=== PATIENT | male | born 1955 | race Caucasian/White ===

== ENCOUNTER 2017-02-17 11:46 | Emergency (ER) | payer BC ==
[2017-02-17 12:13] VITALS: BP 126/76
--- NOTE | 2017-02-17 12:43 | EDM.PDOC ---
ED HPI Trauma - General Chief Complaint: Upper Extremity Injury/Pain Stated Complaint: Thumb swelling Time Seen by Provider: 02/17/17 12:25 Source: Reports: Patient, RN notes reviewed History Limitations: Reports: No limitations - History of Present Illness INITIAL COMMENTS - FREE TEXT/NARRATIVE: 61 year old male presents to the ED with 1 day history of left thumb swelling, redness, and pain. He has a history of an amptuation to the thumb and says these symptoms are similar to when he required an amputation. He also has amputations to his 3rd and 4th fingers as a result of a table saw accident. He also has a history of gout. He's had gout in his foot but never in his hands. He 's had no injury or skin lesions to the thumb. No fever or chills. Allergies/ADRs: Allergies cephalexin [From Keflex] Allergy (Verified 11/25/16 22:26) Rash codeine Allergy (Verified 11/25/16 22:26) Rash Penicillins Allergy (Verified 11/25/16 22:26) Rash Home Medications: Ambulatory Orders Aspirin [Halfprin] 81 mg PO DAILY 05/08/15 [Confirmed 11/25/16] Levothyroxine 75 mcg PO DAILY 05/08/15 [Confirmed 11/25/16] Cholecalciferol (Vitamin D3) [Vitamin D3] 1,000 mg PO DAILY 11/25/16 [Confirmed 11/25/16] Cyanocobalamin (Vitamin B12) [Vitamin B12] 2,000 mg PO DAILY 11/25/16 [ Confirmed 11/25/16] Diltiazem HCl [Dilt-Xr] 180 mg PO DAILY 11/25/16 [Confirmed 11/25/16] Garlic 1 each PO DAILY 11/25/16 [Confirmed 11/25/16] Krill/Om-3/DHA/EPA/Phospho/Ast [Krill Oil 1,000 mg Softgel] 2 tab PO DAILY 11/25 [Confirmed 11/25/16] Loratadine [Claritin] 10 mg PO DAILY 11/25/16 [Confirmed 11/25/16] Methylphenidate [Ritalin] 5 mg PO ASDIRECTED PRN 11/25/16 [Confirmed 11/25/16] Multivitamin [Multivitamins] 1 tab PO DAILY 11/25/16 [Confirmed 11/25/16] Policos/Inositol Niac/Garlic [Arnhajlshpt-Nfdwfn-Ypbhps] 1 tab PO DAILY [Confirmed 11/25/16] Psyllium Husk [Psyllium] 0.4 gm PO DAILY 11/25/16 [Confirmed 11/25/16] Saw/Vit E/Sod Sandie/Lyc/Beta/Pyg [Prostate Health Caplet] 1 tab PO DAILY 11/25/16 [Confirmed 11/25/16] Ubidecarenone [COQ-10] 100 mg PO DAILY 11/25/16 [Confirmed 11/25/16] Rosuvastatin [Crestor] 5 mg PO BEDTIME #30 tablet 11/26/16 Past Medical History Other HEENT History: Lasik Cardiovascular History: Reports: Afib, High cholesterol, [place] Respiratory History: Reports: Sleep apnea Other Respiratory History: Not using CPAP anymore at this time - Has an allergic reaction to it. Currently uses 2L oxygen at night for sleep apnea Musculoskeletal History: Reports: Gout, Other (see below) Other Musculoskeletal History: Low back surgery x2. herniated disc 1986. discs were pinching spinal cord 2016 Endocrine/Metabolic History: Reports: Hypothyroidism Other Dermatologic History: Has had a few moles and areas of skin removed in case it is cancerous. 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 Implant in upper right to hold in 4 teeth. GI Surgical History: Reports: Hernia repair/other Other GI Surgeries/Procedures: 3 hernia repairs. colonoscopy a few years ago Neurological Surgical History: Reports: Lumbar spine Musculoskeletal Surgical History: Reports: Amputation Other Musculoskeletal Surgeries/Procedures:: left hand 3rd and 4th and thumb, index finger was reattached Social & Family History - Family History Neurological: Reports: Alzheimers disease Other Oncologic Family History: father had cancer - Tobacco Use Smoking Status *Q: Former Smoker Years of Tobacco use: 5 Packs/Tins Daily: 0.1 Used Tobacco, but Quit: No Month Tobacco Last Used: 7 - Caffeine Use Caffeine Use: Reports: Soda - Alcohol Use Days Per Week of Alcohol Use: 7 Number of Drinks Per Day: 2 Total Drinks Per Week: 14 - Recreational Drug Use Recreational Drug Use: No Drug Use in Last 12 Months: No Other Recreational Drug Type: pot when he was young - Living Situation & Occupation Living situation: Reports: , with spouse 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 Denies: Shortness of Breath Cardiovascular: Reports: no symptoms. Denies: chest pain Musculoskeletal: Reports: other (left thumb pain) Skin: Reports: erythema (left thumb) Neurological: Reports: No Symptoms. Denies: Numbness, Tingling Trauma Exam - Physical Exam Exam: See Below Exam Limited By: No limitations General Appearance: Reports: alert, WD/WN, no apparent distress Respiratory Exam: Reports: no respiratory distress, lungs clear Cardiovascular: Reports: regular rate, rhythm Extremities: Reports: other (swelling and tenderness to left thumb, mild erythema. No increased warmth. No skin lesions. No drainage. Amptuations noted to left thumb, 3rd and 4th fingers. Deformity noted to left index finger which is chronic.) Neurologic: Reports: no motor/sensory deficits, alert, normal mood/affect Course - Vital Signs Last Recorded V/S: Last Vital Signs Temp 98.0 F 02/17/17 12:11 Pulse 62 02/17/17 12:11 Resp 20 02/17/17 12:11 BP 126/76 02/17/17 12:11 Pulse Ox 94 L 02/17/17 12:11 - Re-Assessments/Exams Free Text/Narrative Re-Assessment/Exam: Differential includes infection versus gout. Patient has no fever or signs of systemic illness, therefore labs are not indicated at this time. Will start on doxycycline 100mg PO BID x10 days (sent to [facility]). Also will have him take 3 day course of Naproxyn. Cautioned about prolonged use of NSAIDs while on cardiac mediations. 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
== END 2017-02-17 12:55 | disposition home or self-care (01) ==
LOC: JD.ED 11:46
DX: M19.042 Primary osteoarthritis, left hand (principal); I10 Essential (primary) hypertension; E78.00 Pure hypercholesterolemia, unspecified; G47.30 Sleep apnea, unspecified; E03.9 Hypothyroidism, unspecified; Z98.890 Other specified postprocedural states; Z79.899 Other long term (current) drug therapy; Z87.891 Personal history of nicotine dependence; Z79.82 Long term (current) use of aspirin; Z88.0 Allergy status to penicillin; Z88.1 Allergy status to other antibiotic agents; Z88.5 Allergy status to narcotic agent
CPT/HCPCS: 99283

== ENCOUNTER 2017-03-15 03:57 | Emergency (ER) | payer BC ==
[2017-03-15 04:06] VITALS: BP 121/90
[2017-03-15] MEDS ORDERED: Sodium Chloride 0.9% 10 ML Syringe FLUSH PRN (04:19)
[2017-03-15] MEDS ORDERED: Diltiazem 25 MG/5 ML SDV IVPUSH ONE (04:20)
--- NOTE | 2017-03-15 04:38 | EDM.PDOC ---
ED HPI GENERAL MEDICAL PROBLEM - General Chief Complaint: Back Pain or Injury Stated Complaint: BACK PAIN Time Seen by Provider: 03/15/17 04:06 Source of Information: Reports: Patient History Limitations: Reports: No Limitations - History of Present Illness INITIAL COMMENTS - FREE TEXT/NARRATIVE: The patient presents with left upper back pain and left scapula pain. This started last night before he went to bed. He did not lift anything, twist or fall. He has no recollection of an injury. He has a history of an [place] and A- fib. He did not need a stent and he is no on any blood thinners. He has no pain in his chest. He has no fever, chills, cough, congestion or runny nose. He has no shortness of breath. His back hurts more when taking a deep breath. He has no abdominal pain, nausea or vomiting. Onset: gradual Duration: Day(s): (Last night before bed) Location: Reports: back (Left upper back) Quality: Reports: Sharp Severity: moderate Improves with: Reports: None Worsens with: Reports: Breathing, Movement Associated Symptoms: Denies: chest pain, cough, fever/chills, nausea/vomiting, shortness of breath Left Middle Back Pain Score (Numeric/FACES): 8 - Related Data Allergies Allergy/AdvReac Type Severity Reaction Status Date / Time cephalexin [From Keflex] Allergy Rash Verified 03/15/17 04:06 codeine Allergy Rash Verified 03/15/17 04:06 Penicillins Allergy Rash Verified 03/15/17 04:06 Home Meds: Home Meds Aspirin [Halfprin] 81 mg PO DAILY 05/08/15 [History] Levothyroxine 75 mcg PO DAILY 05/08/15 [History] Cholecalciferol (Vitamin D3) [Vitamin D3] 1,000 mg PO DAILY 11/25/16 [History] Cyanocobalamin (Vitamin B12) [Vitamin B12] 2,000 mg PO DAILY 11/25/16 [History] Diltiazem HCl [Dilt-Xr] 180 mg PO DAILY 11/25/16 [History] Garlic 1 each PO DAILY 11/25/16 [History] Krill/Om-3/DHA/EPA/Phospho/Ast [Krill Oil 1,000 mg Softgel] 2 tab PO DAILY 11/25 [History] Loratadine [Claritin] 10 mg PO DAILY 11/25/16 [History] Methylphenidate [Ritalin] 5 mg PO ASDIRECTED PRN 11/25/16 [History] Multivitamin [Multivitamins] 1 tab PO DAILY 11/25/16 [History] Policos/Inositol Niac/Garlic [Mlsoilcfnqn-Dahcwi-Gsrmac] 1 tab PO DAILY [History] Psyllium Husk [Psyllium] 0.4 gm PO DAILY 11/25/16 [History] Saw/Vit E/Sod Sandie/Lyc/Beta/Pyg [Prostate Health Caplet] 1 tab PO DAILY 11/25/16 [History] Ubidecarenone [COQ-10] 100 mg PO DAILY 11/25/16 [History] Rosuvastatin [Crestor] 5 mg PO BEDTIME #30 tablet 11/26/16 [Rx] Past Medical History Other HEENT History: Lasik Cardiovascular History: Reports: Afib, High cholesterol, [place] Respiratory History: Reports: Sleep apnea Other Respiratory History: Not using CPAP anymore at this time - Has an allergic reaction to it. Currently uses 2L oxygen at night for sleep apnea Musculoskeletal History: Reports: Gout, Other (see below) Other Musculoskeletal History: Low back surgery x2. herniated disc 1986. discs were pinching spinal cord 2016 Endocrine/Metabolic History: Reports: Hypothyroidism Other Dermatologic History: Has had a few moles and areas of skin removed in case it is cancerous. 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 Implant in upper right to hold in 4 teeth. GI Surgical History: Reports: Hernia repair/other Other GI Surgeries/Procedures: 3 hernia repairs. colonoscopy a few years ago Neurological Surgical History: Reports: Lumbar spine Musculoskeletal Surgical History: Reports: Amputation Other Musculoskeletal Surgeries/Procedures:: left hand 3rd and 4th and thumb, index finger was reattached Social & Family History - Family History Neurological: Reports: Alzheimers disease Other Oncologic Family History: father had cancer - Tobacco Use Smoking Status *Q: Unknown Ever Smoked Years of Tobacco use: 5 Packs/Tins Daily: 0.1 Used Tobacco, but Quit: No Month Tobacco Last Used: 7 - Caffeine Use Caffeine Use: Reports: Soda - Alcohol Use Days Per Week of Alcohol Use: 7 Number of Drinks Per Day: 2 Total Drinks Per Week: 14 - Recreational Drug Use Recreational Drug Use: No Drug Use in Last 12 Months: No Other Recreational Drug Type: pot when he was young - Living Situation & Occupation Living situation: Reports: , with spouse 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) ED ROS GENERAL - Review of Systems Review Of Systems: See Below Constitutional: Reports: No Symptoms HEENT: Reports: No Symptoms Respiratory: Reports: No Symptoms Cardiovascular: Reports: No Symptoms Endocrine: Reports: No Symptoms GI/Abdominal: Reports: No Symptoms : Reports: No Symptoms Musculoskeletal: Reports: Back Pain (Upper left back pain) Skin: Reports: No Symptoms Neurological: Reports: No Symptoms ED EXAM, UPPER BACK/NECK PAIN - Physical Exam Exam: See Below Exam Limited By: No Limitations General Appearance: Alert, No Apparent Distress Ears Exam: Normal External Exam Nose Exam: Normal Inspection Head Exam: Atraumatic, Normocephalic Neck Exam: Non-Tender, Normal Alignment, Normal Inspection Cardiovascular/Respiratory: No M/R/G, Normal Breath Sounds, No Respiratory Distress, Irregularly Irregular GI/Abdominal: Soft, Non-Tender, No Organomegaly Back Exam: Other (No pain upon palpation) Extremities: Normal Inspection Neurologic: No Motor/Sensory Deficits, Alert, Oriented x 3 EKG INTERPRETATION EKG Date: 03/15/17 Time: 04:12 Rhythm: a-fib Rate (beats/min): 92 [place]: normal QRS: normal ST-T: normal QT: normal Course - Vital Signs Last Recorded V/S: Last Vital Signs Temp 98.5 F 03/15/17 04:03 Pulse 100 03/15/17 04:03 Resp 18 03/15/17 04:03 BP 121/90 03/15/17 04:03 Pulse Ox 95 03/15/17 04:03 - Orders/Labs/Meds Orders: Active Orders 24 hr Category Date Time Status Cardiac Monitoring [RC] . DIRECTED Care 03/15/17 04:19 Active EKG 12 Lead [EKG Documentation Completion] [RC] STAT Care 03/15/17 04:12 Active Oxygen Therapy [RC] PRN Care 03/15/17 04:19 Active Peripheral IV Care [RC] . DIRECTED Care 03/15/17 04:20 Active Ang Chest [CT] Stat Exams 03/15/17 05:26 Taken Chest 1V Frontal [CR] Stat Exams 03/15/17 04:19 Taken Sodium Chloride 0.9% [Normal Saline] 100 ml Med 03/15/17 05:45 Active IV ASDIRECTED Sodium Chloride 0.9% [Saline Flush] Med 03/15/17 04:19 Active 10 ml FLUSH ASDIRECTED PRN Peripheral IV Insertion Adult [OM.PC] Stat Oth 03/15/17 04:19 Ordered Medication Orders Sodium Chloride (Normal Saline) 100 mls @ 4 mls/sec IV ASDIRECTED JOHNNIE Last Admin: 03/15/17 06:13 Dose: 4 mls/sec Sodium Chloride (Saline Flush) 10 ml FLUSH ASDIRECTED PRN PRN Reason: Keep Vein Open Last Admin: 03/15/17 04:27 Dose: 10 ml Labs: Laboratory Tests 03/15/17 03/15/17 03/15/17 Range/Units 04:43 04:43 04:43 WBC 10.73 H (4.23-9.07) K/mm3 RBC 5.09 (4.63-6.08) M/mm3 Hgb 14.9 (13.7-17.5) gm/L Hct 43.7 (40.1-51.0) % MCV 85.9 (79.0-92.2) fl MCH 29.3 (25.7-32.2) pg MCHC 34.1 (32.2-35.5) g/dl RDW Std Deviation 41.7 (35.1-43.9) fL Plt Count 250 (163-337) K/mm3 MPV 10.2 (9.4-12.3) fl Neut % (Auto) 59.0 (34.0-67.9) % Lymph % (Auto) 28.7 (21.8-53.1) % [place] % (Auto) 10.2 (5.3-12.2) % Eos % (Auto) 0.7 L (0.8-7.0) Baso % (Auto) 0.8 (0.1-1.2) % Neut # (Auto) 6.33 H (1.78-5.38) K/mm3 Lymph # (Auto) 3.08 (1.32-3.57) K/mm3 [place] # (Auto) 1.09 H (0.30-0.82) K/mm3 Eos # (Auto) 0.08 (0.04-0.54) K/mm3 Baso # (Auto) 0.09 H (0.01-0.08) K/mm3 D-Dimer, Quantitative 1.06 H (0.19-0.59) mg/L Sodium 140 (136-145) mEq/L Potassium 3.8 (3.5-5.1) mEq/L Chloride 106 (98-107) mEq/L Carbon Dioxide 26 (21-32) mEq/L Anion Gap 11.8 (5-15) BUN 18 (7-18) mg/dL Creatinine 1.3 (0.7-1.3) mg/dL Est Cr Clr Drug Dosing TNP Estimated GFR (MDRD) 56 (>60) mL/min BUN/Creatinine Ratio 13.8 L (14-18) Glucose 101 (80-115) mg/dL Calcium 8.4 L (8.5-10.1) mg/dL Total Bilirubin 0.6 (0.2-1.0) mg/dL AST 25 (15-37) U/L ALT 47 (16-63) U/L Alkaline Phosphatase 106 (46-116) U/L Troponin I < 0.017 (0.00-0.056) ng/mL Total Protein 6.7 (6.4-8.2) g/dl Albumin 3.3 L (3.4-5.0) g/dl Globulin 3.4 gm/dL Albumin/Globulin Ratio 1.0 (1-2) Meds: Medications Generic Name Dose Route Start Last Admin Trade Name Freq PRN Reason Stop Dose Admin Sodium Chloride 100 mls @ 4 mls/sec 03/15/17 05:45 03/15/17 06:13 Normal Saline IV 4 mls/sec ASDIRECTED JOHNNIE Administration Sodium Chloride 10 ml 03/15/17 04:19 03/15/17 04:27 Saline Flush FLUSH 10 ml ASDIRECTED PRN Administration Keep Vein Open Discontinued Medications Generic Name Dose Route Start Last Admin Trade Name Freq PRN Reason Stop Dose Admin Diltiazem HCl 10 mg 03/15/17 04:20 03/15/17 04:27 Diltiazem IVPUSH 03/15/17 04:21 10 mg ONETIME ONE Administration Iopamidol 100 ml 03/15/17 05:38 03/15/17 06:12 [id number] (76%) IVPUSH 03/15/17 05:39 100 ml ONETIME ONE Administration Iopamidol 40 ml 03/15/17 05:38 03/15/17 06:12 Isovue-370 (76%) IVPUSH 03/15/17 05:39 40 ml ONETIME ONE Administration - Re-Assessments/Exams Free Text/Narrative Re-Assessment/Exam: 03/15/17 04:39 I ordered an IV saline lock, EKG, CXR, labs, and cardizem 10mg IV. 03/15/17 05:38 His EKG shows A-fib at a rate of 92 with no acute changes. His CXR looks good. His WBC was slightly elevated at 10.73. His D-dimer was elevated at 1.06. His creatinine was normal at 1.3. His troponin was negative. I have ordered a CT angio of his chest. 03/15/17 06:[address] angio of his chest shows no pulmonary embolus identified, mildly aneutysmal ascending aorta at 4.5cm, coronary artery calcifications, mild bilateral dependent ground glass opacities, likely microatelectasis, mild mediastinal lymphadenopathy, nonspecific, mildly prominent caliber of some upper abdominal small bowel loops nonspecific. I do not think that mild aneurysm is causing the pain. I feel it is his upper back. I will give him a dose of flexeril 10mg now. He does not want a prescription. I will have him follow up with Adela Parra. Departure - Departure Time of Disposition: 07:05 Disposition: Home, Self-Care 01 Condition: good Clinical Impression: Aortic aneurysm Qualifiers: Aortic location: thoracic aorta Presence of rupture: without rupture Qualified Code(s): I71.2 - Thoracic aortic aneurysm, without rupture Thoracic back pain Qualifiers: Chronicity: acute Back pain laterality: left Qualified Code(s): M54.6 - Pain in thoracic spine - Discharge Information Referrals: Adela Parra PA-C [Primary Care Provider] - 1 Week Forms: ED Department Discharge Additional Instructions: Take motrin or aleve for the pain. Try ice or heat for your back which every feels better. You have a 4.5cm aneurysm of your aorta in your chest. Follow up with Adela Parra. This will need to be followed. Please return if you are worse. - My Orders Last 24 Hours: My Active Orders 03/15/17 04:12 EKG 12 Lead [EKG Documentation Completion] [RC] STAT 03/15/17 04:19 Cardiac Monitoring [RC] . DIRECTED Oxygen Therapy [RC] PRN Chest 1V Frontal [CR] Stat Sodium Chloride 0.9% [Saline Flush] 10 ml FLUSH ASDIRECTED PRN Peripheral IV Insertion Adult [OM.PC] Stat 03/15/17 04:20 Peripheral IV Care [RC] . DIRECTED 03/15/17 05:26 Ang Chest [CT] Stat 03/15/17 05:45 Sodium Chloride 0.9% [Normal Saline] 100 ml IV ASDIRECTED - Assessment/Plan Last 24 Hours: My Active Orders 03/15/17 04:12 EKG 12 Lead [EKG Documentation Completion] [RC] STAT 03/15/17 04:19 Cardiac Monitoring [RC] . DIRECTED Oxygen Therapy [RC] PRN Chest 1V Frontal [CR] Stat Sodium Chloride 0.9% [Saline Flush] 10 ml FLUSH ASDIRECTED PRN Peripheral IV Insertion Adult [OM.PC] Stat 03/15/17 04:20 Peripheral IV Care [RC] . DIRECTED 03/15/17 05:26 Ang Chest [CT] Stat 03/15/17 05:45 Sodium Chloride 0.9% [Normal Saline] 100 ml IV ASDIRECTED
[2017-03-15] MEDS ORDERED: Iopamidol 755 Mg/ML 100 ML Bottle IVPUSH ONE (05:38)
[2017-03-15] MEDS ORDERED: Iopamidol 755 MG/ML 50 ML Bottle IVPUSH ONE (05:38)
[2017-03-15] MEDS ORDERED: Sodium Chloride 0.9% 100 ML IV SCH (05:45)
[2017-03-15] MEDS ORDERED: Cyclobenzaprine 10 MG Tab PO ONE (06:58)
--- NOTE | 2017-03-15 07:02 | CT ---
CT chest Technique: Multiple axial sections were obtained from above the lung apices inferiorly through the lung bases. Intravenous contrast was utilized. Study has been performed as a pulmonary angiogram protocol. Comparison: No previous chest CT, previous chest x-ray of 11/25/16. Findings: Pulmonary arteries are well-opacified. No filling defects are identified to indicate pulmonary embolism. Ascending aorta is mildly aneurysmal with AP dimension of 4.5 cm. Mediastinum and hilar regions show lymph nodes which are felt to be benign. No further follow-up is felt to be needed. Mild coronary artery calcification is seen. No pericardial thickening is identified. Visualized upper abdominal structures shows a loop is slightly prominent small bowel within the left upper abdomen. This is likely incidental if patient has no abdominal symptoms, please correlate. Patchy groundglass appearance is seen within the chest. Lungs otherwise are clear. Bone window settings were reviewed which appears within normal limits for the patient's age. Impression: 1. Mild groundglass appearance throughout the chest. Differential includes pneumonitis, subsegmental atelectasis as well as fibrosis if patient is a smoker or has chronic chemical exposure. 2. No findings of pulmonary embolism are seen. 3. Slightly aneurysmal ascending aorta at 4.5 cm. 4. Other findings as described above, most likely incidental. Diagnostic code #3 I agree with preliminary report issued by [facility]ank (preliminary report dictated on 03/15/17, 7:38 AM Central Time)
--- NOTE | 2017-03-15 13:41 | CR ---
Chest: Portable view of the chest was obtained. Comparison: Previous chest x-ray of 11/25/16. Heart size appears within normal limits for portable technique. Tortuous thoracic aorta is seen. Lungs are clear. Bony structures are grossly intact. Impression: 1. Nothing acute is identified on portable chest x-ray. Diagnostic code #1
== END 2017-03-15 07:20 | disposition home or self-care (01) ==
LOC: JD.ED 03:57
DX: I71.2 Thoracic aortic aneurysm, without rupture (principal); M54.6 Pain in thoracic spine; I25.2 Old myocardial infarction; E78.00 Pure hypercholesterolemia, unspecified; G47.30 Sleep apnea, unspecified; E03.9 Hypothyroidism, unspecified; Z98.890 Other specified postprocedural states; Z79.82 Long term (current) use of aspirin; Z79.899 Other long term (current) drug therapy; Z88.0 Allergy status to penicillin; Z88.5 Allergy status to narcotic agent; Z88.1 Allergy status to other antibiotic agents
CPT/HCPCS: 36415; 71010; 71275; 80053; 84484; 85025; 85379; 93005; 96374; 99284; A9270; J7030; J7050; Q9967; J3490

== ENCOUNTER 2017-07-13 15:05 | Emergency (ER) | payer BC ==
--- NOTE | 2017-07-13 15:23 | EDM.PDOC ---
ED HPI GENERAL MEDICAL PROBLEM - General Chief Complaint: Cardiovascular Problem Stated Complaint: AFIB Time Seen by Provider: 07/13/17 15:22 - History of Present Illness INITIAL COMMENTS - FREE TEXT/NARRATIVE: 62-year-old male presents to the emergency room with an irregular rapid heart rate. Patient has a history of atrial fibrillation he is not on blood thinners he is scheduled for ablation in August in is due to start eloquis here in another week. The patient noticed irregular faster than normal fluttering heart rate several hours ago he took an extra Cardizem he usually takes once a day. He did this a couple hours ago with no relief. Patient denies any chest pain chest pressure no breathing difficulties no shortness of breath no worsening lower extremity edema. The patient is on diltiazem daily as well as his Rythmol twice daily. The patient does state that he was drinking more heavily than normal last night he had 11 or 12 shots. - Related Data Allergies Allergy/AdvReac Type Severity Reaction Status Date / Time cephalexin [From Keflex] Allergy Rash Verified 07/13/17 15:14 codeine Allergy Rash Verified 07/13/17 15:14 Home Meds: Home Meds Aspirin [Halfprin] 81 mg PO DAILY 05/08/15 [History] Levothyroxine 75 mcg PO DAILY 05/08/15 [History] Cholecalciferol (Vitamin D3) [Vitamin D3] 1,000 mg PO DAILY 11/25/16 [History] Cyanocobalamin (Vitamin B12) [Vitamin B12] 2,000 mg PO DAILY 11/25/16 [History] Diltiazem HCl [Dilt-Xr] 180 mg PO DAILY 11/25/16 [History] Garlic 1 each PO DAILY 11/25/16 [History] Krill/Om-3/DHA/EPA/Phospho/Ast [Krill Oil 1,000 mg Softgel] 2 tab PO DAILY 11/25 [History] Loratadine [Claritin] 10 mg PO DAILY 11/25/16 [History] Methylphenidate [Ritalin] 10 mg PO ASDIRECTED PRN 11/25/16 [History] Multivitamin [Multivitamins] 1 tab PO DAILY 11/25/16 [History] Policos/Inositol Niac/Garlic [Mrtgkpyffzk-Iutuzo-Ifokuu] 1 tab PO DAILY [History] Ubidecarenone [COQ-10] 100 mg PO DAILY 11/25/16 [History] Rosuvastatin [Crestor] 5 mg PO BEDTIME #30 tablet 11/26/16 [Rx] Beta-Glucan, (1-3) (1-4) [Beta Glucan] 1 gm PO DAILY 07/13/17 [History] Propafenone HCl [Propafenone HCl ER] 1 cap PO BID 07/13/17 [History] Past Medical History Other HEENT History: Lasik Cardiovascular History: Reports: Afib, Aneurysm, High Cholesterol, [place] Other Cardiovascular History: 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 Currently uses 2L oxygen at night for sleep apnea Musculoskeletal History: Reports: Gout, Other (See Below) Other Musculoskeletal History: Low back surgery x2. herniated disc 1986. discs were pinching spinal cord 2015 Neurological History: Reports: None Endocrine/Metabolic History: Reports: Hypothyroidism Other Dermatologic History: Has had a few moles and areas of skin removed in case it is cancerous. 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 - Past Surgical History HEENT Surgical History: Reports: Eye Surgery, Tonsillectomy Cardiovascular Surgical History: Reports: Other (See Below) Other Cardiovascular Surgeries/Procedures: Ablation scheduled in 2016 GI Surgical History: Reports: Hernia Repair/Other Neurological Surgical History: Reports: Lumbar Spine Social & Family History - Family History Neurological: Reports: Alzheimers Disease Other Oncologic Family History: father had cancer - Tobacco Use Smoking Status *Q: Former Smoker Years of Tobacco use: 5 Packs/Tins Daily: 0.1 Used Tobacco, but Quit: Yes Month Tobacco Last Used: 07/13/2010 - Caffeine Use Caffeine Use: Reports: Soda - Alcohol Use Days Per Week of Alcohol Use: 7 Number of Drinks Per Day: 2 Total Drinks Per Week: 14 - Recreational Drug Use Recreational Drug Use: No Drug Use in Last 12 Months: No Other Recreational Drug Type: pot when he was young - Living Situation & Occupation Living situation: Reports: , with Spouse Occupation: Employed ED ROS GENERAL - Review of Systems Review Of Systems: See Below Constitutional: Reports: No Symptoms HEENT: Reports: No Symptoms Respiratory: Reports: No Symptoms Cardiovascular: Reports: Palpitations. Denies: Chest Pain, Edema, Lightheadedness, Orthopnea GI/Abdominal: Reports: No Symptoms Neurological: Reports: No Symptoms Psychiatric: Reports: No Symptoms ED EXAM, GENERAL - Physical Exam Exam: See Below Exam Limited By: No Limitations General Appearance: Alert, No Apparent Distress Head: Atraumatic, Normocephalic Neck: Normal Inspection, Full Range of Motion. No: Carotid Bruit, Lymphadenopathy (L), Lymphadenopathy (R) Respiratory/Chest: No Respiratory Distress, Lungs Clear, Normal Breath Sounds Cardiovascular: No Edema, No Murmur, Tachycardia, Irregularly Irregular GI/Abdominal: Normal Bowel Sounds, Soft, No Mass Extremities: Normal Inspection, No Pedal Edema Course - Vital Signs Last Recorded V/S: Last Vital Signs Temp 36.4 C 07/13/17 15:09 Pulse 117 H 07/13/17 15:09 Resp 18 07/13/17 15:09 BP 131/86 07/13/17 15:09 Pulse Ox 93 L 07/13/17 15:09 - Orders/Labs/Meds Orders: Active Orders 24 hr Category Date Time Status EKG Documentation Completion [RC] STAT Care 07/13/17 15:21 Active EKG Documentation Completion [RC] STAT Care 07/13/17 16:37 Active Chest 1V Frontal [CR] Stat Exams 07/13/17 15:21 Taken Lactated Ringers [Ringers, Lactated] 1,000 ml Med 07/13/17 15:45 Active IV ASDIRECTED Medication Orders Lactated Ringer's (Ringers, Lactated) 1,000 mls @ 50 mls/hr IV ASDIRECTED JOHNNIE Last Admin: 07/13/17 15:44 Dose: 50 mls/hr Labs: Laboratory Tests 07/13/17 07/13/17 07/13/17 Range/Units 15:25 15:25 15:25 WBC 7.84 (4.23-9.07) K/mm3 RBC 5.01 (4.63-6.08) M/mm3 Hgb 14.6 (13.7-17.5) gm/L Hct 43.2 (40.1-51.0) % MCV 86.2 (79.0-92.2) fl MCH 29.1 (25.7-32.2) pg MCHC 33.8 (32.2-35.5) g/dl RDW Std Deviation 42.1 (35.1-43.9) fL Plt Count 238 (163-337) K/mm3 MPV 10.8 (9.4-12.3) fl Neutrophils % (Manual) 64 H (40-60) % Band Neutrophils % 0 (0-10) % Lymphocytes % (Manual) 28 (20-40) % Atypical Lymphs % 0 % Monocytes % (Manual) 5 (2-10) % Eosinophils % (Manual) 3 (0.8-7.0) % Basophils % (Manual) 0 L (0.2-1.2) Platelet Estimate Adequate RBC Morph Comment Normal PT 10.7 (8.0-13.0) SECONDS INR 0.98 APTT 27 (22-36) SECONDS Sodium 141 (136-145) mEq/L Potassium 3.9 (3.5-5.1) mEq/L Chloride 106 (98-107) mEq/L Carbon Dioxide 27 (21-32) mEq/L Anion Gap 11.9 (5-15) BUN 20 H (7-18) mg/dL Creatinine 1.3 (0.7-1.3) mg/dL Est Cr Clr Drug Dosing 61.00 mL/min Estimated GFR (MDRD) 56 (>60) mL/min BUN/Creatinine Ratio 15.4 (14-18) Glucose 99 (80-115) mg/dL Calcium 9.3 (8.5-10.1) mg/dL Phosphorus (2.6-4.7) mg/dL Magnesium (1.8-2.4) mg/dl Total Bilirubin 0.4 (0.2-1.0) mg/dL AST 35 (15-37) U/L ALT 37 (16-63) U/L Alkaline Phosphatase 87 (46-116) U/L Troponin I < 0.017 (0.00-0.056) ng/mL Total Protein 7.0 (6.4-8.2) g/dl Albumin 3.7 (3.4-5.0) g/dl Globulin 3.3 gm/dL Albumin/Globulin Ratio 1.1 (1-2) Ethyl Alcohol (0.00) gm% 07/13/17 Range/Units 15:25 WBC (4.23-9.07) K/mm3 RBC (4.63-6.08) M/mm3 Hgb (13.7-17.5) gm/L Hct (40.1-51.0) % MCV (79.0-92.2) fl MCH (25.7-32.2) pg MCHC (32.2-35.5) g/dl RDW Std Deviation (35.1-43.9) fL Plt Count (163-337) K/mm3 MPV (9.4-12.3) fl Neutrophils % (Manual) (40-60) % Band Neutrophils % (0-10) % Lymphocytes % (Manual) (20-40) % Atypical Lymphs % % Monocytes % (Manual) (2-10) % Eosinophils % (Manual) (0.8-7.0) % Basophils % (Manual) (0.2-1.2) Platelet Estimate RBC Morph Comment PT (8.0-13.0) SECONDS INR APTT (22-36) SECONDS Sodium (136-145) mEq/L Potassium (3.5-5.1) mEq/L Chloride (98-107) mEq/L Carbon Dioxide (21-32) mEq/L Anion Gap (5-15) BUN (7-18) mg/dL Creatinine (0.7-1.3) mg/dL Est Cr Clr Drug Dosing mL/min Estimated GFR (MDRD) (>60) mL/min BUN/Creatinine Ratio (14-18) Glucose (80-115) mg/dL Calcium (8.5-10.1) mg/dL Phosphorus 4.0 (2.6-4.7) mg/dL Magnesium 1.9 (1.8-2.4) mg/dl Total Bilirubin (0.2-1.0) mg/dL AST (15-37) U/L ALT (16-63) U/L Alkaline Phosphatase (46-116) U/L Troponin I (0.00-0.056) ng/mL Total Protein (6.4-8.2) g/dl Albumin (3.4-5.0) g/dl Globulin gm/dL Albumin/Globulin Ratio (1-2) Ethyl Alcohol 0.00 (0.00) gm% Meds: Medications Generic Name Dose Route Start Last Admin Trade Name Freq PRN Reason Stop Dose Admin Lactated Ringer's 1,000 mls @ 50 mls/hr 07/13/17 15:45 07/13/17 15:44 Ringers, Lactated IV 50 mls/hr ASDIRECTED JOHNNIE Administration Discontinued Medications Generic Name Dose Route Start Last Admin Trade Name Donte PRN Reason Stop Dose Admin Diltiazem HCl 10 mg 07/13/17 15:40 07/13/17 15:45 Diltiazem IVPUSH 07/13/17 15:41 10 mg ONETIME ONE Administration - Re-Assessments/Exams Free Text/Narrative Re-Assessment/Exam: 07/13/17 17:13 Labs unremarkable chest x-ray shows mild rotation no acute cardiopulmonary changes. Patient was given 10 mg of IV diltiazem his rate slowed into the 80s and he converted into a sinus rhythm EKG was obtained which shows normal sinus rhythm intraventricular conduction delay no acute ST-T wave changes axis and intervals otherwise normal. No change from November of this year other than rhythm changes she was in atrial fib then now is in sinus. His initial EKG was fib flutter rate 120s Patient has done well and would like to go home did offer her repeat troponin prior to going home he would just like to go home at this point. Departure - Departure Time of Disposition: 17:22 Disposition: Home, Self-Care 01 Clinical Impression: Paroxysmal atrial fibrillation with rapid ventricular response Referrals: Adela Parra PA-C [Primary Care Provider] - Forms: ED Department Discharge Additional Instructions: Return to the emergency room with any questions problems or worsening symptoms. Follow-up with your physicians with your upcoming ablation and other medical problems as already scheduled. Continue your routine medications as directed. - My Orders Last 24 Hours: My Active Orders 07/13/17 15:21 EKG Documentation Completion [RC] STAT Chest 1V Frontal [CR] Stat 07/13/17 15:45 Lactated Ringers [Ringers, Lactated] 1,000 ml IV ASDIRECTED 07/13/17 16:37 EKG Documentation Completion [RC] STAT - Assessment/Plan Last 24 Hours: My Active Orders 07/13/17 15:21 EKG Documentation Completion [RC] STAT Chest 1V Frontal [CR] Stat 07/13/17 15:45 Lactated Ringers [Ringers, Lactated] 1,000 ml IV ASDIRECTED 07/13/17 16:37 EKG Documentation Completion [RC] STAT
[2017-07-13] MEDS ORDERED: Diltiazem 25 MG/5 ML SDV IVPUSH ONE (15:40)
[2017-07-13] MEDS ORDERED: Lactated Ringers 1,000 ML IV SCH (15:45)
[2017-07-13 17:51] VITALS: BP 120/63
--- NOTE | 2017-07-15 08:58 | CR ---
Chest: Portable view of the chest was obtained. Comparison: Previous chest x-ray of 03/15/[address] of 03/15/17. Heart size is within normal limits for portable technique. Tortuous thoracic aorta is seen. Lungs are clear. Bony structures are grossly intact. Impression: 1. Nothing acute is appreciated on portable chest x-ray. Diagnostic code #1
== END 2017-07-13 17:45 | disposition home or self-care (01) ==
LOC: JD.ED 15:05
DX: I48.0 Paroxysmal atrial fibrillation (principal); E78.00 Pure hypercholesterolemia, unspecified; I25.2 Old myocardial infarction; E03.9 Hypothyroidism, unspecified; Z88.5 Allergy status to narcotic agent; Z79.82 Long term (current) use of aspirin; Z79.899 Other long term (current) drug therapy; Z98.890 Other specified postprocedural states; Z87.891 Personal history of nicotine dependence
CPT/HCPCS: 36415; 71010; 80053; 83735; 84100; 84484; 85025; 85610; 85730; 93005; 96361; 96374; 99285; G0480; J3490; J7120; 99284

== ENCOUNTER 2017-07-18 19:41 | Emergency (ER) | payer BC ==
[2017-07-18] MEDS ORDERED: Nitroglycerin 0.4 MG Tab.SL SL PRN (19:57)
[2017-07-18] MEDS ORDERED: Aspirin 81 MG Tab.Chew PO ONE (19:57)
[2017-07-18] MEDS ORDERED: Sodium Chloride 0.9% 1,000 ML IV SCH (20:00)
--- NOTE | 2017-07-18 20:05 | EDM.PDOC ---
ED HPI GENERAL MEDICAL PROBLEM - General Chief Complaint: Back Pain or Injury Stated Complaint: CP Time Seen by Provider: 07/18/17 19:41 - History of Present Illness INITIAL COMMENTS - FREE TEXT/NARRATIVE: 62-year-old male presents emergency room chest pain. Pain is subscapular on the right side. This pain started yesterday and is progressively getting worse it kind of comes and goes in a spasm-like fashion. Patient has significant history of paroxysmal atrial fibrillation he is going to start his novel anticoagulant tomorrow anticipating ablation in the near future. This pain is progressively been getting worse the patient tried ibuprofen 800 mg about 30 minutes ago. Patient's been taking his aspirin 81 mg every morning. Patient states change of position makes this worse but he's not sure exactly how to reproduce it. When he has the pain is difficult for him to catch big breath. The patient was seen here on Saturday with a tachyarrhythmia he is doing better with regards to this he has not had any more alcohol however he's drinking some diet Coke. Middle Back Pain Score (Numeric/FACES): 10 - Related Data Allergies Allergy/AdvReac Type Severity Reaction Status Date / Time cephalexin [From Keflex] Allergy Rash Verified 07/18/17 19:52 codeine Allergy Rash Verified 07/18/17 19:52 Home Meds: Home Meds Aspirin [Halfprin] 81 mg PO DAILY 05/08/15 [History] Levothyroxine 75 mcg PO DAILY 05/08/15 [History] Cholecalciferol (Vitamin D3) [Vitamin D3] 1,000 mg PO DAILY 11/25/16 [History] Cyanocobalamin (Vitamin B12) [Vitamin B12] 2,000 mg PO DAILY 11/25/16 [History] Diltiazem HCl [Dilt-Xr] 180 mg PO DAILY 11/25/16 [History] Garlic 1 each PO DAILY 11/25/16 [History] Krill/Om-3/DHA/EPA/Phospho/Ast [Krill Oil 1,000 mg Softgel] 2 tab PO DAILY 11/25 [History] Loratadine [Claritin] 10 mg PO DAILY 11/25/16 [History] Methylphenidate [Ritalin] 10 mg PO ASDIRECTED PRN 11/25/16 [History] Multivitamin [Multivitamins] 1 tab PO DAILY 11/25/16 [History] Policos/Inositol Niac/Garlic [Vcktsortonn-Ljkbah-Wmyonr] 1 tab PO DAILY [History] Ubidecarenone [COQ-10] 100 mg PO DAILY 11/25/16 [History] Rosuvastatin [Crestor] 5 mg PO BEDTIME #30 tablet 11/26/16 [Rx] Beta-Glucan, (1-3) (1-4) [Beta Glucan] 1 gm PO DAILY 07/13/17 [History] Propafenone HCl [Propafenone HCl ER] 1 cap PO BID 07/13/17 [History] Hydrocodone/Acetaminophen [Tangier 5-325 Tablet] 1 each PO Q4H PRN #15 tablet [Rx] Past Medical History Other HEENT History: Lasik Cardiovascular History: Reports: Afib, Aneurysm, High Cholesterol, [place] Other Cardiovascular History: 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 Currently uses 2L oxygen at night for sleep apnea Musculoskeletal History: Reports: Gout, Other (See Below) Other Musculoskeletal History: Low back surgery x2. herniated disc 1986. discs were pinching spinal cord 2015 Neurological History: Reports: None Endocrine/Metabolic History: Reports: Hypothyroidism Other Dermatologic History: Has had a few moles and areas of skin removed in case it is cancerous. 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 - Past Surgical History HEENT Surgical History: Reports: Eye Surgery, Tonsillectomy Cardiovascular Surgical History: Reports: Other (See Below) Other Cardiovascular Surgeries/Procedures: Ablation scheduled in 2016 GI Surgical History: Reports: Hernia Repair/Other Neurological Surgical History: Reports: Lumbar Spine Social & Family History - Family History Neurological: Reports: Alzheimers Disease Other Oncologic Family History: father had cancer - Tobacco Use Smoking Status *Q: Former Smoker Years of Tobacco use: 5 Packs/Tins Daily: 0.1 Used Tobacco, but Quit: Yes Month Tobacco Last Used: 7 years ago - Caffeine Use Caffeine Use: Reports: None - Alcohol Use Days Per Week of Alcohol Use: 7 Number of Drinks Per Day: 2 Total Drinks Per Week: 14 - Recreational Drug Use Recreational Drug Use: No Drug Use in Last 12 Months: No Other Recreational Drug Type: pot when he was young - Living Situation & Occupation Living situation: Reports: , with Spouse Occupation: Employed ED ROS GENERAL - Review of Systems Review Of Systems: See Below Constitutional: Reports: No Symptoms HEENT: Reports: No Symptoms Respiratory: Reports: Pleuritic Chest Pain. Denies: Cough, Sputum Cardiovascular: Reports: Chest Pain, Edema. Denies: Dyspnea on Exertion Endocrine: Reports: No Symptoms GI/Abdominal: Reports: No Symptoms : Reports: No Symptoms Neurological: Reports: No Symptoms ED EXAM, GENERAL - Physical Exam Exam: See Below Exam Limited By: No Limitations General Appearance: Alert, No Apparent Distress Head: Atraumatic, Normocephalic Neck: Normal Inspection, Supple, Non-Tender, Full Range of Motion. No: Lymphadenopathy (R) Respiratory/Chest: No Respiratory Distress, Lungs Clear, Normal Breath Sounds Cardiovascular: Regular Rate, Rhythm, No Murmur, Other (He is not interested at this time he has scant pitting edema this is normal for him) GI/Abdominal: Normal Bowel Sounds, Soft, Non-Tender, No Organomegaly, No Distention, No Abnormal Bruit, No Mass Back Exam: Normal Inspection. No: CVA Tenderness (L), CVA Tenderness (R), Paraspinal Tenderness, Vertebral Tenderness Neurological: Alert, Oriented, Normal Cognition EKG INTERPRETATION EKG Date: 07/18/17 Rhythm: NSR [place]: Normal P-Wave: Present QRS: Other (Interventricular conduction delay) ST-T: Other (Nonspecific nondiagnostic changes) QT: Normal Comparison: No Change (No change from recent EKG) EKG Interpretation Comments: Abnormal but stable Course - Vital Signs Last Recorded V/S: Last Vital Signs Temp 36.8 C 07/18/17 19:46 Pulse 57 L 07/18/17 21:36 Resp 16 07/18/17 21:36 BP 97/59 L 07/18/17 21:36 Pulse Ox 97 07/18/17 21:36 - Orders/Labs/Meds Orders: Active Orders 24 hr Category Date Time Status EKG Documentation Completion [RC] STAT Care 07/18/17 20:00 Active Ang Chest [CT] Stat Exams 07/18/17 21:27 Taken Chest 1V Frontal [CR] Stat Exams 07/18/17 19:56 Taken Nitroglycerin [Nitrostat] Med 07/18/17 19:57 Active 0.4 mg SL Q5M PRN Sodium Chloride 0.9% [Normal Saline] 1,000 ml Med 07/18/17 20:00 Active IV ASDIRECTED Medication Orders Sodium Chloride (Normal Saline) 1,000 mls @ 50 mls/hr IV ASDIRECTED JOHNNIE Last Admin: 07/18/17 20:09 Dose: 50 mls/hr Nitroglycerin (Nitrostat) 0.4 mg SL Q5M PRN PRN Reason: Chest Pain Last Admin: 07/18/17 20:09 Dose: 0.4 mg Labs: Laboratory Tests 07/18/17 07/18/17 07/18/17 Range/Units 20:02 20:02 20:02 WBC 9.59 H (4.23-9.07) K/mm3 RBC 4.73 (4.63-6.08) M/mm3 Hgb 13.9 (13.7-17.5) gm/L Hct 40.6 (40.1-51.0) % MCV 85.8 (79.0-92.2) fl MCH 29.4 (25.7-32.2) pg MCHC 34.2 (32.2-35.5) g/dl RDW Std Deviation 41.9 (35.1-43.9) fL Plt Count 229 (163-337) K/mm3 MPV 10.6 (9.4-12.3) fl Neutrophils % (Manual) 61 H (40-60) % Band Neutrophils % 0 (0-10) % Lymphocytes % (Manual) 26 (20-40) % Atypical Lymphs % 0 % Monocytes % (Manual) 7 (2-10) % Eosinophils % (Manual) 6 (0.8-7.0) % Basophils % (Manual) 0 L (0.2-1.2) Platelet Estimate Adequate RBC Morph Comment Normal PT 10.8 (8.0-13.0) SECONDS INR 0.99 APTT 28 (22-36) SECONDS D-Dimer, Quantitative 0.97 H (0.19-0.59) mg/L Sodium 139 (136-145) mEq/L Potassium 3.6 (3.5-5.1) mEq/L Chloride 106 (98-107) mEq/L Carbon Dioxide 26 (21-32) mEq/L Anion Gap 10.6 (5-15) BUN 23 H (7-18) mg/dL Creatinine 1.3 (0.7-1.3) mg/dL Est Cr Clr Drug Dosing 61.00 mL/min Estimated GFR (MDRD) 56 (>60) mL/min BUN/Creatinine Ratio 17.7 (14-18) Glucose 127 H (80-115) mg/dL Calcium 9.1 (8.5-10.1) mg/dL Total Bilirubin 0.4 (0.2-1.0) mg/dL AST 28 (15-37) U/L ALT 35 (16-63) U/L Alkaline Phosphatase 81 (46-116) U/L Troponin I < 0.017 (0.00-0.056) ng/mL Total Protein 6.8 (6.4-8.2) g/dl Albumin 3.6 (3.4-5.0) g/dl Globulin 3.2 gm/dL Albumin/Globulin Ratio 1.1 (1-2) 07/18/17 Range/Units 22:35 WBC (4.23-9.07) K/mm3 RBC (4.63-6.08) M/mm3 Hgb (13.7-17.5) gm/L Hct (40.1-51.0) % MCV (79.0-92.2) fl MCH (25.7-32.2) pg MCHC (32.2-35.5) g/dl RDW Std Deviation (35.1-43.9) fL Plt Count (163-337) K/mm3 MPV (9.4-12.3) fl Neutrophils % (Manual) (40-60) % Band Neutrophils % (0-10) % Lymphocytes % (Manual) (20-40) % Atypical Lymphs % % Monocytes % (Manual) (2-10) % Eosinophils % (Manual) (0.8-7.0) % Basophils % (Manual) (0.2-1.2) Platelet Estimate RBC Morph Comment PT (8.0-13.0) SECONDS INR APTT (22-36) SECONDS D-Dimer, Quantitative (0.19-0.59) mg/L Sodium (136-145) mEq/L Potassium (3.5-5.1) mEq/L Chloride (98-107) mEq/L Carbon Dioxide (21-32) mEq/L Anion Gap (5-15) BUN (7-18) mg/dL Creatinine (0.7-1.3) mg/dL Est Cr Clr Drug Dosing mL/min Estimated GFR (MDRD) (>60) mL/min BUN/Creatinine Ratio (14-18) Glucose (80-115) mg/dL Calcium (8.5-10.1) mg/dL Total Bilirubin (0.2-1.0) mg/dL AST (15-37) U/L ALT (16-63) U/L Alkaline Phosphatase (46-116) U/L Troponin I < 0.017 (0.00-0.056) ng/mL Total Protein (6.4-8.2) g/dl Albumin (3.4-5.0) g/dl Globulin gm/dL Albumin/Globulin Ratio (1-2) Meds: Medications Generic Name Dose Route Start Last Admin Trade Name Freq PRN Reason Stop Dose Admin Sodium Chloride 1,000 mls @ 50 mls/hr 07/18/17 20:00 07/18/17 20:09 Normal Saline IV 50 mls/hr ASDIRECTED JOHNNIE Administration Nitroglycerin 0.4 mg 07/18/17 19:57 07/18/17 20:09 Nitrostat SL 0.4 mg Q5M PRN Administration Chest Pain Discontinued Medications Generic Name Dose Route Start Last Admin Trade Name Freq PRN Reason Stop Dose Admin Aspirin 324 mg 07/18/17 19:57 07/18/17 20:08 Aspirin PO 07/18/17 19:58 324 mg ONETIME ONE Administration Fentanyl 25 mcg 07/18/17 21:06 07/18/17 21:26 Sublimaze IVPUSH 07/18/17 21:07 25 mcg ONETIME ONE Administration Sodium Chloride 500 mls @ 999 mls/hr 07/18/17 21:26 Normal Saline IV 07/18/17 21:56 .BOLUS ONE Sodium Chloride 100 mls @ 4 mls/sec 07/18/17 22:40 07/18/17 23:02 Normal Saline IV 07/18/17 22:41 4 mls/sec ONETIME ONE Administration Iopamidol 50 ml 07/18/17 22:40 07/18/17 23:02 Isovue-370 (76%) IVPUSH 07/18/17 22:41 50 ml ONETIME ONE Administration Iopamidol 100 ml 07/18/17 22:40 07/18/17 23:02 Isovue-370 (76%) IVPUSH 07/18/17 22:41 100 ml ONETIME ONE Administration - Re-Assessments/Exams Free Text/Narrative Re-Assessment/Exam: 07/18/17 21:56 Labs were ordered his well's score for PE was 3 because no other definitive cause can be identified this is still low probability d-dimer was checked which was elevated troponin negative we'll give the patient some fluids and follow-up with the CT angiogram. 07/18/17 23:59 CTA was negative for PE no acute changes seen in the aorta no acute changes seen in the pleural space lungs. Patient's heart score is 31 point for his age 2.4 risk factors. He's had 2 negative troponins here in the emergency room. 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 His last stress test was for 5 years ago. He has follow-up with his airplane first officer early this next week he needs to discuss cardiac stress testing with his airplane first officer at that appointment. Departure - Departure Time of Disposition: 00:02 Disposition: Home, Self-Care 01 Clinical Impression: Chest pain - Discharge Information Prescriptions: Hydrocodone/Acetaminophen [Tangier 5-325 Tablet] 1 each PO Q4H PRN #15 tablet PRN Reason: Pain Referrals: Adela Parra PA-C [Primary Care Provider] - Forms: ED Department Discharge Additional Instructions: Return to the emergency room with any questions problems or worsening symptoms. Follow up with your airplane first officer next week as scheduled. Discuss the need for cardiac stress test. Start your eloquis as scheduled tomorrow. Do not take ibuprofen or Aleve while on blood thinners. - My Orders Last 24 Hours: My Active Orders 07/18/17 19:56 Chest 1V Frontal [CR] Stat 07/18/17 19:57 Nitroglycerin [Nitrostat] 0.4 mg SL Q5M PRN 07/18/17 20:00 EKG Documentation Completion [RC] STAT Sodium Chloride 0.9% [Normal Saline] 1,000 ml IV ASDIRECTED 07/18/17 21:27 Ang Chest [CT] Stat - Assessment/Plan Last 24 Hours: My Active Orders 07/18/17 19:56 Chest 1V Frontal [CR] Stat 07/18/17 19:57 Nitroglycerin [Nitrostat] 0.4 mg SL Q5M PRN 07/18/17 20:00 EKG Documentation Completion [RC] STAT Sodium Chloride 0.9% [Normal Saline] 1,000 ml IV ASDIRECTED 07/18/17 21:27 Ang Chest [CT] Stat
[2017-07-18] MEDS ORDERED: fentaNYL 100 MCG/2 ML SDV IVPUSH ONE (21:06)
[2017-07-18] MEDS ORDERED: Sodium Chloride 0.9% 500 ML IV ONE (21:26)
[2017-07-18 21:37] VITALS: BP 97/59
[2017-07-18] MEDS ORDERED: Iopamidol 755 MG/ML 50 ML Bottle IVPUSH ONE (22:40)
[2017-07-18] MEDS ORDERED: Sodium Chloride 0.9% 100 ML IV ONE (22:40)
[2017-07-18] MEDS ORDERED: Iopamidol 755 Mg/ML 100 ML Bottle IVPUSH ONE (22:40)
[2017-07-18] MEDS ORDERED: Acetaminophen/HYDROcodone 325-5 MG Tab PO ONE (23:58)
--- NOTE | 2017-07-19 10:06 | CT ---
CT chest Technique: Multiple axial sections through the chest were obtained. Study performed as a pulmonary angiogram protocol. Intravenous contrast was therefore utilized. Comparison: Previous chest x-ray performed earlier on the same day. Previous chest CT of 03/15/17. Findings: Pulmonary arteries are well-opacified. No filling defects are seen to indicate pulmonary embolism. Mild coronary artery calcification is seen. Mediastinum and hilar regions show no adenopathy or mass. No pericardial thickening is seen. Small portion of the visualized upper abdominal structures are within normal limits. Mild dependent atelectasis is incidentally noted. Lungs otherwise are clear. Impression: 1. No findings of pulmonary embolism. 2. Nothing acute is seen on CT study of the chest. Diagnostic code #1 Agree with preliminary report issued by [facility] ([facility] preliminary report dictated on 07/19/17, 12:30 AM Central Time)
--- NOTE | 2017-07-19 10:07 | CR ---
Chest: Frontal view of the chest was obtained. Comparison: Previous chest x-ray of 07/13/17. Heart size is normal. Tortuous thoracic aorta is seen. Lungs are clear. Bony structures are grossly intact. Impression: 1. Nothing acute is identified on frontal chest x-ray. Diagnostic code #1
== END 2017-07-19 00:15 | disposition home or self-care (01) ==
LOC: JD.ED 19:41
DX: R07.9 Chest pain, unspecified (principal); I48.91 Unspecified atrial fibrillation; I25.2 Old myocardial infarction; E03.9 Hypothyroidism, unspecified; E78.00 Pure hypercholesterolemia, unspecified; Z88.5 Allergy status to narcotic agent; Z88.6 Allergy status to analgesic agent; Z79.82 Long term (current) use of aspirin; Z79.899 Other long term (current) drug therapy; Z98.890 Other specified postprocedural states; Z87.891 Personal history of nicotine dependence
CPT/HCPCS: 36415; 71010; 71275; 80053; 84484; 85025; 85379; 85610; 85730; 93005; 96361; 96374; 99284; A9270; J3010; J7030; J7040; Q9967

== ENCOUNTER 2017-07-20 09:24 | Emergency (ER) | payer BC ==
[2017-07-20] MEDS ORDERED: Sodium Chloride 0.9% 10 ML Syringe FLUSH PRN (09:44)
[2017-07-20] MEDS: Diltiazem 25 MG/5 ML SDV IVPUSH ONE ×2 (09:50→10:00)
[2017-07-20] MEDS ORDERED: Sodium Chloride 0.9% 500 ML IV ONE ×2 (11:15→11:47)
--- NOTE | 2017-07-20 11:40 | EDM.PDOC ---
ED HPI GENERAL MEDICAL PROBLEM - General Chief Complaint: Cardiovascular Problem Stated Complaint: A FIB Time Seen by Provider: 07/20/17 09:35 Source of Information: Reports: Patient, Family, RN Notes Reviewed - History of Present Illness INITIAL COMMENTS - FREE TEXT/NARRATIVE: 62-year-old male comes in with palpitations, rapid heart rate. He does have history of recent onset atrial fib or flutter. He is on Cardizem for that. He apparently has had prior episodes of "going in and out of the atrial fib. Shortly after awakening this morning he became aware of palpitations of his chest and could feel his "pulse pounding up in the forehead". When he checked his blood pressure and heart rate with a blood pressure cuff his heart rate was in the 130s. He had taken his morning meds. He did take an extra dose of his diltiazem 180 mg. This was about one hour ago. The palpitations and rapid heart continuing he felt he better come in to the ED to be evaluated and treated. No chest pain or shortness of breath. He was started on one of the newer blood thinner medications yesterday with anticipation of ablation treatment around 10 days from now. 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: Other (see below) Other Treatments [employer] SALESPERSON: cardizem Right Shoulder Pain Score (Numeric/FACES): 3 - Related Data Allergies Allergy/AdvReac Type Severity Reaction Status Date / Time cephalexin [From Keflex] Allergy Rash Verified 07/20/17 09:30 codeine Allergy Rash Verified 07/20/17 09:30 Home Meds: Home Meds Aspirin [Halfprin] 81 mg PO DAILY 05/08/15 [History] Levothyroxine 75 mcg PO DAILY 05/08/15 [History] Cholecalciferol (Vitamin D3) [Vitamin D3] 1,000 mg PO DAILY 11/25/16 [History] Cyanocobalamin (Vitamin B12) [Vitamin B12] 2,000 mg PO DAILY 11/25/16 [History] Diltiazem HCl [Dilt-Xr] 180 mg PO DAILY 11/25/16 [History] Garlic 1 each PO DAILY 11/25/16 [History] Krill/Om-3/DHA/EPA/Phospho/Ast [Krill Oil 1,000 mg Softgel] 2 tab PO DAILY 11/25 [History] Loratadine [Claritin] 10 mg PO DAILY 11/25/16 [History] Methylphenidate [Ritalin] 10 mg PO ASDIRECTED PRN 11/25/16 [History] Multivitamin [Multivitamins] 1 tab PO DAILY 11/25/16 [History] Policos/Inositol Niac/Garlic [Dzynmemgyog-Mrstkv-Ijwytu] 1 tab PO DAILY [History] Ubidecarenone [COQ-10] 100 mg PO DAILY 11/25/16 [History] Rosuvastatin [Crestor] 5 mg PO BEDTIME #30 tablet 11/26/16 [Rx] Beta-Glucan, (1-3) (1-4) [Beta Glucan] 1 gm PO DAILY 07/13/17 [History] Propafenone HCl [Propafenone HCl ER] 1 cap PO BID 07/13/17 [History] Hydrocodone/Acetaminophen [Barry 5-325 Tablet] 1 each PO Q4H PRN #15 tablet [Rx] Past Medical History Other HEENT History: Lasik Cardiovascular History: Reports: Afib, Aneurysm, High Cholesterol, [place] Other Cardiovascular History: 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 Currently uses 2L oxygen at night for sleep apnea Musculoskeletal History: Reports: Gout, Other (See Below) Other Musculoskeletal History: Low back surgery x2. herniated disc 1986. discs were pinching spinal cord 2016 Neurological History: Reports: None Endocrine/Metabolic History: Reports: Hypothyroidism Other Dermatologic History: Has had a few moles and areas of skin removed in case it is cancerous. 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 - Past Surgical History HEENT Surgical History: Reports: Eye Surgery, Tonsillectomy Cardiovascular Surgical History: Reports: Other (See Below) Other Cardiovascular Surgeries/Procedures: Ablation scheduled in 2016 GI Surgical History: Reports: Hernia Repair/Other Neurological Surgical History: Reports: Lumbar Spine Social & Family History - Family History Neurological: Reports: Alzheimers Disease Other Oncologic Family History: father had cancer - Tobacco Use Smoking Status *Q: Former Smoker Years of Tobacco use: 5 Packs/Tins Daily: 0.1 Used Tobacco, but Quit: Yes Month Tobacco Last Used: 7 years ago - Caffeine Use Caffeine Use: Reports: Coffee, Soda - Alcohol Use Days Per Week of Alcohol Use: 7 Number of Drinks Per Day: 2 Total Drinks Per Week: 14 - Recreational Drug Use Recreational Drug Use: No Drug Use in Last 12 Months: No Other Recreational Drug Type: pot when he was young - Living Situation & Occupation Living situation: Reports: , with Spouse Occupation: Employed ED ROS GENERAL - Review of Systems Review Of Systems: See Below Constitutional: Denies: Fever, Chills, Diaphoresis HEENT: Denies: Throat Pain Respiratory: Denies: Shortness of Breath, Wheezing, Pleuritic Chest Pain Cardiovascular: Reports: Palpitations. Denies: Chest Pain GI/Abdominal: Denies: Abdominal Pain, Nausea, Vomiting Musculoskeletal: Denies: Neck Pain, Shoulder Pain, Back Pain, Leg Pain Skin: Reports: No Symptoms Neurological: Reports: No Symptoms ED EXAM, GENERAL - Physical Exam Exam: See Below General Appearance: Alert, No Apparent Distress Throat/Mouth: Normal Inspection, Normal Oropharynx Head: Atraumatic. No: Facial Swelling Neck: Supple, Full Range of Motion, Other Respiratory/Chest: No Respiratory Distress (No JVD), Lungs Clear, Normal Breath Sounds Cardiovascular: Tachycardia, Irregularly Irregular GI/Abdominal: Soft, Non-Tender Extremities: Normal Inspection. No: Pedal Edema, Leg Pain Neurological: Alert, Oriented, No Motor/Sensory Deficits Skin Exam: Warm, Dry, Normal Color EKG INTERPRETATION EKG Date: 07/20/17 Rhythm: A-Flutter Rate (Beats/Min): 142 Justin: Normal P-Wave: Present QRS: Other (Mild conduction delay QRS) ST-T: Other (None specific T-wave inversion inferior leads) Course - Vital Signs Last Recorded V/S: Last Vital Signs Temp 97.4 F 07/20/17 09:31 Pulse 142 H 07/20/17 09:31 Resp 22 H 07/20/17 09:31 BP 108/79 07/20/17 09:31 Pulse Ox 93 L 07/20/17 09:31 - Orders/Labs/Meds Orders: Active Orders 24 hr Category Date Time Status EKG 12 Lead [EKG Documentation Completion] [RC] STAT Care 07/20/17 09:30 Active Peripheral IV Care [RC] . DIRECTED Care 07/20/17 09:44 Active Sodium Chloride 0.9% [Saline Flush] Med 07/20/17 09:44 Active 10 ml FLUSH ASDIRECTED PRN Peripheral IV Insertion Adult [OM.PC] Stat Oth 07/20/17 09:43 Ordered Medication Orders Sodium Chloride (Saline Flush) 10 ml FLUSH ASDIRECTED PRN PRN Reason: Keep Vein Open Last Admin: 07/20/17 09:35 Dose: 10 ml Labs: Laboratory Tests 07/20/17 07/20/17 Range/Units 09:35 09:35 WBC 9.27 H (4.23-9.07) K/mm3 RBC 5.49 (4.63-6.08) M/mm3 Hgb 16.0 (13.7-17.5) gm/L Hct 47.5 (40.1-51.0) % MCV 86.5 (79.0-92.2) fl MCH 29.1 (25.7-32.2) pg MCHC 33.7 (32.2-35.5) g/dl RDW Std Deviation 43.3 (35.1-43.9) fL Plt Count 233 (163-337) K/mm3 MPV 11.0 (9.4-12.3) fl Neut % (Auto) 69.3 H (34.0-67.9) % Lymph % (Auto) 20.8 L (21.8-53.1) % [place] % (Auto) 6.9 (5.3-12.2) % Eos % (Auto) 2.3 (0.8-7.0) Baso % (Auto) 0.4 (0.1-1.2) % Neut # (Auto) 6.42 H (1.78-5.38) K/mm3 Lymph # (Auto) 1.93 (1.32-3.57) K/mm3 [place] # (Auto) 0.64 (0.30-0.82) K/mm3 Eos # (Auto) 0.21 (0.04-0.54) K/mm3 Baso # (Auto) 0.04 (0.01-0.08) K/mm3 Sodium 137 (136-145) mEq/L Potassium 4.1 (3.5-5.1) mEq/L Chloride 104 (98-107) mEq/L Carbon Dioxide 23 (21-32) mEq/L Anion Gap 14.1 (5-15) BUN 14 (7-18) mg/dL Creatinine 1.2 (0.7-1.3) mg/dL Est Cr Clr Drug Dosing 67.11 mL/min Estimated GFR (MDRD) > 60 (>60) mL/min BUN/Creatinine Ratio 11.7 L (14-18) Glucose 163 H (80-115) mg/dL Calcium 8.8 (8.5-10.1) mg/dL Total Bilirubin 0.6 (0.2-1.0) mg/dL AST 25 (15-37) U/L ALT 31 (16-63) U/L Alkaline Phosphatase 77 (46-116) U/L Total Protein 7.1 (6.4-8.2) g/dl Albumin 3.4 (3.4-5.0) g/dl Globulin 3.7 gm/dL Albumin/Globulin Ratio 0.9 L (1-2) Meds: Medications Generic Name Dose Route Start Last Admin Trade Name Freq PRN Reason Stop Dose Admin Sodium Chloride 10 ml 07/20/17 09:44 07/20/17 09:35 Saline Flush FLUSH 10 ml ASDIRECTED PRN Administration Keep Vein Open Discontinued Medications Generic Name Dose Route Start Last Admin Trade Name Freq PRN Reason Stop Dose Admin Diltiazem HCl 20 mg 07/20/17 09:44 07/20/17 10:00 Diltiazem IVPUSH 07/20/17 09:45 10 mg ONETIME ONE Administration Sodium Chloride 500 mls @ 999 mls/hr 07/20/17 11:15 07/20/17 11:23 Normal Saline IV 07/20/17 11:45 999 mls/hr .BOLUS ONE Administration Sodium Chloride 500 mls @ 999 mls/hr 07/20/17 11:47 07/20/17 12:06 Normal Saline IV 07/20/17 12:17 999 mls/hr .BOLUS ONE Administration - Re-Assessments/Exams Free Text/Narrative Re-Assessment/Exam: 07/20/17 11:00. We did give diltiazem 20 mg IV. With that his rate did slow down into the 80s, 90s up to around 100. However when I did go and visit with him planning for discharge his most recent blood pressure drop down to about 97/ 60. therefore We are going to go ahead and give IV fluid prior to discharge. 07/20/17 12:37. Have given a full liter of fluid, blood pressures been running in the low 100s, upper 90s. He does feel up to going home at this time. Rate Control tremendously better, rate running in the 80s at this time. Discharge instructions as documented Departure - Departure Time of Disposition: 12:38 Disposition: Home, Self-Care 01 Condition: Fair Clinical Impression: Atrial fibrillation with rapid ventricular response Referrals: Adela Parra PA-C [Primary Care Provider] - Forms: ED Department Discharge Additional Instructions: Drink plenty of water to maintain hydration, continue current medications as prescribed, diltiazem 60 mg short acting dosage if needed for heart rate greater than 110 on 2 separate checks at least 5 or 10 minutes apart, follow-up with your regular medical provider as needed, ablation therapy as scheduled. Return to ED as needed. - My Orders Last 24 Hours: My Active Orders 07/20/17 09:30 EKG 12 Lead [EKG Documentation Completion] [RC] STAT 07/20/17 09:43 Peripheral IV Insertion Adult [OM.PC] Stat 07/20/17 09:44 Peripheral IV Care [RC] . DIRECTED Sodium Chloride 0.9% [Saline Flush] 10 ml FLUSH ASDIRECTED PRN - Assessment/Plan Last 24 Hours: My Active Orders 07/20/17 09:30 EKG 12 Lead [EKG Documentation Completion] [RC] STAT 07/20/17 09:43 Peripheral IV Insertion Adult [OM.PC] Stat 07/20/17 09:44 Peripheral IV Care [RC] . DIRECTED Sodium Chloride 0.9% [Saline Flush] 10 ml FLUSH ASDIRECTED PRN
[2017-07-20 13:32] VITALS: BP 98/71
== END 2017-07-20 13:00 | disposition home or self-care (01) ==
LOC: JD.ED 09:24
DX: I48.91 Unspecified atrial fibrillation (principal); E78.00 Pure hypercholesterolemia, unspecified; I25.2 Old myocardial infarction; E03.9 Hypothyroidism, unspecified; Z88.5 Allergy status to narcotic agent; Z88.6 Allergy status to analgesic agent; Z79.82 Long term (current) use of aspirin; Z79.899 Other long term (current) drug therapy; Z98.890 Other specified postprocedural states; Z87.891 Personal history of nicotine dependence
CPT/HCPCS: 36415; 80053; 85025; 93005; 96361; 96374; 99285; J3490; J7040; J7050; 99284

== ENCOUNTER 2017-07-26 01:35 | Emergency (ER) | payer BC ==
[2017-07-26 01:43] VITALS: BP 129/96
[2017-07-26] MEDS ORDERED: Adenosine 12 MG/4 ML SDV IVPUSH ONE (01:46)
[2017-07-26] MEDS ORDERED: Adenosine 12 MG/4 ML SDV ONE (01:51)
[2017-07-26] MEDS ORDERED: Orphenadrine 100 MG Tab.ER PO STA (03:48)
--- NOTE | 2017-07-26 03:55 | EDM.PDOC ---
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 The patient is scheduled for a cardiac ablation on 08/05/[address] Espinosa. The patient is not able to tell when he is atrial fibrillation, therefore he checks his pulse with a finger monitor several times a day. He states that his heart rate was in the 130s tonight. As usual, the patient is asymptomatic, except for feeling a little warm and a little sweaty. The patient is also complaining of right parascapular muscle spasm for the past several weeks. Right Shoulder Pain Score (Numeric/FACES): 5 - Related Data Allergies Allergy/AdvReac Type Severity Reaction Status Date / Time cephalexin [From Keflex] Allergy Rash Verified 07/26/17 01:40 codeine Allergy Rash Verified 07/26/17 01:40 Home Meds: Home Meds Aspirin [Halfprin] 81 mg PO DAILY 05/08/15 [History] Levothyroxine 75 mcg PO DAILY 05/08/15 [History] Cholecalciferol (Vitamin D3) [Vitamin D3] 1,000 mg PO DAILY 11/25/16 [History] Cyanocobalamin (Vitamin B12) [Vitamin B12] 2,000 mg PO DAILY 11/25/16 [History] Diltiazem HCl [Dilt-Xr] 180 mg PO DAILY 11/25/16 [History] Garlic 1 each PO DAILY 11/25/16 [History] Krill/Om-3/DHA/EPA/Phospho/Ast [Krill Oil 1,000 mg Softgel] 2 tab PO DAILY 11/25 [History] Loratadine [Claritin] 10 mg PO DAILY 11/25/16 [History] Methylphenidate [Ritalin] 10 mg PO ASDIRECTED PRN 11/25/16 [History] Multivitamin [Multivitamins] 1 tab PO DAILY 11/25/16 [History] Policos/Inositol Niac/Garlic [Fqpdbjdjung-Fcgjlx-Qffkph] 1 tab PO DAILY [History] Ubidecarenone [COQ-10] 100 mg PO DAILY 11/25/16 [History] Rosuvastatin [Crestor] 5 mg PO BEDTIME #30 tablet 11/26/16 [Rx] Beta-Glucan, (1-3) (1-4) [Beta Glucan] 1 gm PO DAILY 07/13/17 [History] Propafenone HCl [Propafenone HCl ER] 1 cap PO BID 07/13/17 [History] Hydrocodone/Acetaminophen [Bivalve 5-325 Tablet] 1 each PO Q4H PRN #15 tablet [Rx] Orphenadrine [Norflex] 1 tab PO Q12H #20 tab.er 07/26/17 [Rx] Past Medical History Cardiovascular History: Reports: Afib, Aneurysm (AAA), High Cholesterol Respiratory History: Reports: Sleep Apnea (Noncompliant with CPAP. Currently uses 2L oxygen at night.) Neurological History: Reports: Other (See Below) (Narcolepsy) Endocrine/Metabolic History: Reports: Hypothyroidism, Obesity/BMI 30+ - Past Surgical History HEENT Surgical History: Reports: LASIK, Oral Surgery ([place] teeth extraction), Tonsillectomy GI Surgical History: Reports: Appendectomy, Hernia Repair/Other (x 3) Neurological Surgical History: Reports: Lumbar Spine (microdiscectomy, laminectomy) Musculoskeletal Surgical History: Reports: Amputation (left fingers), ORIF ( left ankle) Social & Family History - Family History Neurological: Reports: Alzheimers Disease Other Oncologic Family History: father had cancer - Tobacco Use Smoking Status *Q: Former Smoker Years of Tobacco use: 19 Packs/Tins Daily: 0.5 Month Tobacco Last Used: Quit 2007 Second Hand Smoke Exposure: Yes 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 - Caffeine Use Caffeine Use: Reports: Coffee, Soda - Alcohol Use Alcohol Use History: Yes Days Per Week of Alcohol Use: 7 Number of Drinks Per Day: 2 Total Drinks Per Week: 14 Alcohol Use Frequency: Daily - Recreational Drug Use Recreational Drug Use: No Other Recreational Drug Type: pot when he was young - Living Situation & Occupation Living situation: Reports: , with Spouse Occupation: Employed ([employer]) ED [facility] GENERAL - Review of Systems Review Of Systems: See Below Constitutional: Reports: No Symptoms HEENT: Reports: No Symptoms Respiratory: Reports: Cough (x 2 weeks) Cardiovascular: Reports: No Symptoms Endocrine: Reports: No Symptoms GI/Abdominal: Reports: No Symptoms : Reports: No Symptoms Musculoskeletal: Reports: No Symptoms Skin: Reports: No Symptoms Neurological: Reports: No Symptoms Psychiatric: Reports: No Symptoms Hematologic/Lymphatic: Reports: No Symptoms Immunologic: Reports: No Symptoms ED EXAM, GENERAL - Physical Exam Exam: See Below Exam Limited By: No Limitations General Appearance: Alert, WD/WN, No Apparent Distress Eye Exam: Bilateral Eye: Normal Inspection Ears: Normal External Exam, Hearing Grossly Normal Nose: Normal Inspection, No Blood Throat/Mouth: Normal Inspection, Normal Lips, Normal Voice, No Airway Compromise Head: Atraumatic, Normocephalic Neck: Normal Inspection, Full Range of Motion Respiratory/Chest: No Respiratory Distress, Lungs Clear, Normal Breath Sounds, No Accessory Muscle Use Cardiovascular: Normal Peripheral Pulses, Regular Rate, Rhythm, No Gallop, No JVD, No Murmur, No Rub, Tachycardia Peripheral Pulses: 4+: Radial (L), Radial (R) GI/Abdominal: Normal Bowel Sounds, Soft, Non-Tender, No Organomegaly, No Distention, No Abnormal Bruit, No Mass, Other (Obese) (Male) Exam: Deferred Rectal (Males) Exam: Deferred Back Exam: Normal Inspection, Full Range of Motion, NT Extremities: Normal Range of Motion, No Pedal Edema, Normal Capillary Refill, Other (Numerous left fingers partially agitated) Neurological: Alert, Oriented, Normal Cognition, No Motor/Sensory Deficits Psychiatric: Normal Affect Skin Exam: Warm, Intact, Normal Color, No Rash, Diaphoretic (mild) EKG INTERPRETATION EKG Date: 07/26/17 Time: 01:39 Rhythm: A-Flutter Rate (Beats/Min): 127 [place]: Other (unable to determine) P-Wave: Present QRS: RBBB ST-T: Normal QT: Prolonged (QTc 550 ms) Comparison: No Change (07/20/2017) Course - Vital Signs Last Recorded V/S: Last Vital Signs Temp 36.1 C 07/26/17 01:41 Pulse 128 H 07/26/17 01:41 Resp 15 07/26/17 01:41 BP 129/96 H 07/26/17 01:41 Pulse Ox 95 07/26/17 01:56 - Orders/Labs/Meds Orders: Active Orders 24 hr Category Date Time Status EKG 12 Lead [EK] Stat Ther 07/26/17 01:46 Ordered EKG 12 Lead [EK] Stat Ther 07/26/17 01:47 Ordered Meds: Medications Discontinued Medications Generic Name Dose Route Start Last Admin Trade Name Donte PRN Reason Stop Dose Admin Adenosine 12 mg 07/26/17 01:46 Adenocard IVPUSH 07/26/17 01:47 NOW ONE Adenosine Confirm 07/26/17 01:51 07/26/17 04:10 Adenocard Administered 07/26/17 01:52 Not Given Dose 12 mg .ROUTE .STK-MED ONE Orphenadrine Citrate 100 mg 07/26/17 03:48 07/26/17 04:01 Norflex PO 07/26/17 03:49 100 mg ONETIME STA Administration - Re-Assessments/Exams Free Text/Narrative Re-Assessment/Exam: 07/26/17 03:48 When the patient initially arrived, his heart rate was 127 and regular. His ECG appeared to be atrial flutter with 2:1 conduction. The plan was to give him adenosine to determine the underlying rhythm, however, before that could be done , the patient converted to an irregularly irregular rhythm. A repeat ECG finds the patient in atrial fibrillation at 81 BPM. The patient is already on Cardizem, and already on Eliquis. As the patient is hemodynamically stable, there is no medical indication for emergency cardioversion. Further, the patient is scheduled for an ablation on 08/15/2017. No further treatment of his atrial fibrillation is required tonight. I offered to check some blood work, but the patient declined, which I agree with, as he has had similar workups numerous times the past, without finding any significant abnormalities. The patient is also complaining of right parascapular muscle spasm. I was able to palpate the spasmed muscle. He states that he is currently being treated with Flexeril and Bivalve per his PCP. I am recommending that he discontinue the Bivalve, as one of the side effects of opioids is muscle spasm, and I am recommending that we switch him from Flexeril to Norflex, which is more effective as a muscle relaxant, and does not cause drowsiness. Departure - Departure Time of Disposition: 03:51 Disposition: Home, Self-Care 01 Condition: Fair Clinical Impression: Atrial fibrillation and flutter, Trapezius muscle spasm Prescriptions: Orphenadrine [Norflex] 1 tab PO Q12H #20 tab.er Instructions: Muscle Cramps and Spasms, [id number], Atrial Fibrillation, Easy -to-Read Referrals: Samantha Barnes PA-C [Primary Care Provider] - Pérez Espinosa [Ordering Only Provider] - Forms: ED Department Discharge Additional Instructions: You were seen in the emergency room for an elevated heart rate. Your initial ECG showed atrial flutter at 127 bpm, however, you converted to atrial fibrillation at 81 bpm without any treatment. As your heart rate is below 100, and you are already anticoagulated, no further treatment is required. There was no medical indication to try to intentionally cardiovert you. Blood work was offered, but declined. You also have a muscle spasm by your right shoulder blade. You have been started on the muscle relaxant Norflex. Take one tablet every 12 hours, as prescribed. If you take Norflex, DO NOT also take Flexeril (cyclobenzaprine). We recommend that you NOT take Bivalve for your muscle spasm, as one of the side effects of opioids is itself muscle spasm. We recommend that you notify the office of Dr. Espinosa of your ER visit. If any other problems, please do not hesitate to return to the ER. - My Orders Last 24 Hours: My Active Orders 07/26/17 01:46 EKG 12 Lead [EK] Stat 07/26/17 01:47 EKG 12 Lead [EK] Stat - Assessment/Plan Last 24 Hours: My Active Orders 07/26/17 01:46 EKG 12 Lead [EK] Stat 07/26/17 01:47 EKG 12 Lead [EK] Stat
== END 2017-07-26 04:07 | disposition home or self-care (01) ==
LOC: JD.ED 01:35
DX: I48.91 Unspecified atrial fibrillation (principal); I48.92 Unspecified atrial flutter; M62.838 Other muscle spasm; E66.9 Obesity, unspecified; E03.9 Hypothyroidism, unspecified; Z87.891 Personal history of nicotine dependence; Z88.6 Allergy status to analgesic agent; Z88.5 Allergy status to narcotic agent; Z79.82 Long term (current) use of aspirin; Z79.899 Other long term (current) drug therapy; Z68.34 Body mass index [BMI] 34.0-34.9, adult
CPT/HCPCS: 93005; 99285; A9270; 99283

== ENCOUNTER 2017-09-28 20:05 | Emergency (ER) | payer BC ==
[2017-09-28 20:13] VITALS: BP 114/76
[2017-09-28] MEDS ORDERED: Diltiazem 25 MG/5 ML SDV IVPUSH ONE (20:34)
[2017-09-28] MEDS ORDERED: Sodium Chloride 0.9% 10 ML Syringe FLUSH PRN (20:34)
[2017-09-28] MEDS ORDERED: Diltiazem 125 MG in Sodium Chloride 0.9% 100 ML IV SCH (20:45)
[2017-09-28] MEDS ORDERED: Magnesium Sulfate/Water 2 GM in Premix Bag 1 BAG IV ONE (20:55)
[2017-09-28] MEDS ORDERED: Sodium Chloride 0.9% 1,000 ML IV SCH (21:00)
--- NOTE | 2017-09-28 21:04 | EDM.PDOC ---
ED HPI GENERAL MEDICAL PROBLEM - General Chief Complaint: Cardiovascular Problem Stated Complaint: RAPID HEART BEATS Time Seen by Provider: 09/28/17 20:23 Source of Information: Reports: Patient History Limitations: Reports: No Limitations - History of Present Illness INITIAL COMMENTS - FREE TEXT/NARRATIVE: Patient is 62-year-old male who presents to the ED complaining of A. fib with RVR. Patient states at approximately 3:00 this morning he awoke with atrial fibrillation. Thus took 60 mg of Cardizem SA at 4:00, 180 mg of long-acting cardizem at 6:00, and another 180 mg of Cardizem long-acting at 9:00. States throughout the course today he was feeling okay up until approximately 1600 this afternoon when he felt like he had a fast heart rate. Checked it with his SPO2 monitor which indicated 153. At 1700 hrs. took another 60 mg of short acting Cardizem and 180 mg of long-acting Cardizem. Presents to the ED with a heart rate 150s. States he became mildly short of breath with exertion and clammy. Upon admission to the ED denies any chest pain, shortness of breath at rest, nausea/vomiting, diaphoresis, back pain, dizziness, or any stroke like symptoms. Patient states approximately 3 wks ago underwent cardiac ablation by Dr. Jesús ALBRIGHT at [facility]. States he has been on Cardizem 180 mg long-acting every day and rhythmol 225mg twice a day In addition he is taking eliquis 5mg twice a day. States he has had no episodes of atrial fibrillation since the cardiac ablation. Prior to the cardiac ablation he was on Cardizem 180 mg long-acting 3 times a day with intermittent use with short acting Cardizem 60 mg. He was also taking Rythmol 225 mg twice a day as well. He does have a history of hypothyroidism and states they recently increased his levothyroxine from 75 g every day to 125 g every day. - Related Data Allergies Allergy/AdvReac Type Severity Reaction Status Date / Time cephalexin [From Keflex] Allergy Rash Verified 09/28/17 20:13 codeine Allergy Rash Verified 09/28/17 20:13 Home Meds: Home Meds Aspirin [Halfprin] 81 mg PO DAILY 05/08/15 [History] Levothyroxine 125 mcg PO DAILY 05/08/15 [History] Cholecalciferol (Vitamin D3) [Vitamin D3] 1,000 mg PO DAILY 11/25/16 [History] Cyanocobalamin (Vitamin B12) [Vitamin B12] 2,000 mg PO DAILY 11/25/16 [History] Diltiazem HCl [Dilt-Xr] 180 mg PO DAILY 11/25/16 [History] Garlic 1 each PO DAILY 11/25/16 [History] Krill/Om-3/DHA/EPA/Phospho/Ast [Krill Oil 1,000 mg Softgel] 2 tab PO DAILY 11/25 [History] Loratadine [Claritin] 10 mg PO DAILY 11/25/16 [History] Multivitamin [Multivitamins] 1 tab PO DAILY 11/25/16 [History] Policos/Inositol Niac/Garlic [Nzfgorqezkk-Obhujm-Yjhtaf] 1 tab PO DAILY [History] Ubidecarenone [COQ-10] 100 mg PO DAILY 11/25/16 [History] Rosuvastatin [Crestor] 5 mg PO BEDTIME #30 tablet 11/26/16 [Rx] Beta-Glucan, (1-3) (1-4) [Beta Glucan] 1 gm PO DAILY 07/13/17 [History] Propafenone HCl [Propafenone HCl ER] 1 cap PO BID 07/13/17 [History] Apixaban [Eliquis] 5 mg PO BID 09/28/17 [History] Diltiazem HCl [Cardizem] 60 mg PO DAILY 09/28/17 [History] Past Medical History Other HEENT History: [place] Cardiovascular History: Reports: Afib, Aneurysm, High Cholesterol Other Cardiovascular History: 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 Currently uses 2L oxygen at night for sleep apnea Musculoskeletal History: Reports: Gout, Other (See Below) Other Musculoskeletal History: Low back surgery x2. herniated disc 1986. discs were pinching spinal cord 2016 Neurological History: Reports: Other (See Below) Endocrine/Metabolic History: Reports: Hypothyroidism, Obesity/BMI 30+ Other Dermatologic History: Has had a few moles and areas of skin removed in case it is cancerous. 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 - Past Surgical History HEENT Surgical History: Reports: LASIK, Oral Surgery, Tonsillectomy Cardiovascular Surgical History: Reports: Other (See Below) Other Cardiovascular Surgeries/Procedures: ablation GI Surgical History: Reports: Appendectomy, Hernia Repair/Other Neurological Surgical History: Reports: Lumbar Spine Musculoskeletal Surgical History: Reports: Amputation, ORIF Social & Family History - Family History Neurological: Reports: Alzheimers Disease Other Oncologic Family History: father had cancer - Tobacco Use Smoking Status *Q: Former Smoker Years of Tobacco use: 19 Packs/Tins Daily: 0.5 Used Tobacco, but Quit: Yes Month Tobacco Last Used: 2009 Second Hand Smoke Exposure: Yes - Caffeine Use Caffeine Use: Reports: Coffee, Soda - Alcohol Use Days Per Week of Alcohol Use: 7 Number of Drinks Per Day: 2 Total Drinks Per Week: 14 - Recreational Drug Use Recreational Drug Use: No Drug Use in Last 12 Months: No Other Recreational Drug Type: pot when he was young - Living Situation & Occupation Living situation: Reports: , with Spouse Occupation: Employed ([email or web address]) ED ROS GENERAL - Review of Systems Review Of Systems: See Below Constitutional: Reports: No Symptoms Respiratory: Reports: No Symptoms Cardiovascular: Reports: No Symptoms Musculoskeletal: Reports: No Symptoms Neurological: Denies: Dizziness, Headache ED EXAM, GENERAL - Physical Exam Exam: See Below Exam Limited By: No Limitations General Appearance: Alert, WD/WN, No Apparent Distress Ears: Hearing Grossly Normal Nose: Normal Inspection Throat/Mouth: Normal Voice, No Airway Compromise Neck: Normal Inspection, Supple Respiratory/Chest: No Respiratory Distress, Lungs Clear, Normal Breath Sounds, No Accessory Muscle Use Cardiovascular: Normal Peripheral Pulses, Tachycardia, Systolic Murmur, Irregularly Irregular Peripheral Pulses: 3+: Radial (L), Radial (R) Extremities: Normal Inspection, Normal Range of Motion, Non-Tender, No Pedal Edema, Normal Capillary Refill Neurological: Alert, Oriented, CN II-XII Intact, Normal Cognition, No Motor/ Sensory Deficits Psychiatric: Normal Affect, Normal Mood Skin Exam: Warm, Dry, Intact, Normal Color Course - Vital Signs Last Recorded V/S: Last Vital Signs Temp 98.1 F 09/28/17 20:09 Pulse 150 H 09/28/17 20:09 Resp 16 09/28/17 20:09 BP 114/76 09/28/17 20:09 Pulse Ox 93 L 09/28/17 20:09 - Orders/Labs/Meds Orders: Active Orders 24 hr Category Date Time Status EKG Documentation Completion [RC] STAT Care 09/28/17 20:25 Active EKG Documentation Completion [RC] STAT Care 09/28/17 21:30 Active Peripheral IV Care [RC] . DIRECTED Care 09/28/17 20:34 Active Chest 1V Frontal [CR] Stat Exams 09/28/17 20:34 Taken Peripheral IV Insertion Adult [OM.PC] Stat Oth 09/28/17 20:33 Ordered Labs: Laboratory Tests 09/28/17 09/28/17 09/28/17 Range/Units 20:15 20:15 20:15 WBC 10.08 H (4.23-9.07) K/mm3 RBC 5.13 (4.63-6.08) M/mm3 Hgb 14.9 (13.7-17.5) gm/L Hct 43.3 (40.1-51.0) % MCV 84.4 (79.0-92.2) fl MCH 29.0 (25.7-32.2) pg MCHC 34.4 (32.2-35.5) g/dl RDW Std Deviation 40.5 (35.1-43.9) fL Plt Count 319 (163-337) K/mm3 MPV 10.5 (9.4-12.3) fl Neut % (Auto) 54.3 (34.0-67.9) % Lymph % (Auto) 29.9 (21.8-53.1) % Clay % (Auto) 8.5 (5.3-12.2) % Eos % (Auto) 6.3 (0.8-7.0) Baso % (Auto) 0.6 (0.1-1.2) % Neut # (Auto) 5.48 H (1.78-5.38) K/mm3 Lymph # (Auto) 3.01 (1.32-3.57) K/mm3 Clay # (Auto) 0.86 H (0.30-0.82) K/mm3 Eos # (Auto) 0.63 H (0.04-0.54) K/mm3 Baso # (Auto) 0.06 (0.01-0.08) K/mm3 PT 11.3 (8.0-13.0) SECONDS INR 1.03 APTT 30 (22-36) SECONDS Sodium 142 (136-145) mEq/L Potassium 3.6 (3.5-5.1) mEq/L Chloride 105 (98-107) mEq/L Carbon Dioxide 27 (21-32) mEq/L Anion Gap 13.6 (5-15) BUN 21 H (7-18) mg/dL Creatinine 1.5 H (0.7-1.3) mg/dL Est Cr Clr Drug Dosing 52.05 mL/min Estimated GFR (MDRD) 47 (>60) mL/min BUN/Creatinine Ratio 14.0 (14-18) Glucose 154 H (80-115) mg/dL Calcium 8.9 (8.5-10.1) mg/dL Magnesium (1.8-2.4) mg/dl Total Bilirubin 0.3 (0.2-1.0) mg/dL AST 22 (15-37) U/L ALT 36 (16-63) U/L Alkaline Phosphatase 89 (46-116) U/L Troponin I < 0.017 (0.00-0.056) ng/mL Total Protein 6.7 (6.4-8.2) g/dl Albumin 3.4 (3.4-5.0) g/dl Globulin 3.3 gm/dL Albumin/Globulin Ratio 1.0 (1-2) TSH 3rd Generation 8.005 H (0.358-3.74) uIU/mL 09/28/17 Range/Units 20:15 WBC (4.23-9.07) K/mm3 RBC (4.63-6.08) M/mm3 Hgb (13.7-17.5) gm/L Hct (40.1-51.0) % MCV (79.0-92.2) fl MCH (25.7-32.2) pg MCHC (32.2-35.5) g/dl RDW Std Deviation (35.1-43.9) fL Plt Count (163-337) K/mm3 MPV (9.4-12.3) fl Neut % (Auto) (34.0-67.9) % Lymph % (Auto) (21.8-53.1) % Clay % (Auto) (5.3-12.2) % Eos % (Auto) (0.8-7.0) Baso % (Auto) (0.1-1.2) % Neut # (Auto) (1.78-5.38) K/mm3 Lymph # (Auto) (1.32-3.57) K/mm3 Clay # (Auto) (0.30-0.82) K/mm3 Eos # (Auto) (0.04-0.54) K/mm3 Baso # (Auto) (0.01-0.08) K/mm3 PT (8.0-13.0) SECONDS INR APTT (22-36) SECONDS Sodium (136-145) mEq/L Potassium (3.5-5.1) mEq/L Chloride (98-107) mEq/L Carbon Dioxide (21-32) mEq/L Anion Gap (5-15) BUN (7-18) mg/dL Creatinine (0.7-1.3) mg/dL Est Cr Clr Drug Dosing mL/min Estimated GFR (MDRD) (>60) mL/min BUN/Creatinine Ratio (14-18) Glucose (80-115) mg/dL Calcium (8.5-10.1) mg/dL Magnesium 1.9 (1.8-2.4) mg/dl Total Bilirubin (0.2-1.0) mg/dL AST (15-37) U/L ALT (16-63) U/L Alkaline Phosphatase (46-116) U/L Troponin I (0.00-0.056) ng/mL Total Protein (6.4-8.2) g/dl Albumin (3.4-5.0) g/dl Globulin gm/dL Albumin/Globulin Ratio (1-2) TSH 3rd Generation (0.358-3.74) uIU/mL Meds: Medications Discontinued Medications Generic Name Dose Route Start Last Admin Trade Name Freq PRN Reason Stop Dose Admin Diltiazem HCl 20 mg 09/28/17 20:34 09/28/17 21:05 Diltiazem IVPUSH 09/28/17 20:35 20 mg ONETIME ONE Administration Diltiazem HCl 125 mg/ Sodium 125 mls @ 5 mls/hr 09/28/17 20:45 Chloride IV TITRATE JOHNNIE Protocol 5 MG/HR Magnesium Sulfate 2 gm/ Premix 50 mls @ 25 mls/hr 09/28/17 20:55 09/28/17 21: 00 IV 09/28/17 22:54 25 mls/hr ONETIME ONE Administration Sodium Chloride 1,000 mls @ 100 mls/hr 09/28/17 21:00 09/28/17 21:01 Normal Saline IV 100 mls/hr ASDIRECTED JOHNNIE Administration Sodium Chloride 10 ml 09/28/17 20:34 09/28/17 21:06 Saline Flush FLUSH 10 ml ASDIRECTED PRN Administration Keep Vein Open - Re-Assessments/Exams Free Text/Narrative Re-Assessment/Exam: Patient remains in atrial fibrillation at a variable heart rate of 124. Blood pressure is normotensive. Patient has no chest pain or or shortness of breath on examination. EKG A. fib/A flutter at a rate of 124 with incomplete right bundle branch block. No acute ST changes noted. IV established with diltiazem 20 mg IV bolus, 2 g of magnesium IV, and normal saline 100 mils per hour. Cardizem drip has been ordered as well to be started if has not converted. Initial labs and studies include CBC, chem 14, coag studies, troponin, TSH, and chest x-ray. 09/28/17 21:26 Assessment, patients heart rate 100 appears to be regular. EKG ordered. BP 79/systolic, 250ml bolus started. Patient is receiving mag 2 grams IV. EKG revealed atrial flutter with a predominant 41 AV block. Incomplete right bundle branch block. Q waves in leads 3 and aVF. Labs reviewed: White blood cell count 10.08, platelet count 319, hemoglobin 14.9 , sodium 142, potassium 3.6, AG 13.6, creatinine 1.5, glucose 154, troponin less than 0.017, and TSH 8.005. Per patient they adjusted his levothyroxine from 75 g to 125g yesterday. 2229 Discussed labs and studies with the patient. He is requesting to be discharged home once able. His plan is to follow-up with Dr. Espinosa this week. He will call and make an appointment to be seen this coming Saturday. He is currently asymptomatic. 09/28/17 23:15 Reassessment, patient walked to the bathroom with no issues. Denies any dizziness, chest pain, shortness of breath. Blood pressure was 112/ 60. He is asymptomatic. We'll discharge home with instructions as documented. Plan is increases Cardizem long-acting 180 mg once a day to twice a day. He'll continue on all his other home medications as prescribed. Contact Dr. Espinosa's Saturday for this appointment. He'll return if he has any new or worsening symptoms. Departure - Departure Time of Disposition: 23:16 Disposition: Home, Self-Care 01 Clinical Impression: Atrial fibrillation with rapid ventricular response, Atrial flutter by electrocardiogram Instructions: Atrial Fibrillation, [id number] Referrals: Samantha Barnes PA-C [Primary Care Provider] - Pérez Espinosa [Ordering Only Provider] - Forms: ED Department Discharge Additional Instructions: As discussed will increase your Cardizem LA 180 mg from once a day to twice a day. Continue taking all other home medications as prescribed. Call Dr. Espinosa' s office Saturday for earliest appointment. Return to the ED if you develop any new or worsening symptoms. - My Orders Last 24 Hours: My Active Orders 09/28/17 20:25 EKG Documentation Completion [RC] STAT 09/28/17 20:33 Peripheral IV Insertion Adult [OM.PC] Stat 09/28/17 20:34 Peripheral IV Care [RC] . DIRECTED Chest 1V Frontal [CR] Stat 09/28/17 21:30 EKG Documentation Completion [RC] STAT - Assessment/Plan Last 24 Hours: My Active Orders 09/28/17 20:25 EKG Documentation Completion [RC] STAT 09/28/17 20:33 Peripheral IV Insertion Adult [OM.PC] Stat 09/28/17 20:34 Peripheral IV Care [RC] . DIRECTED Chest 1V Frontal [CR] Stat 09/28/17 21:30 EKG Documentation Completion [RC] STAT
--- NOTE | 2017-10-01 11:41 | CR ---
Chest: Portable view of the chest was obtained. Comparison: Prior chest x-ray of 07/18/17. Heart size is normal. Mild tortuosity of the thoracic aorta is seen. Lungs are clear. Bony structures are grossly intact. Impression: 1. Nothing acute is identified on portable chest x-ray. Diagnostic code #1
== END 2017-09-28 23:30 | disposition home or self-care (01) ==
LOC: JD.ED 20:05
DX: I48.91 Unspecified atrial fibrillation (principal); I48.92 Unspecified atrial flutter; E78.00 Pure hypercholesterolemia, unspecified; Z88.8 Allergy status to other drugs, medicaments and biological substances; Z88.5 Allergy status to narcotic agent; Z79.899 Other long term (current) drug therapy; Z79.82 Long term (current) use of aspirin; Z87.891 Personal history of nicotine dependence
CPT/HCPCS: 36415; 71010; 80053; 83735; 84443; 84484; 85025; 85610; 85730; 93005; 96365; 96366; 96375; 99285; J3490; J7040; J7050; 93010; 99284-25; J3475

== ENCOUNTER 2019-01-23 08:47 | Emergency (ER) | payer BC ==
[2019-01-23 09:02] VITALS: BP 136/82
[2019-01-23] MEDS ORDERED: traMADol 50 MG Tab PO ONE (09:23)
--- NOTE | 2019-01-23 09:32 | EDM.PDOC ---
ED HPI GENERAL MEDICAL PROBLEM - General Chief Complaint: Lower Extremity Injury/Pain Stated Complaint: ISSUES WITH L ANKLE Time Seen by Provider: 01/23/19 09:09 Source of Information: Reports: Patient, RN Notes Reviewed - History of Present Illness INITIAL COMMENTS - FREE TEXT/NARRATIVE: 63-year-old male had onset of pain swelling medial aspect of left ankle a few days ago. He has been resting it with elevation, discomfort continues. Had prior gout involving his great toe but has not had ankle gout in the past. He is not aware of any recent injury to the ankle. No other unusual symptoms. There is pain at rest, worse with weightbearing. Left Ankle Pain Score (Numeric/FACES): 7 - Related Data Allergies Allergy/AdvReac Type Severity Reaction Status Date / Time cephalexin [From Keflex] Allergy Rash Verified 01/23/19 09:01 chlorhexidine Allergy Rash Verified 01/23/19 09:01 codeine Allergy Rash Verified 01/23/19 09:01 Home Meds: Home Meds Aspirin [Halfprin] 81 mg PO DAILY 05/08/15 [History] Krill/Om-3/DHA/EPA/Phospho/Ast [Krill Oil 1,000 mg Softgel] 2 tab PO DAILY 11/25 [History] Loratadine [Claritin] 10 mg PO DAILY 11/25/16 [History] Multivitamin [Multivitamins] 1 tab PO DAILY 11/25/16 [History] Rosuvastatin [Crestor] 5 mg PO BEDTIME #30 tablet 11/26/16 [Rx] Meloxicam 1 - 2 tab PO DAILY PRN 08/14/18 [History] Levothyroxine [Synthroid] 100 mcg PO DAILY 09/17/18 [History] Methylphenidate [Ritalin] 10 mg PO DAILY PRN 09/17/18 [History] traMADol [Ultram] 50 - 100 mg PO Q6H PRN #10 tab 10/16/18 [Rx] traMADol [Ultram] 50 mg PO Q4H PRN #20 tab 01/23/19 [Rx] Past Medical History Other HEENT History: [place] Cardiovascular History: Reports: Afib, Aneurysm, High Cholesterol, [place] Other Cardiovascular History: 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 Currently uses 2L oxygen at night for sleep apnea Genitourinary History: Reports: Other (See Below) Other Genitourinary History: [employer] History: Reports: None Musculoskeletal History: Reports: Gout, Other (See Below) Other Musculoskeletal History: Low back surgery x2. herniated disc 1986. discs were pinching spinal cord 2016 Neurological History: Reports: Other (See Below) Other Neuro History: dizziness, intervetebral disc stenosis Psychiatric History: Reports: Other (See Below) Other Psychiatric History: narcolepsy Endocrine/Metabolic History: Reports: Hypothyroidism, Obesity/BMI 30+ Hematologic History: Reports: None Immunologic History: Reports: None Oncologic (Cancer) History: Reports: None Dermatologic History: Reports: Cellulitis Other Dermatologic History: Has had a few moles and areas of skin removed in case it is cancerous. 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 Implant in upper right to hold in 4 teeth. Cardiovascular Surgical History: Reports: Other (See Below) Other Cardiovascular Surgeries/Procedures: ablationx2, defibrillation Respiratory Surgical History: Reports: None GI Surgical History: Reports: Appendectomy, Hernia Repair/Other Other GI Surgeries/Procedures: 3 hernia repairs. colonoscopy a few years ago Male Surgical History: Reports: None Endocrine Surgical History: Reports: None Neurological Surgical History: Reports: Lumbar Spine Musculoskeletal Surgical History: Reports: Amputation, Other (See Below) Other Musculoskeletal Surgeries/Procedures:: torn bicep tendon Oncologic Surgical History: Reports: None Dermatological Surgical History: Reports: Skin Biopsy Social & Family History - Family History Family Medical History: Noncontributory Neurological: Reports: Alzheimers Disease Other Oncologic Family History: father had cancer - Tobacco Use Smoking Status *Q: Never Smoker - Caffeine Use Caffeine Use: Reports: Coffee, Soda - Recreational Drug Use Recreational Drug Use: No - Living Situation & Occupation Living situation: Reports: , with Spouse Occupation: Employed ([employer]) Review of Systems - Review of Systems Review Of Systems: See Below Constitutional: Denies: Chills, Fever Mouth/Throat: Reports: No Symptoms Respiratory: Denies: Shortness of Breath Cardiovascular: Denies: Chest Pain GI/Abdominal: Denies: Abdominal Pain, Nausea, Vomiting Musculoskeletal: Reports: Joint Pain (Left ankle, medial aspect) Skin: Reports: Erythema (Mild erythema medial aspect left ankle) Neurological: Denies: Numbness, Tingling ED EXAM, GENERAL - Physical Exam Exam: See Below General Appearance: Alert, No Apparent Distress Throat/Mouth: Normal Inspection Head: Atraumatic Neck: Supple Respiratory/Chest: No Respiratory Distress, Lungs Clear Cardiovascular: Regular Rate, Rhythm Extremities: Joint Swelling (Very mild swelling of the medial aspect left ankle with mild erythema, very mildly warm, lateral ankle nontender, not warm or erythematous), Other (Remainder of foot unremarkable) Neurological: No Motor/Sensory Deficits Skin Exam: Warm, Dry Course - Vital Signs Last Recorded V/S: Last Vital Signs Temp 97.6 F 01/23/19 08:59 Pulse 76 01/23/19 08:59 Resp 17 01/23/19 08:59 BP 136/82 01/23/19 08:59 Pulse Ox 94 L 01/23/19 08:59 - Orders/Labs/Meds Meds: Medications Discontinued Medications Generic Name Dose Route Start Last Admin Trade Name Freq PRN Reason Stop Dose Admin Tramadol HCl 50 mg 01/23/19 09:23 01/23/19 09:32 Ultram PO 01/23/19 09:24 50 mg ONETIME ONE Administration Departure - Departure Time of Disposition: 09:28 Disposition: Home, Self-Care 01 Condition: Fair Clinical Impression: Gout attack Qualifiers: Gout site: ankle Gout etiology: unspecified cause Laterality: left Qualified Code(s): M10.9 - Gout, unspecified - Discharge Information Prescriptions: traMADol [Ultram] 50 mg PO Q4H PRN #20 tab PRN Reason: Pain Instructions: Gout, [id number] Referrals: Samantha Barnse PA-C [Primary Care Provider] - Forms: ED Department Discharge Additional Instructions: Prednisone 60 mg or 3 tablets this morning and tomorrow morning, 20 mg or one tablet this evening and tomorrow evening. Then 60 mg every morning for the next 2 days and then 40 mg every morning for the following 2 days. You may take Tylenol up to 3 times daily for discomfort and tramadol in between doses of Tylenol for extra pain relief as needed. Continue to rest and elevate foot and ankle is much as possible until pain resolving. Follow up clinic if symptoms not resolving over the next few days as expected.
== END 2019-01-23 09:41 | disposition home or self-care (01) ==
LOC: JD.ED 08:47
DX: M10.9 Gout, unspecified (principal); I48.91 Unspecified atrial fibrillation; E78.00 Pure hypercholesterolemia, unspecified; I25.2 Old myocardial infarction; E03.9 Hypothyroidism, unspecified; Z79.899 Other long term (current) drug therapy; Z79.82 Long term (current) use of aspirin; Z88.5 Allergy status to narcotic agent; Z88.1 Allergy status to other antibiotic agents; Z88.8 Allergy status to other drugs, medicaments and biological substances
CPT/HCPCS: 99283; A9270

== ENCOUNTER 2019-04-26 00:40 | Emergency (ER) | payer MEDICARE, BC ==
[2019-04-26 00:49] VITALS: BP 129/78
--- NOTE | 2019-04-26 02:05 | EDM.PDOC ---
ED HPI GENERAL MEDICAL PROBLEM - General Chief Complaint: Upper Extremity Injury/Pain Stated Complaint: LEFT ARM PAIN Time Seen by Provider: 04/26/19 01:18 Source of Information: Reports: Patient History Limitations: Reports: No Limitations - History of Present Illness INITIAL COMMENTS - FREE TEXT/NARRATIVE: This is a 64-year-old male. He states for the last couple of days his left elbow has been extremely painful. He says today that he is been, aching all over as well low back pain but his left elbow he is not able to extend it completely and keeps it at a 90 mostly in a neutral position. He denies any history of having hit it forearm it poked it or scraped it. He does have a history of gout but he hasn't had in quite some time. The he doesn't really have any marked swelling of the elbow there is some mild erythema and warmth to it. He denies any other acute symptoms no fever no chills. Left Upper Arm Pain Score (Numeric/FACES): 8 - Related Data Allergies Allergy/AdvReac Type Severity Reaction Status Date / Time cephalexin [From Keflex] Allergy Rash Verified 04/26/19 00:49 chlorhexidine Allergy Rash Verified 04/26/19 00:49 codeine Allergy Rash Verified 04/26/19 00:49 Home Meds: Home Meds Aspirin [Halfprin] 81 mg PO DAILY 05/08/15 [History] Krill/Om-3/DHA/EPA/Phospho/Ast [Krill Oil 1,000 mg Softgel] 2 tab PO DAILY 11/25 [History] Loratadine [Claritin] 10 mg PO DAILY 11/25/16 [History] Multivitamin [Multivitamins] 1 tab PO DAILY 11/25/16 [History] Rosuvastatin [Crestor] 5 mg PO BEDTIME #30 tablet 11/26/16 [Rx] Meloxicam 1 - 2 tab PO DAILY PRN 08/14/18 [History] Levothyroxine [Synthroid] 100 mcg PO DAILY 09/17/18 [History] Methylphenidate [Ritalin] 10 mg PO DAILY PRN 09/17/18 [History] traMADol [Ultram] 50 mg PO Q4H PRN #20 tab 01/23/19 [Rx] Acetaminophen/oxyCODONE [Percocet 325-5 MG] 1 each PO Q6HR PRN #15 tab 04/26/19 [Rx] Past Medical History Other HEENT History: Lasik Cardiovascular History: Reports: Afib, Aneurysm, High Cholesterol, [place] Other Cardiovascular History: 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 Currently uses 2L oxygen at night for sleep apnea Genitourinary History: Reports: Other (See Below) Other Genitourinary History: ED [employer] History: Reports: None Musculoskeletal History: Reports: Gout, Other (See Below) Other Musculoskeletal History: Low back surgery x2. herniated disc 1986. discs were pinching spinal cord 2015. rib fractures Neurological History: Reports: Other (See Below) Other Neuro History: dizziness, intervetebral disc stenosis Psychiatric History: Reports: Other (See Below) Other Psychiatric History: narcolepsy Endocrine/Metabolic History: Reports: Hypothyroidism, Obesity/BMI 30+ Hematologic History: Reports: None Immunologic History: Reports: None Oncologic (Cancer) History: Reports: None Dermatologic History: Reports: Cellulitis Other Dermatologic History: Has had a few moles and areas of skin removed in case it is cancerous. 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 Implant in upper right to hold in 4 teeth. Cardiovascular Surgical History: Reports: Other (See Below) Other Cardiovascular Surgeries/Procedures: ablationx2, defibrillation Respiratory Surgical History: Reports: None GI Surgical History: Reports: Appendectomy, Hernia Repair/Other Other GI Surgeries/Procedures: 3 hernia repairs. colonoscopy a few years ago Male Surgical History: Reports: None Endocrine Surgical History: Reports: None Neurological Surgical History: Reports: Lumbar Spine Musculoskeletal Surgical History: Reports: Amputation, Other (See Below) Other Musculoskeletal Surgeries/Procedures:: torn bicep tendon, bone spurs in neck removed, finger amputation Oncologic Surgical History: Reports: None Dermatological Surgical History: Reports: Skin Biopsy Social & Family History - Family History Family Medical History: Noncontributory Neurological: Reports: Alzheimers Disease Other Oncologic Family History: father had cancer - Tobacco Use Smoking Status *Q: Never Smoker - Caffeine Use Caffeine Use: Reports: Energy Drinks - Recreational Drug Use Recreational Drug Use: No - Living Situation & Occupation Living situation: Reports: , with Spouse Occupation: Employed ([employer]) Review of Systems - Review of Systems Review Of Systems: See Below Constitutional: Denies: Chills, Fever Eyes: Reports: No Symptoms Ears: Reports: No Symptoms Nose: Reports: No Symptoms Mouth/Throat: Reports: No Symptoms Respiratory: Reports: No Symptoms Cardiovascular: Reports: No Symptoms GI/Abdominal: Reports: No Symptoms Genitourinary: Reports: No Symptoms Musculoskeletal: Reports: Other (Left elbow pain) Skin: Reports: Erythema Neurological: Reports: No Symptoms Psychiatric: Reports: No Symptoms ED EXAM, GENERAL - Physical Exam Exam: See Below Exam Limited By: No Limitations General Appearance: Alert, WD/WN, No Apparent Distress Eye Exam: Bilateral Eye: Normal Inspection Ears: Normal External Exam Nose: Normal Inspection Throat/Mouth: Normal Inspection, Normal Lips, Normal Voice, No Airway Compromise Head: Normocephalic Neck: Supple Respiratory/Chest: No Respiratory Distress Back Exam: Full Range of Motion Extremities: Increased Warmth, Other (Left elbow does have some slight swelling and erythema noted on the posterior area, he can extend it to about 135 and then he can't straighten it any further, he keeps his elbow flexed at 90 the hand in a neutral position where it feels better, there is no evidence of trauma to that elbow) Neurological: Alert, Oriented Psychiatric: Normal Affect, Normal Mood Skin Exam: Warm, Dry Course - Vital Signs Last Recorded V/S: Last Vital Signs Temp 98.9 F 04/26/19 00:46 Pulse 74 04/26/19 00:46 Resp 16 04/26/19 00:46 BP 129/78 04/26/19 00:46 Pulse Ox 92 L 04/26/19 00:46 - Orders/Labs/Meds Orders: Active Orders 24 hr Category Date Time Status Communication Order [RC] STAT Care 04/26/19 03:30 Active Elbow Min 3V Lt [CR] Stat Exams 04/26/19 02:00 Taken Acetaminophen/oxyCODONE [Percocet 325-5 MG] Med 04/26/19 03:32 Once 1 tab PO ONETIME ONE Labs: Laboratory Tests 04/26/19 04/26/19 Range/Units 02:10 02:10 WBC 11.54 H (4.23-9.07) K/mm3 RBC 4.78 (4.63-6.08) M/mm3 Hgb 14.0 D (13.7-17.5) gm/L Hct 41.9 (40.1-51.0) % MCV 87.7 (79.0-92.2) fl MCH 29.3 (25.7-32.2) pg MCHC 33.4 (32.2-35.5) g/dl RDW Std Deviation 44.0 H (35.1-43.9) fL Plt Count 208 (163-337) K/mm3 MPV 10.5 (9.4-12.3) fl Neut % (Auto) 70.2 H (34.0-67.9) % Lymph % (Auto) 15.9 L (21.8-53.1) % [place] % (Auto) 10.0 (5.3-12.2) % Eos % (Auto) 3.3 (0.8-7.0) Baso % (Auto) 0.3 (0.1-1.2) % Neut # (Auto) 8.10 H (1.78-5.38) K/mm3 Lymph # (Auto) 1.84 (1.32-3.57) K/mm3 [place] # (Auto) 1.15 H (0.30-0.82) K/mm3 Eos # (Auto) 0.38 (0.04-0.54) K/mm3 Baso # (Auto) 0.04 (0.01-0.08) K/mm3 Uric Acid 7.3 H (3.5-7.2) mg/dL C-Reactive Protein 1.5 H* (<1.0) mg/dL - Radiology Interpretation Free Text/Narrative:: He has a shattered radial head that looks like it's old, may be a condyle fracture also but he has no history of trauma other than in 1997. - Re-Assessments/Exams Free Text/Narrative Re-Assessment/Exam: 04/26/19 03:33 I spoke to the patient and his regarding the x-ray results as well as the lab results. I'm going to refer him to the employment specialist. 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 Shahid by calling his office on Saturday and get an appointment for this week, return to the ER if needed - My Orders Last 24 Hours: My Active Orders 04/26/19 02:00 Elbow Min 3V Lt [CR] Stat 04/26/19 03:30 Communication Order [RC] STAT 04/26/19 03:32 Acetaminophen/oxyCODONE [Percocet 325-5 MG] 1 tab PO ONETIME ONE - Assessment/Plan Last 24 Hours: My Active Orders 04/26/19 02:00 Elbow Min 3V Lt [CR] Stat 04/26/19 03:30 Communication Order [RC] STAT 04/26/19 03:32 Acetaminophen/oxyCODONE [Percocet 325-5 MG] 1 tab PO ONETIME ONE
[2019-04-26] MEDS ORDERED: Acetaminophen/oxyCODONE 325-5 MG Tab PO ONE ×2 (03:32→03:46)
--- NOTE | 2019-04-27 11:27 | CR ---
Left elbow: Four views of the left elbow were obtained. Comparison: No previous study. Comminuted fracture identified within the radial head and neck. Some of this appears to be chronic with deformity seen within the radial neck. Articular extension is seen. Soft tissue swelling is noted. Small calcified foreign bodies are seen within the joint. Minimal joint effusion is seen. No additional abnormality is noted. Impression: 1. Comminuted fracture within the radial neck and head with articular extension. Findings are felt to represent combination of chronic ununited fracture with superimposed acute fractures. 2. Minimal joint effusion and small calcified loose bodies. Diagnostic code #3
== END 2019-04-26 03:55 | disposition home or self-care (01) ==
LOC: JD.ED 00:40
DX: M19.122 Post-traumatic osteoarthritis, left elbow (principal); E66.9 Obesity, unspecified; E03.9 Hypothyroidism, unspecified; I25.2 Old myocardial infarction; I48.91 Unspecified atrial fibrillation; M10.9 Gout, unspecified; Z98.890 Other specified postprocedural states; Z90.49 Acquired absence of other specified parts of digestive tract; Z79.899 Other long term (current) drug therapy; Z79.82 Long term (current) use of aspirin; Z88.1 Allergy status to other antibiotic agents; Z88.5 Allergy status to narcotic agent; Z88.8 Allergy status to other drugs, medicaments and biological substances
CPT/HCPCS: 36415; 73080; 84550; 85025; 86140; 99283; A9270

== ENCOUNTER 2019-12-17 13:13 | Emergency (ER) | payer MEDICARE, BC ==
[2019-12-17 13:38] VITALS: BP 155/84; PULSE 65
[2019-12-17] MEDS ORDERED: Acetaminophen 325 MG Tab PO ONE (13:58)
--- NOTE | 2019-12-17 14:02 | EDM.PDOC ---
<Sujey Montoya - Last Filed: 12/17/19 13:53> ED HPI GENERAL MEDICAL PROBLEM - General Chief Complaint: Upper Extremity Injury/Pain Stated Complaint: RIGHT WRIST PAIN Time Seen by Provider: 12/17/19 13:34 Source of Information: Reports: Patient History Limitations: Reports: No Limitations - History of Present Illness INITIAL COMMENTS - FREE TEXT/NARRATIVE: Patient is a pleasant 64-year-old male who presents to the ED today for right wrist pain. He stats this morning he was getting ready for the day when he twisted his wrist and heard, as well as felt, a pop in the ventral radial aspect of the right wrist. He states after he heard the pop he instantly felt pain, an 8/10 sharp stabbing characteristics. He states he took two Tramadol tablets at 0800 and it is wearing off. He denies any numbness or tingling to the fight fingers and forearm. He has full range of motion, but has pain with movements. With wrist extension and flexion he states it feels tight over the ventral radial aspect. There is minimal swelling in this area. There is no evidence of bruising to the area. He states he went to work and noticed the pain the most when he would release his hand grasp. Onset: Sudden Duration: Hour(s): Location: Reports: Upper Extremity, Right Quality: Reports: Sharp, Stabbing Severity: Moderate Improves with: Reports: Medication, Rest Worsens with: Denies: Movement Associated Symptoms: Reports: No Other Symptoms Right Wrist Pain Score (Numeric/FACES): 8 - Related Data Allergies Allergy/AdvReac Type Severity Reaction Status Date / Time cephalexin [From Keflex] Allergy Rash Verified 12/17/19 13:39 chlorhexidine Allergy Rash Verified 12/17/19 13:39 codeine Allergy Rash Verified 12/17/19 13:39 Home Meds: Home Meds Aspirin [Halfprin] 81 mg PO DAILY 05/08/15 [History] Krill/Om-3/DHA/EPA/Phospho/Ast [Krill Oil 1,000 mg Softgel] 2 tab PO DAILY 11/25 [History] Loratadine [Claritin] 10 mg PO DAILY 11/25/16 [History] Multivitamin [Multivitamins] 1 tab PO DAILY 11/25/16 [History] Rosuvastatin [Crestor] 5 mg PO BEDTIME #30 tablet 11/26/16 [Rx] Meloxicam 1 - 2 tab PO DAILY PRN 08/14/18 [History] Levothyroxine [Synthroid] 100 mcg PO DAILY 09/17/18 [History] Methylphenidate [Ritalin] 10 mg PO DAILY PRN 09/17/18 [History] traMADol [Ultram] 50 mg PO Q4H PRN #20 tab 01/23/19 [Rx] Acetaminophen/oxyCODONE [Percocet 325-5 MG] 1 each PO Q6HR PRN #15 tab 04/26/19 [Rx] predniSONE [Prednisone] 20 mg PO ASDIRECTED #12 tablet 12/17/19 [Rx] Past Medical History Other HEENT History: Lasik Cardiovascular History: Reports: Afib, Aneurysm, High Cholesterol, [place] Other Cardiovascular History: 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 Currently uses 2L oxygen at night for sleep apnea Genitourinary History: Reports: Other (See Below) Other Genitourinary History: ED [employer]ING [employer] HAND History: Reports: None Musculoskeletal History: Reports: Gout, Other (See Below) Other Musculoskeletal History: Low back surgery x2. herniated disc 1986. discs were pinching spinal cord 2015. rib fractures Neurological History: Reports: Other (See Below) Other Neuro History: dizziness, intervetebral disc stenosis Psychiatric History: Reports: Other (See Below) Other Psychiatric History: narcolepsy Endocrine/Metabolic History: Reports: Hypothyroidism, Obesity/BMI 30+ Hematologic History: Reports: None Immunologic History: Reports: None Oncologic (Cancer) History: Reports: None Dermatologic History: Reports: Cellulitis Other Dermatologic History: Has had a few moles and areas of skin removed in case it is cancerous. 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 Implant in upper right to hold in 4 teeth. Cardiovascular Surgical History: Reports: Other (See Below) Other Cardiovascular Surgeries/Procedures: ablationx2, defibrillation Respiratory Surgical History: Reports: None GI Surgical History: Reports: Hernia Repair/Other Other GI Surgeries/Procedures: 3 hernia repairs. colonoscopy a few years ago Male Surgical History: Reports: None Endocrine Surgical History: Reports: None Neurological Surgical History: Reports: Lumbar Spine Musculoskeletal Surgical History: Reports: Amputation, Other (See Below) Other Musculoskeletal Surgeries/Procedures:: torn bicep tendon, bone spurs in neck removed, finger amputation Oncologic Surgical History: Reports: None Dermatological Surgical History: Reports: Skin Biopsy Social & Family History - Family History Family Medical History: Noncontributory Neurological: Reports: Alzheimers Disease Other Oncologic Family History: father had cancer - Tobacco Use Smoking Status *Q: Never Smoker - Caffeine Use Caffeine Use: Reports: Energy Drinks, Soda - Recreational Drug Use Recreational Drug Use: No - Living Situation & Occupation Living situation: Reports: , with Spouse Occupation: Employed ([id number]) Review of Systems - Review of Systems Review Of Systems: See Below Constitutional: Reports: No Symptoms Respiratory: Reports: No Symptoms. Denies: Shortness of Breath Cardiovascular: Reports: No Symptoms. Denies: Chest Pain Musculoskeletal: Reports: Joint Pain (ventral radial aspect of right distal forearm with minimal swelling) Skin: Reports: No Symptoms. Denies: Bruising, Erythema Neurological: Reports: No Symptoms. Denies: Numbness, Tingling Psychiatric: Reports: No Symptoms ED EXAM, GENERAL - Physical Exam Exam: See Below Exam Limited By: No Limitations General Appearance: Alert, WD/WN, No Apparent Distress Respiratory/Chest: No Respiratory Distress, Lungs Clear, Normal Breath Sounds, Chest Non-Tender Cardiovascular: Normal Peripheral Pulses, Regular Rate, Rhythm, No Edema, No Murmur Extremities: Normal Inspection, No Pedal Edema, Normal Capillary Refill, Other ( pain with palpation over ventral radial aspect of right distal forearm. Minimal swelling to the area. No erythema or ecchymosis noted. Denies numbness/tingling to right thumb and finger. Radial pulse 2+) Psychiatric: Normal Affect, Normal Mood Skin Exam: Warm, Dry, Intact, Normal Color, No Rash Course - Vital Signs Last Recorded V/S: Last Vital Signs Temp 98.5 F 12/17/19 13:35 Pulse 65 12/17/19 13:35 Resp 16 12/17/19 13:35 BP 155/84 H 12/17/19 13:35 Pulse Ox 95 12/17/19 13:35 - Orders/Labs/Meds Orders: Active Orders 24 hr Category Date Time Status Wrist Comp Min 3V Rt [CR] Stat Exams 12/17/19 13:52 Taken DME for Discharge [COMM] Stat Oth 12/17/19 14:13 Ordered Meds: Medications Discontinued Medications Generic Name Dose Route Start Last Admin Trade Name Donte PRN Reason Stop Dose Admin Acetaminophen 975 mg 12/17/19 13:58 12/17/19 14:26 Tylenol PO 12/17/19 13:59 975 mg NOW ONE Administration Departure - Departure Disposition: Home, Self-Care 01 Clinical Impression: Right wrist tendinitis - Discharge Information Prescriptions: predniSONE [Prednisone] 20 mg PO ASDIRECTED #12 tablet Instructions: Tendinitis, [id number] Referrals: Samantha Barnes PA-C [Primary Care Provider] - Forms: ED Department Discharge Additional Instructions: You were seen in the emergency department today for pain to your right wrist. An x-ray was done there was no signs of any fractures. It is likely it you are suffering from a tendinitis which is an inflammation of the tendons within the wrist. You have been provided a splint for your wrist. Recommend that she wear this for the next couple days and then for comfort as needed. You may ice over the area as needed. A prescription for prednisone has been sent to [facility]. Take this medication as prescribed. You may also use Tylenol or ibuprofen as needed for pain. If after 2 weeks you continue to have pain to this wrist, I recommend that you follow-up with your primary care provider. The number to schedule with him as listed below. Return to the ER as needed. Sepsis Event Note - Evaluation Sepsis Screening Result: No Definite Risk - Focused Exam Vital Signs: Vital Signs Temp Pulse Resp BP Pulse Ox 12/17/19 13:35 98.5 F 65 16 155/84 H 95 Date Exam was Performed: 12/17/19 Time Exam was Performed: 13:53 - My Orders Last 24 Hours: My Active Orders 12/17/19 13:52 Wrist Comp Min 3V Rt [CR] Stat 12/17/19 14:13 DME for Discharge [COMM] Stat - Assessment/Plan Last 24 Hours: My Active Orders 12/17/19 13:52 Wrist Comp Min 3V Rt [CR] Stat 12/17/19 14:13 DME for Discharge [COMM] Stat <Angeles,Deysi - Last Filed: 12/17/19 15:09> Course - Re-Assessments/Exams Free Text/Narrative Re-Assessment/Exam: 12/17/19 14:10 Patient was examined by me and I agree with the HPI and exam as documented by BUCK Adams student. Patient did state that this last week he was shooting his gun and he initially started having pain in this area from the repetitive motion of loading the magazine. X-ray shows no abnormalities. He is likely suffering from tendinitis. We will give him a wrist splint as well as a prescription for prednisone. Discharge instructions as documented. Departure - Departure Time of Disposition: 14:13 Condition: Fair - Discharge Information *PRESCRIPTION DRUG MONITORING PROGRAM REVIEWED*: No *COPY OF PRESCRIPTION DRUG MONITORING REPORT IN PATIENT TAYLOR: No Sepsis Event Note - Focused Exam Date Exam was Performed: 12/17/19 Time Exam was Performed: 15:08
--- NOTE | 2019-12-17 15:49 | CR ---
Right wrist: Four views of the right wrist were obtained. Comparison: No prior wrist exam. Joint spaces are maintained. No fracture, dislocation or other bony abnormality is seen. Impression: 1. No abnormality is identified on right wrist exam. Diagnostic code #1 This report was dictated in [place] Standard Time
== END 2019-12-17 14:37 | disposition home or self-care (01) ==
LOC: JD.ED 13:13
DX: M77.9 Enthesopathy, unspecified (principal); I48.91 Unspecified atrial fibrillation; E78.00 Pure hypercholesterolemia, unspecified; I25.2 Old myocardial infarction; M10.9 Gout, unspecified; E03.9 Hypothyroidism, unspecified; E66.9 Obesity, unspecified; Z68.37 Body mass index [BMI] 37.0-37.9, adult; Z88.1 Allergy status to other antibiotic agents; Z88.5 Allergy status to narcotic agent; Z88.8 Allergy status to other drugs, medicaments and biological substances; Z79.82 Long term (current) use of aspirin; Z79.899 Other long term (current) drug therapy
CPT/HCPCS: 73110; 99283; A9270

== ENCOUNTER 2020-06-08 10:08 | Emergency (ER) | payer MEDICARE, BC ==
[2020-06-08] MEDS ORDERED: Sodium Chloride 0.9% 10 ML Syringe FLUSH PRN (10:12)
--- NOTE | 2020-06-08 10:36 | CT ---
Head CT Technique: Multiple axial sections through the brain were obtained. Intravenous contrast was not utilized. Comparison: Prior head CT exam of 08/14/18. Findings: Ventricles along with basal cisterns and sulci over the convexities are mildly prominent. Very minimal diminished density noted within portions of the periventricular white matter compatible with small vessel ischemic demyelination change. No other abnormal parenchymal densities are seen. No evidence of intracranial hemorrhage. No midline shift or mass-effect is seen. Bone window settings were reviewed. Minimal mucosal thickening is seen within a slightly hypoplastic right maxillary sinus. No acute paranasal sinus finding is seen within the visualized sinuses. Visualized mastoid sinuses show nothing acute. No acute calvarial finding is seen. Impression: 1. Senescent change. 2. Other findings believed to be incidental. 3. Nothing acute is definitely appreciated on noncontrast head CT study. Note: Consider MRI to further evaluate. Diagnostic code #2 This report was dictated in MDT
--- NOTE | 2020-06-08 12:12 | EDM.PDOC ---
ED HPI GENERAL MEDICAL PROBLEM - General Chief Complaint: Neuro Symptoms/Deficits Stated Complaint: SLURRED SPEECH/DIZZY Time Seen by Provider: 06/08/20 10:12 Source of Information: Reports: Patient, Family History Limitations: Reports: No Limitations - History of Present Illness INITIAL COMMENTS - FREE TEXT/NARRATIVE: The patient presents with stroke like symptoms. 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 His daughter was there and the patient had some slurred speech, was unsteady and was confused. This lasted a few minutes and by the time he got to the ER his symptoms were gone. He says he may have a little dizziness when he opens his eyes. He has no headache, fever, chills, cough, congestion, chest pain, shortness of breath, abdominal pain, nausea or vomiting. He has a history of A-fib and he is on eliquis. Just over 2 weeks ago he was in [place] and had similar symptoms and he was seen at the ER in [place]. They did a CT and MRI. His daughter who is a nurse said there was a vessel that was narrowed. He did not miss any doses of his medications. He has mild weakness in his right leg from a bulging disc he is being seen for. Onset: Sudden Duration: Minutes: Severity: Moderate Improves with: Reports: None Worsens with: Reports: None Associated Symptoms: Reports: No Other Symptoms - Related Data Allergies Allergy/AdvReac Type Severity Reaction Status Date / Time cephalexin [From Keflex] Allergy Rash Verified 12/17/19 13:39 chlorhexidine Allergy Rash Verified 12/17/19 13:39 codeine Allergy Rash Verified 12/17/19 13:39 Home Meds: Home Meds Krill/Om-3/DHA/EPA/Phospho/Ast [Krill Oil 1,000 mg Softgel] 2 tab PO DAILY 11/25/16 [History] Loratadine [Claritin] 10 mg PO DAILY 11/25/16 [History] Multivitamin [Multivitamins] 1 tab PO DAILY 11/25/16 [History] Rosuvastatin [Crestor] 5 mg PO BEDTIME #30 tablet 11/26/16 [Rx] Levothyroxine [Synthroid] 137 mcg PO DAILY 09/17/18 [History] Methylphenidate [Ritalin] 10 mg PO DAILY PRN 09/17/18 [History] Apixaban [Eliquis] 5 mg PO BID 06/08/20 [History] Past Medical History Other HEENT History: Lasik Cardiovascular History: Reports: Afib, Aneurysm, High Cholesterol, HI Other Cardiovascular History: 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 Currently uses 2L oxygen at night for sleep apnea Genitourinary History: Reports: Other (See Below) Other Genitourinary History: ED NURSE GENERAL DUTY History: Reports: None Musculoskeletal History: Reports: Gout, Other (See Below) Other Musculoskeletal History: Low back surgery x2. herniated disc 1986. discs were pinching spinal cord 2015. rib fractures Neurological History: Reports: Other (See Below) Other Neuro History: dizziness, intervetebral disc stenosis Psychiatric History: Reports: Other (See Below) Other Psychiatric History: narcolepsy Endocrine/Metabolic History: Reports: Hypothyroidism, Obesity/BMI 30+ Hematologic History: Reports: None Immunologic History: Reports: None Oncologic (Cancer) History: Reports: None Dermatologic History: Reports: Cellulitis Other Dermatologic History: Has had a few moles and areas of skin removed in case it is cancerous. 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 Implant in upper right to hold in 4 teeth. Cardiovascular Surgical History: Reports: Other (See Below) Other Cardiovascular Surgeries/Procedures: ablationx2, defibrillation Respiratory Surgical History: Reports: None GI Surgical History: Reports: Hernia Repair/Other Other GI Surgeries/Procedures: 3 hernia repairs. colonoscopy a few years ago Male Surgical History: Reports: None Endocrine Surgical History: Reports: None Neurological Surgical History: Reports: Lumbar Spine Musculoskeletal Surgical History: Reports: Amputation, Other (See Below) Other Musculoskeletal Surgeries/Procedures:: torn bicep tendon, bone spurs in neck removed, finger amputation Oncologic Surgical History: Reports: None Dermatological Surgical History: Reports: Skin Biopsy Social & Family History - Family History Family Medical History: Noncontributory Neurological: Reports: Alzheimers Disease Other Oncologic Family History: father had cancer - Tobacco Use Smoking Status *Q: Never Smoker Second Hand Smoke Exposure: No - Caffeine Use Caffeine Use: Reports: Soda - Alcohol Use Days Per Week of Alcohol Use: 7 Number of Drinks Per Day: 3 Total Drinks Per Week: 21 - Recreational Drug Use Recreational Drug Use: No - Living Situation & Occupation Living situation: Reports: , with Spouse 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) ED ROS GENERAL - Review of Systems Review Of Systems: See Below Constitutional: Reports: No Symptoms HEENT: Reports: No Symptoms Respiratory: Reports: No Symptoms Cardiovascular: Reports: No Symptoms Endocrine: Reports: No Symptoms GI/Abdominal: Reports: No Symptoms : Reports: No Symptoms Musculoskeletal: Reports: No Symptoms Skin: Reports: No Symptoms Neurological: Reports: Other (Dizziness, confusion, slurred speech, and unsteady gate.) ED EXAM, NEURO - Physical Exam Exam: See Below Exam Limited By: No Limitations General Appearance: Alert, No Apparent Distress Ears: Normal External Exam Nose: Normal Inspection Head Exam: Atraumatic, Normocephalic Neck: Normal Inspection Respiratory/Chest: No Respiratory Distress, Lungs Clear, Normal Breath Sounds Cardiovascular: Regular Rate, Rhythm, No Edema, No Murmur GI/Abdominal: Soft, Non-Tender, No Organomegaly, No Mass Neurological: Alert, Oriented x 3, Other (very mild right leg wakness. No arm weakness) Extremities: Normal Inspection EKG INTERPRETATION EKG Date: 06/08/20 Time: 10:26 Rhythm: NSR Rate (Beats/Min): 71 [place]: Normal P-Wave: Present QRS: Normal ST-T: Normal QT: Normal Course - Vital Signs Last Recorded V/S: Last Vital Signs Temp 97.9 F 06/08/20 10:10 Pulse 74 06/08/20 10:10 Resp 18 06/08/20 10:10 BP 102/60 06/08/20 10:10 Pulse Ox 88 L 06/08/20 10:10 - Orders/Labs/Meds Orders: Active Orders 24 hr Category Date Time Status Cardiac Monitoring [RC] . DIRECTED Care 06/08/20 10:12 Active EKG Documentation Completion [RC] STAT Care 06/08/20 10:14 Active Peripheral IV Care [RC] . DIRECTED Care 06/08/20 10:14 Active Sodium Chloride 0.9% [Saline Flush] Med 06/08/20 10:12 Active 10 ml FLUSH ASDIRECTED PRN Sodium Chloride 0.9% [Saline Flush] Med 06/08/20 13:30 Active 30 ml FLUSH ASDIRECTED Peripheral IV Insertion Adult [OM.PC] Stat Oth 06/08/20 10:12 Ordered Medication Orders Sodium Chloride (Saline Flush) 10 ml FLUSH ASDIRECTED PRN PRN Reason: Keep Vein Open Last Admin: 06/08/20 10:25 Dose: 10 ml Documented by: PATRIC Sodium Chloride (Saline Flush) 30 ml FLUSH ASDIRECTED JOHNNIE Last Admin: 06/08/20 14:10 Dose: 30 ml Documented by: JESSICA Labs: Laboratory Tests 06/08/20 06/08/20 06/08/20 Range/Units 10:25 10:25 10:25 WBC 8.29 (4.23-9.07) K/mm3 RBC 4.82 (4.63-6.08) M/mm3 Hgb 13.6 L D (13.7-17.5) gm/dl Hct 42.1 (40.1-51.0) % MCV 87.3 (79.0-92.2) fl MCH 28.2 (25.7-32.2) pg MCHC 32.3 (32.2-35.5) g/dl RDW Std Deviation 43.5 (35.1-43.9) fL Plt Count 325 (163-337) K/mm3 MPV 10.1 (9.4-12.3) fl Neut % (Auto) 79.5 H (34.0-67.9) % Lymph % (Auto) 10.3 L (21.8-53.1) % [place] % (Auto) 8.4 (5.3-12.2) % Eos % (Auto) 0.5 L (0.8-7.0) Baso % (Auto) 0.5 (0.1-1.2) % Neut # (Auto) 6.59 H (1.78-5.38) K/mm3 Lymph # (Auto) 0.85 L (1.32-3.57) K/mm3 [place] # (Auto) 0.70 (0.30-0.82) K/mm3 Eos # (Auto) 0.04 (0.04-0.54) K/mm3 Baso # (Auto) 0.04 (0.01-0.08) K/mm3 PT 11.3 (9.7-12.0) SECONDS INR 1.04 APTT 26 (22-31) SECONDS Sodium 143 (136-145) mEq/L Potassium 3.8 (3.5-5.1) mEq/L Chloride 105 (98-107) mEq/L Carbon Dioxide 28 (21-32) mEq/L Anion Gap 13.8 (5-15) BUN 18 (7-18) mg/dL Creatinine 1.2 (0.7-1.3) mg/dL Est Cr Clr Drug Dosing 62.52 mL/min Estimated GFR (MDRD) > 60 (>60) mL/min BUN/Creatinine Ratio 15.0 (14-18) Glucose 140 H (80-115) mg/dL POC Glucose (80-115) mg/dL Calcium 8.3 L (8.5-10.1) mg/dL Total Bilirubin 0.4 (0.2-1.0) mg/dL AST 20 (15-37) U/L ALT 35 (16-63) U/L Alkaline Phosphatase 66 (46-116) U/L Troponin I < 0.017 (0.00-0.056) ng/mL Total Protein 6.7 (6.4-8.2) g/dl Albumin 2.9 L (3.4-5.0) g/dl Globulin 3.8 gm/dL Albumin/Globulin Ratio 0.8 L (1-2) 06/08/20 Range/Units 10:27 WBC (4.23-9.07) K/mm3 RBC (4.63-6.08) M/mm3 Hgb (13.7-17.5) gm/dl Hct (40.1-51.0) % MCV (79.0-92.2) fl MCH (25.7-32.2) pg MCHC (32.2-35.5) g/dl RDW Std Deviation (35.1-43.9) fL Plt Count (163-337) K/mm3 MPV (9.4-12.3) fl Neut % (Auto) (34.0-67.9) % Lymph % (Auto) (21.8-53.1) % [place] % (Auto) (5.3-12.2) % Eos % (Auto) (0.8-7.0) Baso % (Auto) (0.1-1.2) % Neut # (Auto) (1.78-5.38) K/mm3 Lymph # (Auto) (1.32-3.57) K/mm3 [place] # (Auto) (0.30-0.82) K/mm3 Eos # (Auto) (0.04-0.54) K/mm3 Baso # (Auto) (0.01-0.08) K/mm3 PT (9.7-12.0) SECONDS INR APTT (22-31) SECONDS Sodium (136-145) mEq/L Potassium (3.5-5.1) mEq/L Chloride (98-107) mEq/L Carbon Dioxide (21-32) mEq/L Anion Gap (5-15) BUN (7-18) mg/dL Creatinine (0.7-1.3) mg/dL Est Cr Clr Drug Dosing mL/min Estimated GFR (MDRD) (>60) mL/min BUN/Creatinine Ratio (14-18) Glucose (80-115) mg/dL POC Glucose 134 H (80-115) mg/dL Calcium (8.5-10.1) mg/dL Total Bilirubin (0.2-1.0) mg/dL AST (15-37) U/L ALT (16-63) U/L Alkaline Phosphatase (46-116) U/L Troponin I (0.00-0.056) ng/mL Total Protein (6.4-8.2) g/dl Albumin (3.4-5.0) g/dl Globulin gm/dL Albumin/Globulin Ratio (1-2) Meds: Medications Generic Name Dose Route Start Last Admin Trade Name Freq PRN Reason Stop Dose Admin Sodium Chloride 10 ml 06/08/20 10:12 06/08/20 10:25 Saline Flush FLUSH 10 ml ASDIRECTED PRN Administration Keep Vein Open Sodium Chloride 30 ml 06/08/20 13:30 06/08/20 14:10 Saline Flush FLUSH 30 ml ASDIRECTED JOHNNIE Administration Discontinued Medications Generic Name Dose Route Start Last Admin Trade Name Freq PRN Reason Stop Dose Admin Gadobenate Dimeglumine 20 ml 06/08/20 13:20 06/08/20 14:09 Multihance IVPUSH 06/08/20 13:21 20 ml ONETIME ONE Administration Meclizine HCl 25 mg 06/08/20 11:45 06/08/20 12:37 Antivert PO 06/08/20 11:46 25 mg ONETIME ONE Administration - Re-Assessments/Exams Free Text/Narrative Re-Assessment/Exam: 06/08/20 12:32 I ordered an EKG, CT of his head and labs. His EKG shows a NSR with no acute changes. His head CT shows senescent change. Nothing acute is definitely appreciated on noncontrast head CT study. His labs look good. He said he has a little dizziness so I ordered some antivert. I called Dr Zaragoza at [facility] in [place] and she recommended an MRI be done. They have an opening so I ordered an MRI. 06/08/20 15:06 MR angiogram of the neck shows normal variant believed to be present within the distal right vertebral artery. MR angiogram of the neck is otherwise unremarkable. The MR angiogram of the brain shows no abnormality is appreciated on MR angiogram study of the brain. MRI of the brain shows minimal senescent change. No acute diffusion abnormalities are appreciated. Other findings as noted above. I called Dr Zaragoza back and let her know the results. She took his name and will get him a follow up appointment. Departure - Departure Time of Disposition: 15:15 Disposition: Home, Self-Care 01 Condition: Good Clinical Impression: TIA (transient ischemic attack) - Discharge Information *PRESCRIPTION DRUG MONITORING PROGRAM REVIEWED*: Not Applicable *COPY OF PRESCRIPTION DRUG MONITORING REPORT IN PATIENT TAYLOR: Not Applicable Referrals: Samantha Barnes PA-C [Primary Care Provider] - Ashley Zaragoza MD [Ordering Only Provider] - 1 Week Forms: ED Department Discharge Additional Instructions: Take your medication as prescribed. Follow up with Dr Zaragoza. Someone from her office will call you. If you do not hear from her by tomorrow please call her office. Please return if you are worse. Sepsis Event Note (ED) - Evaluation Sepsis Screening Result: No Definite Risk - Focused Exam Vital Signs: Vital Signs Temp Pulse Resp BP Pulse Ox 06/08/20 10:10 97.9 F 74 18 102/60 88 L - My Orders Last 24 Hours: My Active Orders 06/08/20 10:12 Cardiac Monitoring [RC] . DIRECTED Sodium Chloride 0.9% [Saline Flush] 10 ml FLUSH ASDIRECTED PRN Peripheral IV Insertion Adult [OM.PC] Stat 06/08/20 10:14 EKG Documentation Completion [RC] STAT Peripheral IV Care [RC] . DIRECTED 06/08/20 13:30 Sodium Chloride 0.9% [Saline Flush] 30 ml FLUSH ASDIRECTED - Assessment/Plan Last 24 Hours: My Active Orders 06/08/20 10:12 Cardiac Monitoring [RC] . DIRECTED Sodium Chloride 0.9% [Saline Flush] 10 ml FLUSH ASDIRECTED PRN Peripheral IV Insertion Adult [OM.PC] Stat 06/08/20 10:14 EKG Documentation Completion [RC] STAT Peripheral IV Care [RC] . DIRECTED 06/08/20 13:30 Sodium Chloride 0.9% [Saline Flush] 30 ml FLUSH ASDIRECTED
[2020-06-08] MEDS ORDERED: Gadobenate Dimeglumine 529 MG/ML 20 ML SDV IVPUSH ONE (13:20)
[2020-06-08] MEDS ORDERED: Sodium Chloride 0.9% 10 ML Syringe FLUSH SCH (13:30)
--- NOTE | 2020-06-08 13:59 | MR ---
MR angiogram of brain Technique: [id number] MR angiogram study was obtained centered to the [place]. Multiple MIP images were obtained in multiple projections. Findings: Distal internal carotid arteries are patent. Basilar artery is patent. Anterior, middle and posterior cerebral appear patent. No focal occlusion or narrowing is seen. No discrete aneurysm is appreciated. Impression: 1. No abnormality is appreciated on MR angiogram study of the brain. Diagnostic code #1 This report was dictated in MDT
--- NOTE | 2020-06-08 14:03 | MR ---
MRI brain (without and with intravenous contrast) Technique: T1 sagittal; T2, T2 FLAIR, T1 and diffusion axial; T1 and T2 gradient echo coronal images were obtained of the brain. Postcontrast T1 axial and T1 coronal images were obtained. Comparison: Prior head CT study performed earlier on the same day (10:12 AM). Findings: Ventricles along with basal cisterns and sulci over the convexities are mildly prominent. Minimal areas of increased signal are scattered within the periventricular white matter most likely representing minimal small vessel ischemic demyelination change. No other abnormal signal is seen within the brain parenchyma. No acute diffusion abnormalities are appreciated. No abnormal areas of enhancement are seen. Hypoplastic right maxillary sinus is seen compared to the left side. Impression: 1. Minimal senescent change as noted above. 2. No acute diffusion abnormalities are appreciated. 3. Other finding as noted above which is believed to be incidental. Diagnostic code #2 This report was dictated in MDT
--- NOTE | 2020-06-08 14:33 | MR ---
MR angiogram of neck Technique: Postcontrast MR angiogram of the neck was obtained with multiple MIP images also being obtained. Findings: Common carotid arteries are patent on both sides. Both vertebral arteries are patent. Narrowing is noted of the distal right vertebral artery which I feel is a normal variant. Vertebral arteries are otherwise patent. Internal carotid arteries and proximal external carotid arteries are patent. Impression: 1. Normal variant believed to be present within the distal right vertebral artery. 2. MR angiogram of the neck is otherwise unremarkable. Diagnostic code #2 This report was dictated in MDT
[2020-06-08 15:40] VITALS: BP 109/66; PULSE 60
== END 2020-06-08 15:25 | disposition home or self-care (01) ==
LOC: JD.ED 10:08
DX: G45.9 Transient cerebral ischemic attack, unspecified (principal); E03.9 Hypothyroidism, unspecified; E66.9 Obesity, unspecified; I48.91 Unspecified atrial fibrillation; E78.00 Pure hypercholesterolemia, unspecified; I25.2 Old myocardial infarction; Z79.899 Other long term (current) drug therapy; Z88.1 Allergy status to other antibiotic agents; Z88.5 Allergy status to narcotic agent; Z88.8 Allergy status to other drugs, medicaments and biological substances; Z90.49 Acquired absence of other specified parts of digestive tract; Z98.890 Other specified postprocedural states
CPT/HCPCS: 36415; 70450; 70544; 70548; 70553; 80053; 82962; 84484; 85025; 85610; 85730; 93005; 99285; A9270; A9577; 93010; 99284

== ENCOUNTER 2020-09-08 06:23 | Day surgery (SDC) | payer MEDICARE, BC ==
[~2020-09-08 06:23] MED LIST: Lactated Ringers 1,000 ML IV SCH; Lidocaine 1%/Sod Bicarbonate in NS 8.4% 1 ML Syringe IDERM PRN; Sodium Chloride 0.9% 10 ML Syringe FLUSH PRN
[2020-09-08] MEDS ORDERED: Lidocaine 1% 30 ML SDV ONE (06:46)
[2020-09-08] MEDS ORDERED: Triamcinolone Acetonide 40 MG/ML 1 ML SDV ONE (06:52)
[2020-09-08] MEDS ORDERED: Lactated Ringers 1,000 ML IV SCH (07:00)
[2020-09-08] MEDS ORDERED: Lidocaine 1%/Sod Bicarbonate in NS 8.4% 1 ML Syringe IDERM PRN (07:00)
[2020-09-08] MEDS ORDERED: Sodium Chloride 0.9% 10 ML Syringe FLUSH PRN (07:00)
[2020-09-08] MEDS: Bupivacaine 0.25% 10 ML SDV ONE ×2 (07:18→07:27)
[2020-09-08 07:44] VITALS: BP 140/90; PULSE 64
--- NOTE | 2020-09-23 12:50 | PCM.OPNOTE ---
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
--- NOTE | 2020-09-23 13:20 | OR ---
DATE OF OPERATION: 09/08/2020 SURGEON: eKi Shahid MD OPERATION PERFORMED: Right middle finger A1 deysi release with right middle finger metacarpophalangeal joint injection. 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 ANESTHESIA: Local only. BEEKEEPER: Dee Carmen PA-C ESTIMATED FLUID LOSS: Less than 5 mL. COMPLICATIONS: None. CONDITION: Stable. DESCRIPTION OF PROCEDURE: The patient was identified in the preoperative holding area where the proper site was marked and identified by the surgeon. The patient was taken back to the operative theater where the patient's right upper extremity was then sterilely prepped and draped in the usual sterile fashion. OR time-out was performed. The patient did not receive antibiotics as it was not indicated for soft tissue hand procedure. At this time, 1% lidocaine without epinephrine and 0.25% Marcaine without epinephrine were then used to anesthetize the transverse incision area over the A1 deysi. A transverse incision was then made. Blunt dissection was taken down to the A1 deysi. Ragnell retractors protected the neurovascular bundles. At this time, with the use of a Dickenson blade, the A1 deysi was resected both proximally and distally, making sure to stop short of the A2 deysi. The tendon was then brought through the wound bed and was found to have no signs of tendinous adhesions. Adequate saline was then irrigated through the wound. 4-0 nylon suture was used for closure of the skin, and then, under sterile technique, 0.5 mL of 40 mg Kenalog and 0.5 mL of 0.25% Marcaine were injected into the 3rd finger MCP joint. The patient tolerated all procedures well and sent back in stable condition. ESTIMATED BLOOD LOSS: MMODAL /[id number]
== END 2020-09-08 08:01 | disposition home or self-care (01) ==
LOC: JD.SDS 06:23
PROVIDERS: ATTEND Orthopaedic Surgery
DX: M65.841 Other synovitis and tenosynovitis, right hand (principal); M19.041 Primary osteoarthritis, right hand; Z01.812 Encounter for preprocedural laboratory examination; Z20.828 Contact with and (suspected) exposure to other viral communicable diseases
CPT/HCPCS: 20600; 26055; 87641; J2001; J3301; J3490; U0002

== ENCOUNTER 2021-03-27 08:43 | Day surgery (SDC) | payer MEDICARE, BC ==
[2021-03-27] MEDS ORDERED: Sodium Chloride 0.9% 1,000 ML IV ONE ×2 (09:22→11:06)
--- NOTE | 2021-03-27 09:22 | EDM.PDOC ---
ED HPI GENERAL MEDICAL PROBLEM - General Chief Complaint: Abdominal Pain Stated Complaint: ABDOMINAL PAIN Time Seen by Provider: 03/27/21 09:01 Source of Information: Reports: Patient History Limitations: Reports: No Limitations - History of Present Illness INITIAL COMMENTS - FREE TEXT/NARRATIVE: Presents with right lower quadrant pain. Started yet Saturday afternoon. Persisted he is not had any appetite he did not really eat anything except for little soup last evening. Pain is crampy becoming more constant been trying to sleep and rest but has had increasing pain off and on with it. No vomiting initially thought he was constipated took some laxatives on Saturday and had a bowel movement but did not seem to make any difference with the pain. No pain that radiating into the testicle or groin no flank pain associated with it worse with movement better at rest. Denies any obvious fevers chills or sweats no coughing cold symptoms or chest pain no breathing difficulty no palpitations history of atrial fibrillation requiring ablation he is however on Eliquis and he took his last dose this morning otherwise only had some water with his pills this morning and last meal was soup was last night. 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 RLQ Pain Score (Numeric/FACES): 7 - Related Data Allergies Allergy/AdvReac Type Severity Reaction Status Date / Time cephalexin [From Keflex] Allergy Rash Verified 03/27/21 09:00 chlorhexidine Allergy Rash Verified 03/27/21 09:00 codeine Allergy Rash Verified 03/27/21 09:00 Home Meds: Home Meds Krill/Om-3/DHA/EPA/Phospho/Ast [Krill Oil 1,000 mg Softgel] 2 tab PO DAILY 11/25/16 [History] Loratadine [Claritin] 10 mg PO DAILY 11/25/16 [History] Multivitamin [Multivitamins] 1 tab PO DAILY 11/25/16 [History] Apixaban [Eliquis] 5 mg PO BID 06/08/20 [History] Aspirin 81 mg PO DAILY 09/07/20 [History] Cyclobenzaprine [Flexeril] 10 mg PO BID PRN 09/07/20 [History] Levothyroxine Sodium [Levoxyl] 137 mcg PO DAILY 09/07/20 [History] Methylphenidate [Metadate ER] 10 mg PO DAILY 09/07/20 [History] Pravastatin [Pravachol] 20 mg PO DAILY 09/07/20 [History] Tadalafil [Cialis] 20 mg PO ASDIRECTED PRN 09/07/20 [History] Ubidecarenone [Coq-10] 100 mg PO DAILY 09/07/20 [History] traMADol [Ultram] 50 mg PO TID PRN 09/07/20 [History] Acetaminophen/HYDROcodone [[place] 325-5 MG] 1 - 2 tab PO Q6H PRN #10 tablet 09/08/20 [Rx] Past Medical History Other HEENT History: Lasik Cardiovascular History: Reports: Afib, Aneurysm, High Cholesterol, SC Other Cardiovascular History: 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 herniated disc 1986. discs were pinching spinal cord 2015. rib fractures Neurological History: Reports: Other (See Below) Other Neuro History: dizziness, intervetebral disc stenosis Psychiatric History: Reports: Other (See Below) Other Psychiatric History: narcolepsy Endocrine/Metabolic History: Reports: Hypothyroidism, Obesity/BMI 30+ Hematologic History: Reports: None Immunologic History: Reports: None Oncologic (Cancer) History: Reports: None Dermatologic History: Reports: Cellulitis Other Dermatologic History: Has had a few moles and areas of skin removed in ca se it is cancerous. 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 Implant in upper right to hold in 4 teeth. Cardiovascular Surgical History: Reports: Other (See Below) Other Cardiovascular Surgeries/Procedures: ablationx2, defibrillation Respiratory Surgical History: Reports: None GI Surgical History: Reports: Colonoscopy, Hernia, Inguinal, Hernia Repair/Other Other GI Surgeries/Procedures: 3 hernia repairs. colonoscopy a few years ago Male Surgical History: Reports: None Endocrine Surgical History: Reports: None Neurological Surgical History: Reports: Lumbar Spine Musculoskeletal Surgical History: Reports: Amputation, Other (See Below) Other Musculoskeletal Surgeries/Procedures:: torn bicep tendon, bone spurs in neck removed, finger amputation Oncologic Surgical History: Reports: None Dermatological Surgical History: Reports: Skin Biopsy Social & Family History - Family History Family Medical History: No Pertinent Family History Neurological: Reports: Alzheimers Disease Other Oncologic Family History: father had cancer - Tobacco Use Tobacco Use Status *Q: Never Tobacco User - Caffeine Use Caffeine Use: Reports: Soda - Recreational Drug Use Recreational Drug Use: No - Living Situation & Occupation Living situation: Reports: , with Spouse Occupation: Employed ([employer]) ED ROS GENERAL - Review of Systems Review Of Systems: See Below Constitutional: Denies: Fever, Chills, Night Sweats, Diaphoresis HEENT: Denies: Rhinitis, Throat Pain Respiratory: Denies: Shortness of Breath, Cough Cardiovascular: Denies: Chest Pain, Lightheadedness, Palpitations GI/Abdominal: Reports: Abdominal Pain, Anorexia, Decreased Appetite. Denies: Constipation, Diarrhea, Nausea, Vomiting : Denies: Dysuria, Frequency, Hematuria Musculoskeletal: Denies: Back Pain Skin: Reports: No Symptoms Neurological: Reports: No Symptoms. Denies: Headache Psychiatric: Reports: No Symptoms ED EXAM, GI/ABD - Physical Exam Exam: See Below Exam Limited By: No Limitations General Appearance: Alert, WD/WN, No Apparent Distress, Mild Distress Throat/Mouth: Normal Oropharynx Head: Atraumatic Respiratory/Chest: No Respiratory Distress, Lungs Clear Cardiovascular: Normal Peripheral Pulses, Regular Rate, Rhythm, No Edema GI/Abdominal Exam: No Mass, Distended, Rebound, Tender, Other (Pain in the right lower quadrant with raw for 6 tenderness, some mild rebound tenderness no guarding or rigidity) Extremities: Normal Inspection, No Pedal Edema Neurological: Alert, Oriented Psychiatric: Normal Affect Course - Vital Signs Text/Narrative:: Rule out acute appendicitis, diverticulitis, renal colic, urinary tract infection, seems unlikely bowel obstruction or cardiac etiology. Last Recorded V/S: Last Vital Signs Temp 99.3 F 03/27/21 08:56 Pulse 71 03/27/21 08:56 Resp 18 03/27/21 08:56 BP 122/80 03/27/21 08:56 Pulse Ox 94 L 03/27/21 08:56 - Orders/Labs/Meds Orders: Active Orders 24 hr Category Date Time Status NPO Now [Nothing per Oral Now Diet] [DIET] Diet 03/27/21 Dinner Active Levofloxacin/Dextrose 5%-Water [Levaquin in D5W 500 MG/ Med 03/27/21 11:09 Active 100 ML] 500 mg Premix Bag 1 bag IV ONETIME Sodium Chloride 0.9% [Normal Saline] 1,000 ml Med 03/27/21 11:06 Active IV ONETIME Sodium Chloride 0.9% [Saline Flush] Med 03/27/21 09:27 Active 10 ml FLUSH ONETIME PRN metroNIDAZOLE/Normal Saline [Flagyl in NS 500 MG/100 ML Med 03/27/21 11:02 Active ] 500 mg Premix Bag 1 bag IV ONETIME Medication Orders Metronidazole 500 mg/ Premix 100 mls @ 100 mls/hr IV ONETIME ONE Stop: 03/27/21 12:01 Last Admin: 03/27/21 11:19 Dose: 100 mls/hr Documented by: BELL Sodium Chloride (Normal Saline) 1,000 mls @ 999 mls/hr IV ONETIME ONE Stop: 03/27/21 12:06 Last Admin: 03/27/21 11:18 Dose: 999 mls/hr Documented by: BELL Levofloxacin/Dextrose 500 mg/ (Premix) 100 mls @ 100 mls/hr IV ONETIME ONE Stop: 03/27/21 12:08 Sodium Chloride (Sodium Chloride 0.9% 10 Ml Syringe) 10 ml FLUSH ONETIME PRN PRN Reason: IV FLUSH Last Admin: 03/27/21 10:38 Dose: 10 ml Documented by: Admin: 03/27/21 09:56 Dose: 10 ml Documented by: BELL Labs: Laboratory Tests 03/27/21 03/27/21 03/27/21 Range/Units 09:45 09:45 09:45 WBC 17.11 H (4.23-9.07) K/mm3 RBC 5.36 (4.63-6.08) M/mm3 Hgb 15.0 (13.7-17.5) gm/dl Hct 45.2 (40.1-51.0) % MCV 84.3 (79.0-92.2) fl MCH 28.0 (25.7-32.2) pg MCHC 33.2 (32.2-35.5) g/dl RDW Std Deviation 47.9 H (35.1-43.9) fL Plt Count 191 D (163-337) K/mm3 MPV 11.0 (9.4-12.3) fl Neut % (Auto) 77.4 H (34.0-67.9) % Lymph % (Auto) 10.5 L (21.8-53.1) % [place] % (Auto) 11.5 (5.3-12.2) % Eos % (Auto) 0.1 L (0.8-7.0) Baso % (Auto) 0.3 (0.1-1.2) % Neut # (Auto) 13.23 H (1.78-5.38) K/mm3 Lymph # (Auto) 1.80 (1.32-3.57) K/mm3 [place] # (Auto) 1.97 H (0.30-0.82) K/mm3 Eos # (Auto) 0.02 L (0.04-0.54) K/mm3 Baso # (Auto) 0.05 (0.01-0.08) K/mm3 Manual Slide Review Normal smear PT 12.7 H (9.7-12.0) SECONDS INR 1.19 Sodium 140 (136-145) mEq/L Potassium 3.6 (3.5-5.1) mEq/L Chloride 102 (98-107) mEq/L Carbon Dioxide 27 (21-32) mEq/L Anion Gap 14.6 (5-15) BUN 16 (7-18) mg/dL Creatinine 1.3 (0.7-1.3) mg/dL Est Cr Clr Drug Dosing 57.83 mL/min Estimated GFR (MDRD) 55 (>60) mL/min BUN/Creatinine Ratio 12.3 L (14-18) Glucose 121 H (70-99) mg/dL Calcium 8.2 L (8.5-10.1) mg/dL Total Bilirubin 1.3 H (0.2-1.0) mg/dL AST 21 (15-37) U/L ALT 35 (16-63) U/L Alkaline Phosphatase 66 (46-116) U/L C-Reactive Protein 28.2 H* (<1.0) mg/dL Total Protein 7.0 (6.4-8.2) g/dl Albumin 3.3 L (3.4-5.0) g/dl Globulin 3.7 gm/dL Albumin/Globulin Ratio 0.9 L (1-2) Lipase 73 (73-393) U/L Urine Color (Yellow) Urine Appearance (Clear) Urine pH (5.0-8.0) Ur Specific [place] (1.005-1.030) Urine Protein (Negative) Urine Glucose (UA) (Negative) Urine Ketones (Negative) Urine Occult Blood (Negative) Urine Nitrite (Negative) Urine Bilirubin (Negative) Urine Urobilinogen (0.2-1.0) Ur Leukocyte Esterase (Negative) Urine RBC (0-5) /hpf Urine WBC (0-5) /hpf Ur Squamous Epith Cells (0-5) /hpf Amorphous Sediment (NOT SEEN) /hpf Urine Bacteria (FEW) /hpf Urine Mucus (FEW) /hpf 03/27/21 Range/Units 09:56 WBC (4.23-9.07) K/mm3 RBC (4.63-6.08) M/mm3 Hgb (13.7-17.5) gm/dl Hct (40.1-51.0) % MCV (79.0-92.2) fl MCH (25.7-32.2) pg MCHC (32.2-35.5) g/dl RDW Std Deviation (35.1-43.9) fL Plt Count (163-337) K/mm3 MPV (9.4-12.3) fl Neut % (Auto) (34.0-67.9) % Lymph % (Auto) (21.8-53.1) % [place] % (Auto) (5.3-12.2) % Eos % (Auto) (0.8-7.0) Baso % (Auto) (0.1-1.2) % Neut # (Auto) (1.78-5.38) K/mm3 Lymph # (Auto) (1.32-3.57) K/mm3 [place] # (Auto) (0.30-0.82) K/mm3 Eos # (Auto) (0.04-0.54) K/mm3 Baso # (Auto) (0.01-0.08) K/mm3 Manual Slide Review PT (9.7-12.0) SECONDS INR Sodium (136-145) mEq/L Potassium (3.5-5.1) mEq/L Chloride (98-107) mEq/L Carbon Dioxide (21-32) mEq/L Anion Gap (5-15) BUN (7-18) mg/dL Creatinine (0.7-1.3) mg/dL Est Cr Clr Drug Dosing mL/min Estimated GFR (MDRD) (>60) mL/min BUN/Creatinine Ratio (14-18) Glucose (70-99) mg/dL Calcium (8.5-10.1) mg/dL Total Bilirubin (0.2-1.0) mg/dL AST (15-37) U/L ALT (16-63) U/L Alkaline Phosphatase (46-116) U/L C-Reactive Protein (<1.0) mg/dL Total Protein (6.4-8.2) g/dl Albumin (3.4-5.0) g/dl Globulin gm/dL Albumin/Globulin Ratio (1-2) Lipase (73-393) U/L Urine Color Yellow (Yellow) Urine Appearance Clear (Clear) Urine pH 6.0 (5.0-8.0) Ur Specific [place] > or = 1.030 (1.005-1.030) Urine Protein 2+ H (Negative) Urine Glucose (UA) Negative (Negative) Urine Ketones Trace H (Negative) Urine Occult Blood 1+ H (Negative) Urine Nitrite Negative (Negative) Urine Bilirubin 1+ H (Negative) Urine Urobilinogen 0.2 (0.2-1.0) Ur Leukocyte Esterase Negative (Negative) Urine RBC 5-10 H (0-5) /hpf Urine WBC 0-5 (0-5) /hpf Ur Squamous Epith Cells 0-5 (0-5) /hpf Amorphous Sediment Few H (NOT SEEN) /hpf Urine Bacteria Few (FEW) /hpf Urine Mucus Many H (FEW) /hpf White blood cell count 17,000 hemoglobin 15 hematocrit 45.2 platelet count is 191 INR 1.1 sodium 140 potassium 3.6 chloride 102 CO2 is 27 BUN 16 creatinine 1.3 GFR 55 glucose is 121 calcium 8.2 total bili 1.3 C-reactive protein 28 LFTs are normal urinalysis shows a spec graph 1.030 pH 61+ blood 1+ bilirubin 5-10 red blood cells Parpart field few bacteria positive mucus Meds: Medications Generic Name Dose Route Start Last Admin Trade Name Donte PRN Reason Stop Dose Admin Metronidazole 500 mg/ Premix 100 mls @ 100 mls/hr 03/27/21 11:02 03/27/21 11:19 IV 03/27/21 12:01 100 mls/hr ONETIME ONE Administration Sodium Chloride 1,000 mls @ 999 mls/hr 03/27/21 11:06 03/27/21 11:18 Normal Saline IV 03/27/21 12:06 999 mls/hr ONETIME ONE Administration Levofloxacin/Dextrose 500 mg/ 100 mls @ 100 mls/hr 03/27/21 11:09 Premix IV 03/27/21 12:08 ONETIME ONE Sodium Chloride 10 ml 03/27/21 09:27 03/27/21 10:38 Sodium Chloride 0.9% 10 Ml Syringe FLUSH 10 ml ONETIME PRN Administration IV FLUSH Discontinued Medications Generic Name Dose Route Start Last Admin Trade Name Donte PRN Reason Stop Dose Admin Diatrizoate Meglum/Diatrizoate Sod 120 ml 03/27/21 09:27 03/27/21 10:38 Diatrizoate Meglumine/Diatrizoate Sodium 37% 120 Ml Bottle PO 03/27/21 09:28 30 ml ONETIME ONE Administration Sodium Chloride 1,000 mls @ 999 mls/hr 03/27/21 09:22 03/27/21 09:55 Normal Saline IV 03/27/21 10:22 999 mls/hr ONETIME ONE Administration Iopamidol 50 ml 03/27/21 09:27 Iopamidol 612 Mg/Ml 50 Ml Sdv IVPUSH 03/27/21 09:28 ONETIME ONE Iopamidol 100 ml 03/27/21 09:27 03/27/21 10:38 Iopamidol 612 Mg/Ml 100 Ml Bottle IVPUSH 03/27/21 09:28 100 ml ONETIME ONE Administration - Radiology Interpretation Free Text/Narrative:: CT abdomen pelvis with contrast demonstrates some mild fatty infiltration normal pancreas within normal limits kidneys show symmetric contrast enhancement nonobstructing calculi in both kidneys aorta with some atherosclerotic calcification no aneurysm surgical clips noted left inguinal region appendix however is enlarged and findings feel compatible with acute appendicitis with some inflammatory changes no rupture or pelvic free fluid CT Results Date: 03/27/21 CT Results Time: 10:53 - Re-Assessments/Exams Free Text/Narrative Re-Assessment/Exam: 03/27/21 11:48 Patient has been resting comfortably but does not want any pain medication at present. I discussed the case with general surgeon, Dr. Shelton and she is almost finished in clinic will be in to evaluate the patient patient is allergic to Keflex we will treat him with Levaquin Flagyl, n.p.o. Departure - Departure Disposition: Admitted As Inpatient 65 Condition: Fair Clinical Impression: Appendicitis Qualifiers: Appendicitis type: acute appendicitis Acute appendicitis type: with localized peritonitis Appendicitis gangrene presence: without gangrene Appendicitis perforation presence: without perforation Appendicitis abscess presence: unspecified whether abscess present Qualified Code(s): K35.30 - Acute appendicitis with localized peritonitis, without perforation or gangrene - Discharge Information Referrals: Samantha Barnes PA-C [Primary Care Provider] - Forms: ED Department Discharge Sepsis Event Note (ED) - Evaluation Sepsis Screening Result: No Definite Risk - Focused Exam Vital Signs: Vital Signs Temp Pulse Resp BP Pulse Ox 03/27/21 08:56 99.3 F 71 18 122/80 94 L - My Orders Last 24 Hours: My Active Orders 03/27/21 09:27 Sodium Chloride 0.9% [Saline Flush] 10 ml FLUSH ONETIME PRN 03/27/21 11:02 metroNIDAZOLE/Normal Saline [Flagyl in NS 500 MG/100 ML] 500 mg Premix Bag 1 bag IV ONETIME 03/27/21 11:06 Sodium Chloride 0.9% [Normal Saline] 1,000 ml IV ONETIME 03/27/21 11:09 Levofloxacin/Dextrose 5%-Water [Levaquin in D5W 500 MG/100 ML] 500 mg Premix Bag 1 bag IV ONETIME 03/27/21 Dinner NPO Now [Nothing per Oral Now Diet] [DIET] - Assessment/Plan Last 24 Hours: My Active Orders 03/27/21 09:27 Sodium Chloride 0.9% [Saline Flush] 10 ml FLUSH ONETIME PRN 03/27/21 11:02 metroNIDAZOLE/Normal Saline [Flagyl in NS 500 MG/100 ML] 500 mg Premix Bag 1 bag IV ONETIME 03/27/21 11:06 Sodium Chloride 0.9% [Normal Saline] 1,000 ml IV ONETIME 03/27/21 11:09 Levofloxacin/Dextrose 5%-Water [Levaquin in D5W 500 MG/100 ML] 500 mg Premix Bag 1 bag IV ONETIME 03/27/21 Dinner NPO Now [Nothing per Oral Now Diet] [DIET]
[2021-03-27] MEDS ORDERED: Diatrizoate Meglumine/Diatrizoate Sodium 37% 120 ML Bottle PO ONE (09:27)
[2021-03-27] MEDS ORDERED: Iopamidol 612 MG/ML 50 ML SDV IVPUSH ONE (09:27)
[2021-03-27] MEDS ORDERED: Iopamidol 612 MG/ML 100 ML Bottle IVPUSH ONE (09:27)
[2021-03-27] MEDS: Sodium Chloride 0.9% 10 ML Syringe FLUSH PRN ×2 (09:56→10:38)
--- NOTE | 2021-03-27 10:56 | CT ---
CT abdomen and pelvis Technique: Multiple axial sections were obtained from above the dome of the diaphragm inferiorly through the pubic symphysis. Intravenous and oral contrast was utilized. Reconstructed coronal and sagittal images were obtained. Comparison: Prior CT abdomen and pelvis study of 01/21/20. Findings: Inflammatory change is identified within the right lower abdomen. Appendix appears enlarged and findings are felt compatible with appendicitis. Visualized lung bases show nothing acute. Liver shows mild fatty infiltration. No focal abnormality is appreciated within the liver. Spleen size is normal. Adrenal glands show no nodule. Pancreas shows no discrete abnormality. Kidneys show symmetric contrast enhancement with no hydronephrosis or mass being seen. Several small nonobstructing calculi are seen within both kidneys. Small cyst is noted within the right kidney measuring 2.2 cm. Abdominal aorta shows atherosclerotic calcification with no aneurysm. No retroperitoneal adenopathy or other mesenteric abnormalities are seen. Surgical clips are seen within the left inguinal region. No additional pelvic abnormality is appreciated. Bone window settings were reviewed which show scattered degenerative change within the thoracic and lumbar spine with disc space narrowing and vacuum phenomena. Degenerative endplate sclerosis is seen at L5-S1. Scattered degenerative apophyseal change is also seen. Impression: 1. Findings compatible with appendicitis. 2. Other nonacute findings as noted above. Diagnostic code #5
[2021-03-27] MEDS ORDERED: metroNIDAZOLE/Normal Saline 500 MG in Premix Bag 1 BAG IV ONE (11:02)
[2021-03-27] MEDS ORDERED: Levofloxacin/Dextrose 5%-Water 500 MG in Premix Bag 1 BAG IV ONE (11:09)
[2021-03-27] MEDS ORDERED: Lidocaine 1% with EPINEPHrine 1:100,000 10 ML MDV ONE (13:09)
[2021-03-27] MEDS ORDERED: Bupivacaine 0.5%/EPINEPHrine 1:200,000 50 ML MDV ONE (13:09)
--- NOTE | 2021-03-27 13:11 | PCM.PREANE ---
Preanesthetic Assessment - Procedure Proposed Procedure: lap appy - Anesthesia/Transfusion/Family Hx Anesthesia History: Prior Anesthesia Without Reaction Family History of Anesthesia Reaction: No Transfusion History: No Prior Transfusion(s) - Review of Systems General: Fever, Chills Pulmonary: No Symptoms Cardiovascular: No Symptoms Gastrointestinal: Abdominal Pain (started saturday 4 pm) Neurological: No Symptoms Other: Reports: None, Thyroid Problems - Physical Assessment NPO Status Date: 03/27/21 NPO Status Time: 08:00 (also drank po ct fluid 1000) Vital Signs: Last Vital Signs Temp 99.3 F 03/27/21 08:56 Pulse 71 03/27/21 08:56 Resp 18 03/27/21 08:56 BP 122/80 03/27/21 08:56 Pulse Ox 94 L 03/27/21 08:56 Height: 5 ft 10.5 in Weight: 114.804 kg ASA Class: 2E Mental Status: Alert & Oriented x3 Airway Class: Mallampati = 1 Dentition: Reports: Normal Dentition Thyro-Mental Finger Breadths: 3 Mouth Opening Finger Breadths: 3 Lungs: Clear to Auscultation, Normal Respiratory Effort Cardiovascular: Regular Rate, Regular Rhythm - Lab Values: Laboratory Last Values WBC 17.11 K/mm3 (4.23-9.07) H 03/27/21 09:45 RBC 5.36 M/mm3 (4.63-6.08) 03/27/21 09:45 Hgb 15.0 gm/dl (13.7-17.5) 03/27/21 09:45 Hct 45.2 % (40.1-51.0) 03/27/21 09:45 MCV 84.3 fl (79.0-92.2) 03/27/21 09:45 MCH 28.0 pg (25.7-32.2) 03/27/21 09:45 MCHC 33.2 g/dl (32.2-35.5) 03/27/21 09:45 RDW Std Deviation 47.9 fL (35.1-43.9) H 03/27/21 09:45 Plt Count 191 K/mm3 (163-337) D 03/27/21 09:45 MPV 11.0 fl (9.4-12.3) 03/27/21 09:45 Neut % (Auto) 77.4 % (34.0-67.9) H 03/27/21 09:45 Lymph % (Auto) 10.5 % (21.8-53.1) L 03/27/21 09:45 [place] % (Auto) 11.5 % (5.3-12.2) 03/27/21 09:45 Eos % (Auto) 0.1 (0.8-7.0) L 03/27/21 09:45 Baso % (Auto) 0.3 % (0.1-1.2) 03/27/21 09:45 Neut # (Auto) 13.23 K/mm3 (1.78-5.38) H 03/27/21 09:45 Lymph # (Auto) 1.80 K/mm3 (1.32-3.57) 03/27/21 09:45 [place] # (Auto) 1.97 K/mm3 (0.30-0.82) H 03/27/21 09:45 Eos # (Auto) 0.02 K/mm3 (0.04-0.54) L 03/27/21 09:45 Baso # (Auto) 0.05 K/mm3 (0.01-0.08) 03/27/21 09:45 Manual Slide Review Normal smear 03/27/21 09:45 PT 12.7 SECONDS (9.7-12.0) H 03/27/21 09:45 INR 1.19 03/27/21 09:45 Sodium 140 mEq/L (136-145) 03/27/21 09:45 Potassium 3.6 mEq/L (3.5-5.1) 03/27/21 09:45 Chloride 102 mEq/L (98-107) 03/27/21 09:45 Carbon Dioxide 27 mEq/L (21-32) 03/27/21 09:45 Anion Gap 14.6 (5-15) 03/27/21 09:45 BUN 16 mg/dL (7-18) 03/27/21 09:45 Creatinine 1.3 mg/dL (0.7-1.3) 03/27/21 09:45 Est Cr Clr Drug Dosing 57.83 mL/min 03/27/21 09:45 Estimated GFR (MDRD) 55 mL/min (>60) 03/27/21 09:45 BUN/Creatinine Ratio 12.3 (14-18) L 03/27/21 09:45 Glucose 121 mg/dL (70-99) H 03/27/21 09:45 Calcium 8.2 mg/dL (8.5-10.1) L 03/27/21 09:45 Total Bilirubin 1.3 mg/dL (0.2-1.0) H 03/27/21 09:45 AST 21 U/L (15-37) 03/27/21 09:45 ALT 35 U/L (16-63) 03/27/21 09:45 Alkaline Phosphatase 66 U/L (46-116) 03/27/21 09:45 C-Reactive Protein 28.2 mg/dL (<1.0) H* 03/27/21 09:45 Total Protein 7.0 g/dl (6.4-8.2) 03/27/21 09:45 Albumin 3.3 g/dl (3.4-5.0) L 03/27/21 09:45 Globulin 3.7 gm/dL 03/27/21 09:45 Albumin/Globulin Ratio 0.9 (1-2) L 03/27/21 09:45 Lipase 73 U/L (73-393) 03/27/21 09:45 Urine Color Yellow (Yellow) 03/27/21 09:56 Urine Appearance Clear (Clear) 03/27/21 09:56 Urine pH 6.0 (5.0-8.0) 03/27/21 09:56 Ur Specific [place] > or = 1.030 (1.005-1.030) 03/27/21 09:56 Urine Protein 2+ (Negative) H 03/27/21 09:56 Urine Glucose (UA) Negative (Negative) 03/27/21 09:56 Urine Ketones Trace (Negative) H 03/27/21 09:56 Urine Occult Blood 1+ (Negative) H 03/27/21 09:56 Urine Nitrite Negative (Negative) 03/27/21 09:56 Urine Bilirubin 1+ (Negative) H 03/27/21 09:56 Urine Urobilinogen 0.2 (0.2-1.0) 03/27/21 09:56 Ur Leukocyte Esterase Negative (Negative) 03/27/21 09:56 Urine RBC 5-10 /hpf (0-5) H 03/27/21 09:56 Urine WBC 0-5 /hpf (0-5) 03/27/21 09:56 Ur Squamous Epith Cells 0-5 /hpf (0-5) 03/27/21 09:56 Amorphous Sediment Few /hpf (NOT SEEN) H 03/27/21 09:56 Urine Bacteria Few /hpf (FEW) 03/27/21 09:56 Urine Mucus Many /hpf (FEW) H 03/27/21 09:56 - Allergies Allergies/Adverse Reactions: Allergies Allergy/AdvReac Type Severity Reaction Status Date / Time cephalexin [From Keflex] Allergy Rash Verified 03/27/21 09:00 chlorhexidine Allergy Rash Verified 03/27/21 09:00 codeine Allergy Rash Verified 03/27/21 09:00 - Blood Blood Available: No - Acknowledgements Anesthesia Type Planned: General Anesthesia Pt an Appropriate Candidate for the Planned Anesthesia: Yes Alternatives and Risks of Anesthesia Discussed w Pt/Guardian: Yes Pt/Guardian Understands and Agrees with Anesthesia Plan: Yes PreAnesthesia Questionnaire Other HEENT History: Lasik Cardiovascular History: Reports: Afib, Aneurysm, High Cholesterol, [place] Other Cardiovascular History: AAA @ 4.5- had testrf and its ok Respiratory History: Reports: Sleep Apnea Other Respiratory History: Not using CPAP anymore at this time - Has an allergic reaction to it. 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 herniated disc 1986. discs were pinching spinal cord 2015. rib fractures Neurological History: Reports: Other (See Below) Other Neuro History: dizziness, intervetebral disc stenosis Psychiatric History: Reports: Other (See Below) Other Psychiatric History: narcolepsy Endocrine/Metabolic History: Reports: Hypothyroidism, Obesity/BMI 30+ Hematologic History: Reports: None Immunologic History: Reports: None Oncologic (Cancer) History: Reports: None Dermatologic History: Reports: Cellulitis Other Dermatologic History: Has had a few moles and areas of skin removed in case it is cancerous. 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 Implant in upper right to hold in 4 teeth. Cardiovascular Surgical History: Reports: Other (See Below) Other Cardiovascular Surgeries/Procedures: ablationx2, defibrillation Respiratory Surgical History: Reports: None GI Surgical History: Reports: Colonoscopy, Hernia, Inguinal, Hernia Repair/Other Other GI Surgeries/Procedures: 3 hernia repairs. colonoscopy a few years ago Male Surgical History: Reports: None Endocrine Surgical History: Reports: None Neurological Surgical History: Reports: Lumbar Spine Musculoskeletal Surgical History: Reports: Amputation, Other (See Below) Other Musculoskeletal Surgeries/Procedures:: torn bicep tendon, bone spurs in neck removed, finger amputation Oncologic Surgical History: Reports: None Dermatological Surgical History: Reports: Skin Biopsy - SUBSTANCE USE Tobacco Use Status *Q: Former Tobacco User Tobacco Use Within Last Twelve Months: No Second Hand Smoke Exposure: No Days Per Week of Alcohol Use: 3 Number of Drinks Per Day: 5 Total Drinks Per Week: 15 Recreational Drug Use History: No - HOME MEDS Home Medications: Home Meds Krill/Om-3/DHA/EPA/Phospho/Ast [Krill Oil 1,000 mg Softgel] 2 tab PO DAILY 11/25/16 [History] Loratadine [Claritin] 10 mg PO DAILY 11/25/16 [History] Multivitamin [Multivitamins] 1 tab PO DAILY 11/25/16 [History] Apixaban [Eliquis] 5 mg PO BID 06/08/20 [History] Aspirin 81 mg PO DAILY 09/07/20 [History] Cyclobenzaprine [Flexeril] 10 mg PO BID PRN 09/07/20 [History] Levothyroxine Sodium [Levoxyl] 137 mcg PO DAILY 09/07/20 [History] Methylphenidate [Metadate ER] 10 mg PO DAILY 09/07/20 [History] Pravastatin [Pravachol] 20 mg PO DAILY 09/07/20 [History] Tadalafil [Cialis] 20 mg PO ASDIRECTED PRN 09/07/20 [History] Ubidecarenone [Coq-10] 100 mg PO DAILY 09/07/20 [History] traMADol [Ultram] 50 mg PO TID PRN 09/07/20 [History] Acetaminophen/HYDROcodone [[place] 325-5 MG] 1 - 2 tab PO Q6H PRN #10 tablet 09/08/20 [Rx] - CURRENT (IN HOUSE) MEDS Current Meds: Current Medications Sodium Chloride (Sodium Chloride 0.9% 10 Ml Syringe) 10 ml FLUSH ONETIME PRN PRN Reason: IV FLUSH Last Admin: 03/27/21 10:38 Dose: 10 ml Documented by: Discontinued Medications Diatrizoate Meglum/Diatrizoate Sod (Diatrizoate Meglumine/Diatrizoate Sodium 37% 120 Ml Bottle) 120 ml PO ONETIME ONE Stop: 03/27/21 09:28 Last Admin: 03/27/21 10:38 Dose: 30 ml Documented by: Sodium Chloride (Normal Saline) 1,000 mls @ 999 mls/hr IV ONETIME ONE Stop: 03/27/21 10:22 Last Admin: 03/27/21 09:55 Dose: 999 mls/hr Documented by: Metronidazole 500 mg/ Premix 100 mls @ 100 mls/hr IV ONETIME ONE Stop: 03/27/21 12:01 Last Admin: 03/27/21 11:19 Dose: 100 mls/hr Documented by: Sodium Chloride (Normal Saline) 1,000 mls @ 999 mls/hr IV ONETIME ONE Stop: 03/27/21 12:06 Last Admin: 03/27/21 11:18 Dose: 999 mls/hr Documented by: Levofloxacin/Dextrose 500 mg/ (Premix) 100 mls @ 100 mls/hr IV ONETIME ONE Stop: 03/27/21 12:08 Last Admin: 03/27/21 12:33 Dose: 100 mls/hr Documented by: Iopamidol (Iopamidol 612 Mg/Ml 50 Ml Sdv) 50 ml IVPUSH ONETIME ONE Stop: 03/27/21 09:28 Iopamidol (Iopamidol 612 Mg/Ml 100 Ml Bottle) 100 ml IVPUSH ONETIME ONE Stop: 03/27/21 09:28 Last Admin: 03/27/21 10:38 Dose: 100 ml Documented by:
[2021-03-27] MEDS ORDERED: Rocuronium 50 MG/5 ML Vial ONE (13:15)
[2021-03-27] MEDS ORDERED: Lidocaine 1% 4 ML ONE (13:15)
[2021-03-27] MEDS ORDERED: Ondansetron 4 MG/2 ML SDV ONE (13:15)
--- NOTE | 2021-03-27 13:15 | PCM.HP.2 ---
H&P History of Present Illness - General Date of Service: 03/27/21 Admit Problem/Dx: acute appendicitis Source of Information: Patient History Limitations: Reports: No Limitations - History of Present Illness Initial Comments - Free Text/Narative: The patient is a 66 y/o male who presents with a 2 day history of Right lower quadrant abdominal pain. He presented today because the pain was persistent and he was in bed all day yesterday. He felt chilled; did not check a temperature. He has had 2 liquid stools since his CT contrast. He denies any hematochezia or melena On arrival to the ED, he had workup which revealed findings of WBC 17K and CT findings of acute appendicitis. RLQ Pain Score (Numeric/FACES): 7 - Related Data Allergies/Adverse Reactions: Allergies Allergy/AdvReac Type Severity Reaction Status Date / Time cephalexin [From Keflex] Allergy Rash Verified 03/27/21 09:00 chlorhexidine Allergy Rash Verified 03/27/21 09:00 codeine Allergy Rash Verified 03/27/21 09:00 Home Medications: Home Meds Krill/Om-3/DHA/EPA/Phospho/Ast [Krill Oil 1,000 mg Softgel] 2 tab PO DAILY 11/25/16 [History] Loratadine [Claritin] 10 mg PO DAILY 11/25/16 [History] Multivitamin [Multivitamins] 1 tab PO DAILY 11/25/16 [History] Apixaban [Eliquis] 5 mg PO BID 06/08/20 [History] Aspirin 81 mg PO DAILY 09/07/20 [History] Cyclobenzaprine [Flexeril] 10 mg PO BID PRN 09/07/20 [History] Levothyroxine Sodium [Levoxyl] 137 mcg PO DAILY 09/07/20 [History] Methylphenidate [Metadate ER] 10 mg PO DAILY 09/07/20 [History] Pravastatin [Pravachol] 20 mg PO DAILY 09/07/20 [History] Tadalafil [Cialis] 20 mg PO ASDIRECTED PRN 09/07/20 [History] Ubidecarenone [Coq-10] 100 mg PO DAILY 09/07/20 [History] traMADol [Ultram] 50 mg PO TID PRN 09/07/20 [History] Acetaminophen/HYDROcodone [[place] 325-5 MG] 1 - 2 tab PO Q6H PRN #10 tablet 09/08/20 [Rx] Past Medical History Other HEENT History: Lasik Cardiovascular History: Reports: Afib, Aneurysm, High Cholesterol, [place] Other Cardiovascular History: AAA @ 4.5- had testrf and its ok Respiratory History: Reports: Sleep Apnea Other Respiratory History: Not using CPAP anymore at this time - Has an allergic reaction to it. 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 herniated disc 1986. discs were pinching spinal cord 2015. rib fractures Neurological History: Reports: Other (See Below) Other Neuro History: dizziness, intervetebral disc stenosis Psychiatric History: Reports: Other (See Below) Other Psychiatric History: narcolepsy Endocrine/Metabolic History: Reports: Hypothyroidism, Obesity/BMI 30+ Hematologic History: Reports: None Immunologic History: Reports: None Oncologic (Cancer) History: Reports: None Dermatologic History: Reports: Cellulitis Other Dermatologic History: Has had a few moles and areas of skin removed in case it is cancerous. 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 Implant in upper right to hold in 4 teeth. Cardiovascular Surgical History: Reports: Other (See Below) Other Cardiovascular Surgeries/Procedures: ablationx2, defibrillation Respiratory Surgical History: Reports: None GI Surgical History: Reports: Colonoscopy, Hernia, Inguinal, Hernia Repair/Other Other GI Surgeries/Procedures: 3 hernia repairs. colonoscopy a few years ago Male Surgical History: Reports: None Endocrine Surgical History: Reports: None Neurological Surgical History: Reports: Lumbar Spine Musculoskeletal Surgical History: Reports: Amputation, Other (See Below) Other Musculoskeletal Surgeries/Procedures:: torn bicep tendon, bone spurs in neck removed, finger amputation Oncologic Surgical History: Reports: None Dermatological Surgical History: Reports: Skin Biopsy Social & Family History - Family History Family Medical History: No Pertinent Family History Neurological: Reports: Alzheimers Disease Other Oncologic Family History: father had cancer - Tobacco Use Tobacco Use Status *Q: Former Tobacco User Second Hand Smoke Exposure: No - Caffeine Use Caffeine Use: Reports: Soda - Alcohol Use Days Per Week of Alcohol Use: 3 Number of Drinks Per Day: 5 Total Drinks Per Week: 15 - Recreational Drug Use Recreational Drug Use: No - Living Situation & Occupation Living situation: Reports: , with Spouse Occupation: Employed ([employer]) H&P Review of Systems - Review of Systems: Review Of Systems: See Below General: Reports: Chills Pulmonary: Reports: No Symptoms Cardiovascular: Reports: No Symptoms Gastrointestinal: Reports: Abdominal Pain Genitourinary: Reports: No Symptoms Musculoskeletal: Reports: No Symptoms Skin: Reports: No Symptoms Neurological: Reports: No Symptoms Hematologic/Lymphatic: Reports: No Symptoms Exam - Exam Exam: See Below - Vital Signs Vital Signs: Last Vital Signs Temp 37.4 C 03/27/21 08:56 Pulse 71 03/27/21 08:56 Resp 18 03/27/21 08:56 BP 122/80 03/27/21 08:56 Pulse Ox 94 L 03/27/21 08:56 Weight: 114.804 kg - Exam Quality Assessment: No: Supplemental Oxygen General: Alert, Oriented HEENT: Conjunctiva Clear, EOMI Neck: Supple Lungs: Clear to Auscultation, Normal Respiratory Effort Cardiovascular: Regular Rate, Regular Rhythm GI/Abdominal Exam: Soft, Rebound (in RLQ), Tender (in periumbilical area and RLQ) Extremities: Normal Inspection, No Pedal Edema Peripheral Pulses: 2+: Dorsalis Pedis (L), Dorsalis Pedis (R) Skin: Warm, Dry, Intact - Patient Data Lab Results Last 24 hrs: Laboratory Results - last 24 hr 03/27/21 03/27/21 03/27/21 Range/Units 09:45 09:45 09:45 WBC 17.11 H (4.23-9.07) K/mm3 RBC 5.36 (4.63-6.08) M/mm3 Hgb 15.0 (13.7-17.5) gm/dl Hct 45.2 (40.1-51.0) % MCV 84.3 (79.0-92.2) fl MCH 28.0 (25.7-32.2) pg MCHC 33.2 (32.2-35.5) g/dl RDW Std Deviation 47.9 H (35.1-43.9) fL Plt Count 191 D (163-337) K/mm3 MPV 11.0 (9.4-12.3) fl Neut % (Auto) 77.4 H (34.0-67.9) % Lymph % (Auto) 10.5 L (21.8-53.1) % [place] % (Auto) 11.5 (5.3-12.2) % Eos % (Auto) 0.1 L (0.8-7.0) Baso % (Auto) 0.3 (0.1-1.2) % Neut # (Auto) 13.23 H (1.78-5.38) K/mm3 Lymph # (Auto) 1.80 (1.32-3.57) K/mm3 [place] # (Auto) 1.97 H (0.30-0.82) K/mm3 Eos # (Auto) 0.02 L (0.04-0.54) K/mm3 Baso # (Auto) 0.05 (0.01-0.08) K/mm3 Manual Slide Review Normal smear PT 12.7 H (9.7-12.0) SECONDS INR 1.19 Sodium 140 (136-145) mEq/L Potassium 3.6 (3.5-5.1) mEq/L Chloride 102 (98-107) mEq/L Carbon Dioxide 27 (21-32) mEq/L Anion Gap 14.6 (5-15) BUN 16 (7-18) mg/dL Creatinine 1.3 (0.7-1.3) mg/dL Est Cr Clr Drug Dosing 57.83 mL/min Estimated GFR (MDRD) 55 (>60) mL/min BUN/Creatinine Ratio 12.3 L (14-18) Glucose 121 H (70-99) mg/dL Calcium 8.2 L (8.5-10.1) mg/dL Total Bilirubin 1.3 H (0.2-1.0) mg/dL AST 21 (15-37) U/L ALT 35 (16-63) U/L Alkaline Phosphatase 66 (46-116) U/L C-Reactive Protein 28.2 H* (<1.0) mg/dL Total Protein 7.0 (6.4-8.2) g/dl Albumin 3.3 L (3.4-5.0) g/dl Globulin 3.7 gm/dL Albumin/Globulin Ratio 0.9 L (1-2) Lipase 73 (73-393) U/L Urine Color (Yellow) Urine Appearance (Clear) Urine pH (5.0-8.0) Ur Specific [place] (1.005-1.030) Urine Protein (Negative) Urine Glucose (UA) (Negative) Urine Ketones (Negative) Urine Occult Blood (Negative) Urine Nitrite (Negative) Urine Bilirubin (Negative) Urine Urobilinogen (0.2-1.0) Ur Leukocyte Esterase (Negative) Urine RBC (0-5) /hpf Urine WBC (0-5) /hpf Ur Squamous Epith Cells (0-5) /hpf Amorphous Sediment (NOT SEEN) /hpf Urine Bacteria (FEW) /hpf Urine Mucus (FEW) /hpf 03/27/21 Range/Units 09:56 WBC (4.23-9.07) K/mm3 RBC (4.63-6.08) M/mm3 Hgb (13.7-17.5) gm/dl Hct (40.1-51.0) % MCV (79.0-92.2) fl MCH (25.7-32.2) pg MCHC (32.2-35.5) g/dl RDW Std Deviation (35.1-43.9) fL Plt Count (163-337) K/mm3 MPV (9.4-12.3) fl Neut % (Auto) (34.0-67.9) % Lymph % (Auto) (21.8-53.1) % [place] % (Auto) (5.3-12.2) % Eos % (Auto) (0.8-7.0) Baso % (Auto) (0.1-1.2) % Neut # (Auto) (1.78-5.38) K/mm3 Lymph # (Auto) (1.32-3.57) K/mm3 [place] # (Auto) (0.30-0.82) K/mm3 Eos # (Auto) (0.04-0.54) K/mm3 Baso # (Auto) (0.01-0.08) K/mm3 Manual Slide Review PT (9.7-12.0) SECONDS INR Sodium (136-145) mEq/L Potassium (3.5-5.1) mEq/L Chloride (98-107) mEq/L Carbon Dioxide (21-32) mEq/L Anion Gap (5-15) BUN (7-18) mg/dL Creatinine (0.7-1.3) mg/dL Est Cr Clr Drug Dosing mL/min Estimated GFR (MDRD) (>60) mL/min BUN/Creatinine Ratio (14-18) Glucose (70-99) mg/dL Calcium (8.5-10.1) mg/dL Total Bilirubin (0.2-1.0) mg/dL AST (15-37) U/L ALT (16-63) U/L Alkaline Phosphatase (46-116) U/L C-Reactive Protein (<1.0) mg/dL Total Protein (6.4-8.2) g/dl Albumin (3.4-5.0) g/dl Globulin gm/dL Albumin/Globulin Ratio (1-2) Lipase (73-393) U/L Urine Color Yellow (Yellow) Urine Appearance Clear (Clear) Urine pH 6.0 (5.0-8.0) Ur Specific [place] > or = 1.030 (1.005-1.030) Urine Protein 2+ H (Negative) Urine Glucose (UA) Negative (Negative) Urine Ketones Trace H (Negative) Urine Occult Blood 1+ H (Negative) Urine Nitrite Negative (Negative) Urine Bilirubin 1+ H (Negative) Urine Urobilinogen 0.2 (0.2-1.0) Ur Leukocyte Esterase Negative (Negative) Urine RBC 5-10 H (0-5) /hpf Urine WBC 0-5 (0-5) /hpf Ur Squamous Epith Cells 0-5 (0-5) /hpf Amorphous Sediment Few H (NOT SEEN) /hpf Urine Bacteria Few (FEW) /hpf Urine Mucus Many H (FEW) /hpf Result Diagrams: 03/27/21 09:45 03/27/21 09:45 Sepsis Event Note - Evaluation Sepsis Screening Result: No Definite Risk - Focused Exam Vital Signs: Vital Signs Temp Pulse Resp BP Pulse Ox 03/27/21 08:56 37.4 C 71 18 122/80 94 L *Q Meaningful Use (ADM) - VTE Risk Assess *Q Each Risk Factor Represents 1 Point: Minor Surgery Planned, Obesity ( BMI > 25 kg/m2) Total Score 1 Point Risk Factors: 2 Each Risk Factor Represents 2 Points: Age 60 - 74 Years Total Score 2 Point Risk Factors: 2 - Problem List (1) Acute appendicitis SNOMED Code(s): 95796590 ICD Code: K35.80 - UNSPECIFIED ACUTE APPENDICITIS Status: Acute Current Visit: Yes Problem List Initiated/Reviewed/Updated: Yes Orders Last 24hrs: Active Orders 24 hr Category Date Time Status NPO Now [Nothing per Oral Now Diet] [DIET] Diet 03/27/21 Dinner Active Sodium Chloride 0.9% [Saline Flush] Med 03/27/21 09:27 Active 10 ml FLUSH ONETIME PRN Medication Orders Sodium Chloride (Sodium Chloride 0.9% 10 Ml Syringe) 10 ml FLUSH ONETIME PRN PRN Reason: IV FLUSH Last Admin: 03/27/21 10:38 Dose: 10 ml Documented by: Admin: 03/27/21 09:56 Dose: 10 ml Documented by: BELL Assessment/Plan Comment:: 66 y/o gentleman with acute appendicits. On eliquis for history of atrial flutter, has had ablation x2 - plan for laparoscopic appendectomy, possible open. Discussed risk of bleeding due to anticoagulation. His written consent was obtained - allergy to cephalexin, will give metronidazole and levofloxacin for IV antibiotics - will assess need for inpatient stay based on intraoperative findings - NPO Leona Peters MD General surgery - Mortality Measure Prognosis:: Good
[2021-03-27] MEDS ORDERED: fentaNYL 250 MCG/5 ML SDV ONE (13:16)
[2021-03-27] MEDS ORDERED: Midazolam 1 MG/ML 2 ML SDV ONE (13:16)
[2021-03-27] MEDS ORDERED: Propofol 200 MG/20 ML SDV ONE (13:16)
[2021-03-27] MEDS ORDERED: Succinylcholine/Sod PF 100 MG/5 ML SYRINGE IV ONE (13:21)
[2021-03-27] MEDS ORDERED: fentaNYL 100 MCG/2 ML SDV IVPUSH PRN (14:04)
[2021-03-27] MEDS ORDERED: Ondansetron 4 MG/2 ML SDV IVPUSH PRN (14:04)
[2021-03-27] MEDS ORDERED: HYDROmorphone 0.5 MG/0.5 ML Syringe IVPUSH PRN (14:04)
[2021-03-27] MEDS ORDERED: Glycopyrrolate 0.2 MG/ML SDV ONE ×2 (14:06→14:07)
[2021-03-27] MEDS ORDERED: Lactated Ringers 1,000 ML ONE ×2 (14:22→14:35)
[2021-03-27] MEDS ORDERED: HYDROmorphone 0.5 MG/0.5 ML Syringe ONE (14:52)
--- NOTE | 2021-03-27 15:23 | PCM.POSTAN ---
POST ANESTHESIA ASSESSMENT - MENTAL STATUS Mental Status: Alert, Oriented - VITAL SIGNS Vital Signs: Last Vital Signs Temp 99.3 F 03/27/21 08:56 Pulse 71 03/27/21 08:56 Resp 18 03/27/21 08:56 BP 122/80 03/27/21 08:56 Pulse Ox 94 L 03/27/21 08:56 1516 133/87 99 17 99.7 94% - RESPIRATORY Respiratory Status: Respiratory Rate WNL, Airway Patent, O2 Saturation Stable, Supplemental Oxygen - CARDIOVASCULAR CV Status: Pulse Rate WNL, Blood Pressure Stable - GASTROINTESTINAL GI Status: No Symptoms - PAIN Pain Score: 0 - POST OP HYDRATION Hydration Status: Adequate & Stable
--- NOTE | 2021-03-27 15:26 | PCM.OPNOTE ---
- General Post-Op/Procedure Note Date of Surgery/Procedure: 03/27/21 Operative Procedure(s): laparoscopic appendectomy Findings: acute appendicitis Pre Op Diagnosis: acute appendicitis Post-Op Diagnosis: same Anesthesia Technique: General ET Tube Primary Surgeon: Leona Peters Anesthesia Provider: Hossein Jennings Pathology: appendix Fluid Replacement, Intraop: 1,000 Output, Urine Amount: 0 EBL in mLs: 10 Complications: none apparent Condition: Good
--- NOTE | 2021-03-27 15:30 | PCM.PRNOTE ---
- Free Text/Narrative Note: Operative Report Date of surgery: March 27, 2021 Preoperative diagnosis: acute appendicitis. Postoperative diagnosis: same Procedure performed: laparoscopic appendectomy Surgeon: Dr. Leona Peters Anesthesia: General Livestock Auctioneer: Hossein Jennings CRNA Estimated blood loss: 10 mL IV fluids: 1000 mL Urine output: 0 mL, pt voided prior to OR Drains and lines: none Findings: acute appendicitis Pathology: appendix Indications for procedure: The patient is a 66 y/o gentleman who presented to the ED with findings of acute appendicitis. He was consented for a laparoscopic appendectomy, possible open. We discussed risks of infection, and increased bleeding risk due to his anticoagulation. His written consent was obtained. Description of procedure: The patient was taken back to the operating room and placed in supine position on the operating table. SCD boots were in place and functional prior to the start of the procedure. Preoperative antibiotics were administered. The patient had successful induction of general anesthesia and was intubated without difficulty. Pt was then prepped and draped in standard surgical fashion and a timeout was performed. We began by making a 15 mm incision in the infraumbilical skin and deepened down to level of the fascia which was then grasped and incised sharply. We entered the peritoneum and then placed stay sutures of 0 Vicryl on the fascial edges. A 12 mm Kee port was then placed into the umbilicus and the balloon was inflated. The abdomen was insufflated to 15 mmHg a 5 mm camera was inserted. There was no evidence of any injury created from entry into the abdomen. A TA P block was performed using mixed 1% lidocaine with epinephrine and 0.5% bup ivacaine with epinephrine. We then proceeded to place a 5 mm port under direct visualization in the suprapubic midline and an additional 5mm port in the left lower quadrant. The patient was then positioned in Trendelenburg with right side elevated and we proceeded to mobilize the appendix. The appendix was densely adherent to the pelvic sidewall and to the cecum with fibrinous adhesions and other adhesions. The appendix was then grasped and with blunt dissection was brought into the surgical field. The mesoappendix dissected from the appendix. The appendix was then taken with a tissue staple load. The mesoappendix was then taken with the ligasure. The specimen was in place in the Endo Catch bag. We then inspected and suctioned up any blood in the area. There was no active bleeding at the end of this case. The abdomen was then desufflated and the umbilical fascia closed with 0 Vicryl sutures and the stay sutures were tied, effectively closing the umbilical port site. The skin was then reapproximated at all port sites using a 4-0 Monocryl subcutaneous stitch and covered with Dermabond surgical glue. The patient tolerated the procedure. He was extubated and transported to the PACU in stable condition. All sponge and needle counts were correct. Leona Peters MD General surgery
--- NOTE | 2021-03-27 16:14 | PCM48HPAN ---
Post Anesthesia Note - EVALUATION WITHIN 48HRS OF ANESTHETIC Vital Signs in Normal Range: Yes Patient Participated in Evaluation: Yes Respiratory Function Stable: Yes Airway Patent: Yes Cardiovascular Function Stable: Yes Hydration Status Stable: Yes Pain Control Satisfactory: Yes Nausea and Vomiting Control Satisfactory: Yes Mental Status Recovered: Yes Vital Signs: Last Vital Signs Temp 99.9 F 03/27/21 16:00 Pulse 87 03/27/21 16:00 Resp 22 H 03/27/21 16:00 BP 110/58 L 03/27/21 16:00 Pulse Ox 95 03/27/21 16:00 - COMMENTS/OBSERVATIONS Free Text/Narrative:: rests. denies nausea
[2021-03-27 17:44] VITALS: BP 112/70; PULSE 75
== END 2021-03-27 17:43 | disposition home or self-care (01) ==
LOC: JD.ED 08:43 → JD.SDS 12:44
PROVIDERS: ATTEND Surgery
DX: K35.30 Acute appendicitis with localized peritonitis, without perforation or gangrene (principal); E78.00 Pure hypercholesterolemia, unspecified; I25.2 Old myocardial infarction; G47.30 Sleep apnea, unspecified; E03.9 Hypothyroidism, unspecified; E66.9 Obesity, unspecified; Z68.35 Body mass index [BMI] 35.0-35.9, adult; Z88.6 Allergy status to analgesic agent; Z88.8 Allergy status to other drugs, medicaments and biological substances; Z79.82 Long term (current) use of aspirin; Z79.890 Hormone replacement therapy; Z79.899 Other long term (current) drug therapy; Z87.891 Personal history of nicotine dependence
CPT/HCPCS: 36415; 44970; 74177; 80053; 81001; 83690; 85025; 85610; 86140; 88304; 96365; 96367; 99285; J0330; J1170; J1956; J2250; J2405; J2704; J2710; J3010; J3490; J7030; J7120; Q9963; Q9967; 00840; 99140

== ENCOUNTER 2021-09-30 08:31 | Emergency (ER) | payer MEDICARE, BC ==
[2021-09-30 08:50] VITALS: BP 137/77; PULSE 67
[2021-09-30] MEDS ORDERED: Sodium Chloride 0.9% 10 ML Syringe FLUSH PRN (08:56)
[2021-09-30] MEDS ORDERED: Sodium Chloride 0.9% 1,000 ML IV SCH (09:00)
--- NOTE | 2021-09-30 09:03 | EDM.PDOC ---
ED HPI GENERAL MEDICAL PROBLEM - General Chief Complaint: General Stated Complaint: IRREGULAR HEARTBEAT Time Seen by Provider: 09/30/21 08:45 Source of Information: Reports: Patient History Limitations: Reports: No Limitations - History of Present Illness INITIAL COMMENTS - FREE TEXT/NARRATIVE: The patient presents with an irregular heart beat. He has a history of A-fib. He is on xarelto and he had ablation twice. He says some of his family got sick after Thanksgiving and he had some diarrhea. He also has been drinking a little more the past few weeks. He woke up this morning and felt lightheaded and dizzy. He has no headache, fever, chills or cough. He has no chest pain or shortness of breath. He has no nausea, vomiting or abdominal pain. Onset: Gradual Duration: Day(s): Severity: Moderate Improves with: Reports: None Worsens with: Reports: None Associated Symptoms: Denies: Chest Pain, Cough, Fever/Chills, Headaches, Nausea/Vomiting, Shortness of Breath - Related Data Allergies Allergy/AdvReac Type Severity Reaction Status Date / Time cephalexin [From Keflex] Allergy Rash Verified 09/30/21 08:45 chlorhexidine Allergy Rash Verified 09/30/21 08:45 codeine Allergy Rash Verified 09/30/21 08:45 Home Meds: Home Meds Krill/Om-3/DHA/EPA/Phospho/Ast [Krill Oil 1,000 mg Softgel] 2 tab PO DAILY 11/25/16 [History] Loratadine [Claritin] 10 mg PO DAILY 11/25/16 [History] Multivitamin [Multivitamins] 1 tab PO DAILY 11/25/16 [History] Apixaban [Eliquis] 5 mg PO BID 06/08/20 [History] Aspirin 81 mg PO DAILY 09/07/20 [History] Cyclobenzaprine [Flexeril] 10 mg PO BID PRN 09/07/20 [History] Levothyroxine Sodium [Levoxyl] 137 mcg PO DAILY 09/07/20 [History] Methylphenidate [Metadate ER] 10 mg PO DAILY 09/07/20 [History] Pravastatin [Pravachol] 20 mg PO DAILY 09/07/20 [History] Tadalafil [Cialis] 20 mg PO ASDIRECTED PRN 09/07/20 [History] Ubidecarenone [Coq-10] 100 mg PO DAILY 09/07/20 [History] traMADol [Ultram] 50 mg PO TID PRN 09/07/20 [History] Acetaminophen/HYDROcodone [[place] 325-5 MG] 1 - 2 tab PO Q6H PRN #10 tablet 09/08/20 [Rx] Acetaminophen/oxyCODONE [Percocet 325-5 MG] 1 each PO Q6H PRN 14 Days #20 tab 03/27/21 [Rx] Docusate Sodium [Colace] 100 mg PO BID 20 Days #40 capsule 03/27/21 [Rx] Ibuprofen 600 mg PO Q6HR PRN #60 tablet 03/27/21 [Rx] Past Medical History Other HEENT History: Lasik Cardiovascular History: Reports: Afib, Aneurysm, High Cholesterol, [place] Other Cardiovascular History: AAA @ 4.5- had testrf and its ok Respiratory History: Reports: Sleep Apnea Other Respiratory History: Not using CPAP anymore at this time - Has an allergic reaction to it. 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 herniated disc 1986. rib fractures Neurological History: Reports: Other (See Below) Other Neuro History: dizziness, intervetebral disc stenosis Psychiatric History: Reports: Other (See Below) Other Psychiatric History: narcolepsy Endocrine/Metabolic History: Reports: Hypothyroidism, Obesity/BMI 30+ Hematologic History: Reports: None Immunologic History: Reports: None Oncologic (Cancer) History: Reports: None Dermatologic History: Reports: Cellulitis Other Dermatologic History: Has had a few moles and areas of skin removed in case it is cancerous. 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 Implant in upper right to hold in 4 te eth. Cardiovascular Surgical History: Reports: Other (See Below) Other Cardiovascular Surgeries/Procedures: ablationx2, defibrillation Respiratory Surgical History: Reports: None GI Surgical History: Reports: Appendectomy, Colonoscopy, Hernia, Inguinal, Hernia Repair/Other Other GI Surgeries/Procedures: 3 hernia repairs. colonoscopy Male Surgical History: Reports: None Neurological Surgical History: Reports: Lumbar Spine Musculoskeletal Surgical History: Reports: Amputation, Other (See Below) Other Musculoskeletal Surgeries/Procedures:: torn bicep tendon, bone spurs in neck removed, finger amputation Oncologic Surgical History: Reports: None Dermatological Surgical History: Reports: Skin Biopsy Social & Family History - Family History Family Medical History: No Pertinent Family History Neurological: Reports: Alzheimers Disease Other Oncologic Family History: father had cancer - Tobacco Use Tobacco Use Status *Q: Former Tobacco User Years of Tobacco use: 10 Packs/Tins Daily: 0.5 Used Tobacco, but Quit: Yes Month/Year Tobacco Last Used: many years ago - Caffeine Use Caffeine Use: Reports: Soda Other Caffeine Use: has been drinking 6 pack Diet Mtn Dew per day - Alcohol Use Days Per Week of Alcohol Use: 7 Number of Drinks Per Day: 6 Total Drinks Per Week: 42 - Recreational Drug Use Recreational Drug Use: Yes Drug Use in Last 12 Months: Yes Recreational Drug Type: Reports: Marijuana/Hashish - Living Situation & Occupation Living situation: Reports: , with Spouse Occupation: Employed ([employer]) ED ROS GENERAL - Review of Systems Review Of Systems: See Below Constitutional: Reports: No Symptoms HEENT: Reports: No Symptoms Respiratory: Reports: No Symptoms Cardiovascular: Reports: No Symptoms Endocrine: Reports: No Symptoms GI/Abdominal: Reports: Diarrhea. Denies: Abdominal Pain, Nausea, Vomiting : Reports: No Symptoms Musculoskeletal: Reports: No Symptoms ED EXAM, GENERAL - Physical Exam Exam: See Below Exam Limited By: No Limitations General Appearance: Alert, No Apparent Distress Ears: Normal External Exam Nose: Normal Inspection Head: Atraumatic, Normocephalic Neck: Normal Inspection Respiratory/Chest: No Respiratory Distress, Lungs Clear, Normal Breath Sounds Cardiovascular: Regular Rate, Rhythm, No Edema, No Murmur GI/Abdominal: Soft, Non-Tender, No Organomegaly, No Mass Back Exam: Normal Inspection Extremities: Normal Inspection #1 Interpretation EKG Date: 09/30/21 Time: 08:41 Rhythm: NSR Rate (Beats/Min): 64 [place]: Normal P-Wave: Present QRS: Normal ST-T: Normal QT: Normal Course - Vital Signs Last Recorded V/S: Last Vital Signs Temp 96.7 F L 09/30/21 08:46 Pulse 67 09/30/21 08:46 Resp 14 09/30/21 08:46 BP 137/77 09/30/21 08:46 Pulse Ox 95 09/30/21 08:46 - Orders/Labs/Meds Orders: Active Orders 24 hr Category Date Time Status Cardiac Monitoring [RC] . DIRECTED Care 09/30/21 08:56 Active Peripheral IV Care [RC] . DIRECTED Care 09/30/21 08:57 Active Sodium Chloride 0.9% [Normal Saline] 1,000 ml Med 09/30/21 09:00 Active IV .BOLUS Sodium Chloride 0.9% [Saline Flush] Med 09/30/21 08:56 Active 10 ml FLUSH ASDIRECTED PRN Peripheral IV Insertion Adult [OM.PC] Stat Oth 09/30/21 08:56 Ordered Medication Orders Sodium Chloride (Normal Saline) 1,000 mls @ 1,000 mls/hr IV .BOLUS JOHNNIE Last Admin: 09/30/21 09:09 Dose: 1,000 mls/hr Documented by: JOE Sodium Chloride (Sodium Chloride 0.9% 10 Ml Syringe) 10 ml FLUSH ASDIRECTED PRN PRN Reason: Keep Vein Open Last Admin: 09/30/21 09:09 Dose: 10 ml Documented by: JOE Labs: Laboratory Tests 09/30/21 09/30/21 09/30/21 Range/Units 08:52 08:52 08:52 WBC 4.99 (4.23-9.07) K/mm3 RBC 5.40 (4.63-6.08) M/mm3 Hgb 15.9 D (13.7-17.5) gm/dl Hct 47.9 (40.1-51.0) % MCV 88.7 D (79.0-92.2) fl MCH 29.4 (25.7-32.2) pg MCHC 33.2 (32.2-35.5) g/dl RDW Std Deviation 44.0 H (35.1-43.9) fL Plt Count 208 (163-337) K/mm3 MPV 10.2 (9.4-12.3) fl Neut % (Auto) 57.8 (34.0-67.9) % Lymph % (Auto) 23.8 (21.8-53.1) % [place] % (Auto) 14.6 H (5.3-12.2) % Eos % (Auto) 3.0 (0.8-7.0) Baso % (Auto) 0.4 (0.1-1.2) % Neut # (Auto) 2.88 (1.78-5.38) K/mm3 Lymph # (Auto) 1.19 L (1.32-3.57) K/mm3 [place] # (Auto) 0.73 (0.30-0.82) K/mm3 Eos # (Auto) 0.15 (0.04-0.54) K/mm3 Baso # (Auto) 0.02 (0.01-0.08) K/mm3 PT 11.4 (9.7-12.0) SECONDS INR 1.03 APTT 29.6 (21.7-31.4) SECONDS Sodium 139 (136-145) mEq/L Potassium 3.7 (3.5-5.1) mEq/L Chloride 103 (98-107) mEq/L Carbon Dioxide 25 (21-32) mEq/L Anion Gap 14.7 (5-15) BUN 22 H (7-18) mg/dL Creatinine 1.5 H (0.7-1.3) mg/dL Est Cr Clr Drug Dosing TNP Estimated GFR (MDRD) 47 (>60) mL/min BUN/Creatinine Ratio 14.7 (14-18) Glucose 132 H (70-99) mg/dL Calcium 8.8 (8.5-10.1) mg/dL Magnesium 1.8 (1.8-2.4) mg/dL Total Bilirubin 0.5 (0.2-1.0) mg/dL AST 31 (15-37) U/L ALT 38 (16-63) U/L Alkaline Phosphatase 73 (46-116) U/L Troponin I < 0.017 (0.00-0.056) ng/mL C-Reactive Protein 1.8 H* (<1.0) mg/dL Total Protein 6.9 (6.4-8.2) g/dl Albumin 3.7 (3.4-5.0) g/dl Globulin 3.2 gm/dL Albumin/Globulin Ratio 1.2 (1-2) Lipase 101 (73-393) U/L SARS-CoV-2 RNA (EVERT) (NEGATIVE) 09/30/21 Range/Units 08:52 WBC (4.23-9.07) K/mm3 RBC (4.63-6.08) M/mm3 Hgb (13.7-17.5) gm/dl Hct (40.1-51.0) % MCV (79.0-92.2) fl MCH (25.7-32.2) pg MCHC (32.2-35.5) g/dl RDW Std Deviation (35.1-43.9) fL Plt Count (163-337) K/mm3 MPV (9.4-12.3) fl Neut % (Auto) (34.0-67.9) % Lymph % (Auto) (21.8-53.1) % [place] % (Auto) (5.3-12.2) % Eos % (Auto) (0.8-7.0) Baso % (Auto) (0.1-1.2) % Neut # (Auto) (1.78-5.38) K/mm3 Lymph # (Auto) (1.32-3.57) K/mm3 [place] # (Auto) (0.30-0.82) K/mm3 Eos # (Auto) (0.04-0.54) K/mm3 Baso # (Auto) (0.01-0.08) K/mm3 PT (9.7-12.0) SECONDS INR APTT (21.7-31.4) SECONDS Sodium (136-145) mEq/L Potassium (3.5-5.1) mEq/L Chloride (98-107) mEq/L Carbon Dioxide (21-32) mEq/L Anion Gap (5-15) BUN (7-18) mg/dL Creatinine (0.7-1.3) mg/dL Est Cr Clr Drug Dosing Estimated GFR (MDRD) (>60) mL/min BUN/Creatinine Ratio (14-18) Glucose (70-99) mg/dL Calcium (8.5-10.1) mg/dL Magnesium (1.8-2.4) mg/dL Total Bilirubin (0.2-1.0) mg/dL AST (15-37) U/L ALT (16-63) U/L Alkaline Phosphatase (46-116) U/L Troponin I (0.00-0.056) ng/mL C-Reactive Protein (<1.0) mg/dL Total Protein (6.4-8.2) g/dl Albumin (3.4-5.0) g/dl Globulin gm/dL Albumin/Globulin Ratio (1-2) Lipase (73-393) U/L SARS-CoV-2 RNA (EVERT) Negative (NEGATIVE) Meds: Medications Generic Name Dose Route Start Last Admin Trade Name Freq PRN Reason Stop Dose Admin Sodium Chloride 1,000 mls @ 1,000 mls/hr 09/30/21 09:00 09/30/21 09:09 Normal Saline IV 1,000 mls/hr .BOLUS JOHNNIE Administration Sodium Chloride 10 ml 09/30/21 08:56 09/30/21 09:09 Sodium Chloride 0.9% 10 Ml Syringe FLUSH 10 ml ASDIRECTED PRN Administration Keep Vein Open - Re-Assessments/Exams Free Text/Narrative Re-Assessment/Exam: 09/30/21 09:02 I ordered an IV NS 1Lbolus, EKG, and labs. His EKG shows a NSR with no acute changes. 09/30/21 11:16 His CBC looked good. His PT and PTT look good. His creatinine was slightly elevated at 1.5. His glucose was 172. His troponin was negative. His CRP was elevated at 1.8. He was COVID negative. Departure - Departure Time of Disposition: 11:20 Disposition: Home, Self-Care 01 Condition: Good Clinical Impression: Palpitations, Dehydration - Discharge Information *PRESCRIPTION DRUG MONITORING PROGRAM REVIEWED*: Not Applicable *COPY OF PRESCRIPTION DRUG MONITORING REPORT IN PATIENT TAYLOR: Not Applicable Referrals: Samantha Barnes PA-C [Primary Care Provider] - 1 Week Forms: ED Department Discharge Additional Instructions: Drink plenty of fluids. Keep taking your medications as prescribed. Follow up with Samantha Barnes within a week. Please return if you are worse. Sepsis Event Note (ED) - Evaluation Sepsis Screening Result: No Definite Risk - Focused Exam Vital Signs: Vital Signs Temp Pulse Resp BP Pulse Ox 09/30/21 08:46 96.7 F L 67 14 137/77 95 - My Orders Last 24 Hours: My Active Orders 09/30/21 08:56 Cardiac Monitoring [RC] . DIRECTED Sodium Chloride 0.9% [Saline Flush] 10 ml FLUSH ASDIRECTED PRN Peripheral IV Insertion Adult [OM.PC] Stat 09/30/21 08:57 Peripheral IV Care [RC] . DIRECTED 09/30/21 09:00 Sodium Chloride 0.9% [Normal Saline] 1,000 ml IV .BOLUS - Assessment/Plan Last 24 Hours: My Active Orders 09/30/21 08:56 Cardiac Monitoring [RC] . DIRECTED Sodium Chloride 0.9% [Saline Flush] 10 ml FLUSH ASDIRECTED PRN Peripheral IV Insertion Adult [OM.PC] Stat 09/30/21 08:57 Peripheral IV Care [RC] . DIRECTED 09/30/21 09:00 Sodium Chloride 0.9% [Normal Saline] 1,000 ml IV .BOLUS
--- NOTE | 2021-09-30 09:55 | CR ---
Chest: Frontal view of the chest was obtained. Comparison: Prior chest CT of 01/06/21 and chest x-ray of 12/21/20. Heart size is normal. Slight tortuosity of the thoracic aorta is seen. Lungs are clear with no acute parenchymal change. Bony structures show nothing acute. Impression: 1. Nothing acute is seen on frontal chest x-ray. Diagnostic code #2
== END 2021-09-30 11:25 | disposition home or self-care (01) ==
LOC: JD.ED 08:31
DX: R00.2 Palpitations (principal); E86.0 Dehydration; E78.00 Pure hypercholesterolemia, unspecified; I10 Essential (primary) hypertension; E66.9 Obesity, unspecified; E03.9 Hypothyroidism, unspecified; Z68.30 Body mass index [BMI] 30.0-30.9, adult; Z79.01 Long term (current) use of anticoagulants; Z88.1 Allergy status to other antibiotic agents; Z88.5 Allergy status to narcotic agent; Z87.891 Personal history of nicotine dependence; Z79.899 Other long term (current) drug therapy; Z20.822 Contact with and (suspected) exposure to COVID-19
CPT/HCPCS: 36415; 71045; 80053; 83690; 83735; 84484; 85025; 85610; 85730; 86140; 93005; 99285; J7030; U0002

== ENCOUNTER 2022-02-26 06:00 | Day surgery (SDC) | payer MEDICARE, BC ==
[~2022-02-26 06:00] MED LIST changes: +Acetaminophen 325 MG Tab PO SCH; +Pregabalin 25 MG Cap PO SCH; +Sodium Chloride 0.9% 10 ML Syringe FLUSH SCH; +Vancomycin 2 GM in Sodium Chloride 0.9% 500 ML IV ONE; +oxyCODONE ER 10 MG TAB.ER PO SCH
[2022-02-26] MEDS ORDERED: Lidocaine 1% 5 ML VIAL ONE (06:18)
[2022-02-26] MEDS ORDERED: Propofol 200 MG/20 ML SDV ONE ×2 (06:19→07:58)
[2022-02-26] MEDS ORDERED: Midazolam 1 MG/ML 2 ML SDV ONE (06:19)
[2022-02-26] MEDS ORDERED: Ondansetron 4 MG/2 ML SDV ONE (07:52)
[2022-02-26] MEDS: Vancomycin 1 GM SDV ONE ×2 (07:57→08:26)
[2022-02-26] MEDS: Morphine 8 MG, EPINEPHrine 0.3 MG, Ketorolac 30 MG, Sodium Chloride 0.9% 7.9 ML PRN ×8 (07:58→08:18)
[2022-02-26] MEDS ORDERED: Ondansetron 4 MG/2 ML SDV IVPUSH PRN (08:42)
[2022-02-26] MEDS ORDERED: fentaNYL 100 MCG/2 ML SDV IVPUSH PRN (08:42)
[2022-02-26] MEDS ORDERED: HYDROmorphone 0.5 MG/0.5 ML Syringe IVPUSH PRN (08:42)
[2022-02-26] MEDS ORDERED: oxyCODONE 5 MG Tab PO ONE (08:45)
[2022-02-26] MEDS ORDERED: Ropivacaine 0.5% 5 MG/ML 30 ML SDV ONE (09:02)
[2022-02-26 13:50] VITALS: BP 140/73; PULSE 60
== END 2022-02-26 12:55 | disposition home or self-care (01) ==
LOC: JD.SDS 06:00
PROVIDERS: ATTEND Orthopaedic Surgery
DX: M17.11 Unilateral primary osteoarthritis, right knee (principal); I48.91 Unspecified atrial fibrillation; M10.9 Gout, unspecified; G47.33 Obstructive sleep apnea (adult) (pediatric); E78.2 Mixed hyperlipidemia; E03.9 Hypothyroidism, unspecified; I25.2 Old myocardial infarction; I71.2 Thoracic aortic aneurysm, without rupture; G47.419 Narcolepsy without cataplexy; E66.9 Obesity, unspecified; Z68.30 Body mass index [BMI] 30.0-30.9, adult; Z78.9 Other specified health status; Z88.2 Allergy status to sulfonamides; Z88.5 Allergy status to narcotic agent; Z88.1 Allergy status to other antibiotic agents; Z79.01 Long term (current) use of anticoagulants; Z79.890 Hormone replacement therapy; Z79.899 Other long term (current) drug therapy; Z87.891 Personal history of nicotine dependence; Z86.73 Personal history of transient ischemic attack (TIA), and cerebral infarction without residual deficits
CPT/HCPCS: 0055T; 27447; 73560; 97116; 97161; A9270; C1713; C1776; J0171; J1885; J2250; J2270; J2405; J2704; J2795; J3370; J7040; J7120; 01402; 64447; 76942

== ENCOUNTER 2022-11-29 09:48 | Day surgery (SDC) | payer MEDICARE, BC ==
[2022-11-29] MEDS: Lactated Ringers 1,000 ML IV SCH ×2 (09:40→16:30)
[~2022-11-29 09:48] MED LIST changes: -Acetaminophen 325 MG Tab PO SCH; +Clindamycin Phosphate in D5W 900 MG in Premix Bag 1 BAG IV SCH; +Dexamethasone 4 MG/ML 5 ML MDV ONE; +Dexmedetomidine 200 MCG/2 ML SDV ONE; +EPINEPHrine 1 MG/ML 30 ML MDV IRR SCH; +EPINEPHrine 1 MG/ML SDV ONE; +Ketorolac 30 MG/ML SDV ONE; -Lactated Ringers 1,000 ML IV SCH; +Lidocaine 1% 4 ML ONE; +Midazolam 1 MG/ML 2 ML SDV ONE; +Ondansetron 4 MG/2 ML SDV ONE; -Pregabalin 25 MG Cap PO SCH; +Propofol 200 MG/20 ML SDV ONE; +Rocuronium 50 MG/5 ML Vial ONE; +Ropivacaine 0.5% 5 MG/ML 30 ML SDV ONE; -Vancomycin 2 GM in Sodium Chloride 0.9% 500 ML IV ONE; +ceFAZolin 2 GM Vial ONE; +fentaNYL 100 MCG/2 ML SDV ONE; -oxyCODONE ER 10 MG TAB.ER PO SCH
[2022-11-29] MEDS ORDERED: HYDROmorphone 0.5 MG/0.5 ML Syringe ONE (11:15)
[2022-11-29] MEDS ORDERED: fentaNYL 100 MCG/2 ML SDV ONE (11:39)
[2022-11-29] MEDS ORDERED: Neostigmine Methylsulfate 10 MG/10 ML MDV ONE (11:58)
[2022-11-29] MEDS ORDERED: fentaNYL 100 MCG/2 ML SDV IVPUSH PRN (12:59)
[2022-11-29] MEDS ORDERED: Ondansetron 4 MG/2 ML SDV IVPUSH PRN (12:59)
[2022-11-29] MEDS ORDERED: oxyCODONE 5 MG Tab PO PRN ×2 (13:26→20:45)
[2022-11-29] MEDS: HYDROmorphone 0.5 MG/0.5 ML Syringe IVPUSH PRN ×2 (14:50→15:24)
[2022-11-29] MEDS ORDERED: EPINEPHrine 1 MG/ML SDV ONE (15:02)
[2022-11-29] MEDS ORDERED: Ropivacaine 0.5% 5 MG/ML 30 ML SDV ONE (15:02)
[2022-11-29] MEDS ORDERED: Cyclobenzaprine 10 MG Tab PO PRN (15:30)
[2022-11-29] MEDS ORDERED: Albuterol/Ipratropium 3.0-0.5 MG/3 ML Neb Soln NEB PRN (16:22)
[2022-11-29] MEDS ORDERED: Apixaban 5 MG Tab PO ONE (21:00)
[2022-11-30] MEDS ORDERED: Ondansetron 4 MG/2 ML SDV IVPUSH PRN (06:16)
[2022-11-30 09:32] VITALS: BP 132/63; PULSE 70
== END 2022-11-30 11:58 | disposition home or self-care (01) ==
LOC: JD.SDS 09:48 → JD.MS 20:27 → JD.SDS 11-30 11:58
PROVIDERS: ATTEND Orthopaedic Surgery
DX: M75.101 Unspecified rotator cuff tear or rupture of right shoulder, not specified as traumatic (principal); M75.41 Impingement syndrome of right shoulder; M75.51 Bursitis of right shoulder; I48.91 Unspecified atrial fibrillation; E03.9 Hypothyroidism, unspecified; G47.33 Obstructive sleep apnea (adult) (pediatric); G45.9 Transient cerebral ischemic attack, unspecified; Z79.899 Other long term (current) drug therapy; Z88.5 Allergy status to narcotic agent; Z88.1 Allergy status to other antibiotic agents; Z79.890 Hormone replacement therapy; Z98.890 Other specified postprocedural states; Z87.891 Personal history of nicotine dependence; E78.00 Pure hypercholesterolemia, unspecified
CPT/HCPCS: 29822; 29826; 29827; 64415; 87641; 94660; 94760; A9270; C1713; J0171; J1100; J1170; J1885; J2250; J2405; J2704; J2710; J2795; J3010; J3490; J7120; 01610; J0690

== ENCOUNTER 2025-02-04 22:47 | Emergency (ER) | payer BC, MEDICARE ==
[2025-02-04 23:03] VITALS: BP 160/84; PULSE 66
== END 2025-02-04 23:51 | disposition home or self-care (01) ==
LOC: JD.ED 22:47
DX: R22.41 Localized swelling, mass and lump, right lower limb (principal); I48.91 Unspecified atrial fibrillation; I25.2 Old myocardial infarction; E78.00 Pure hypercholesterolemia, unspecified; Z88.5 Allergy status to narcotic agent; Z88.1 Allergy status to other antibiotic agents; Z79.01 Long term (current) use of anticoagulants; Z79.82 Long term (current) use of aspirin; Z79.899 Other long term (current) drug therapy
CPT/HCPCS: 73620-26-RT; 73620-RT; 99283